=== PATIENT | male | born 1950 | race Caucasian/White ===

== ENCOUNTER → 2018-02-09 11:00 | Outpatient (POV) | payer MEDICARE, SELFPAY | PROVIDERS: Visit Provider Nurse Practitioner Acute Care | DX: Z00.00 Encounter for general adult medical examination without abnormal findings (principal) ==

== ENCOUNTER 2018-03-22 22:43 | Observation (INO) ==
[2018-03-22 23:20] LABS: Basophils % 0.5 % (0.1-2.0); Eosinophils # 0.1 K/mm3 (0.0-0.4); Eosinophils % 1.2 % (0.1-12.0); Hematocrit 45.9 % (42.0-52.0); Hemoglobin 15.6 g/dL (14.1-18.0); Lymphocytes # 1.9 K/mm3 (0.7-4.5); Lymphocytes % 23.1 K/mm3 (10-50); Mean Corpuscular HGB Conc 33.9 g/dL (31.8-35.4); Mean Corpuscular Hemoglobin 31.8 pg (27.0-31.2); Mean Corpuscular Volume 93.7 fl (80-94); Mean Platelet Volume 7.4 fl (7.4-10.4); Monocytes # 0.6 K/mm3 (0.1-1.0); Monocytes % 6.9 % (1.7-9.3); Neutrophils # 5.8 K/mm3 (1.8-7.8); Neutrophils % 68.4 % (37.0-80.0); Platelet Count 401 K/mm3 (142-424); Red Cell Distribution Width 13.2 % (11.5-17.5); White Blood Count 8.4 K/mm3 (4.8-10.8)
--- NOTE | 2018-03-22 23:24 | Emergency Department Note ---
ED Disposition Clinical Impression: Angina at rest Disposition: Admitted as Observation Condition on Discharge: Good - Critical Care Critical Care Time: No Attestation: On 03/22/18, the high probability of a clinically significant, sudden or life threatening deterioration of the following system(s) required my full and direct attention, intervention and personal management. The time I documented below is in addition to time spent performing reported procedures but includes the following listed in this critical care notation. Medical Decision Making - Medical Records Medical records reviewed: Yes: I reviewed the patient's medical records. - [place]und Inquiry Pt receiving controlled substance: No Vital Signs: 03/22/18 22:52 03/22/18 22:55 03/22/18 23:24 Temperature 98.6 F Temperature Source Oral Pulse Rate 64 Pulse Rate [Right Radial] 63 77 Respiratory Rate 20 20 Blood Pressure Blood Pressure [Right Arm] 184/104 136/89 Blood Pressure Mean [Right Arm] 130 104 Blood Pressure Source [Right Arm] Blood Pressure Position [Right Arm] 02 Sat by Pulse Oximetry 97 100 Oxygen Delivery Method Room Air 03/22/18 23:30 03/22/18 23:49 03/23/18 00:00 Temperature 98.2 F Temperature Source Oral Pulse Rate 68 Pulse Rate [Right Radial] 66 64 Respiratory Rate 20 Blood Pressure 153/74 Blood Pressure [Right Arm] 158/82 153/74 Blood Pressure Mean [Right Arm] 107 100 Blood Pressure Source [Right Arm] Automatic Cuff Automatic Cuff Blood Pressure Position [Right Arm] Supine Supine 02 Sat by Pulse Oximetry 97 93 L Oxygen Delivery Method - Lab Data Lab results reviewed: Yes: I reviewed the patient's lab results. Lab Results 03/22/18 23:10: WBC 8.4, RBC 4.90, Hgb 15.6, Hct 45.9, MCV 93.7, MCH 31.8 H, MCHC 33.9, RDW 13.2, Plt Count 401, MPV 7.4, Neut % (Auto) 68.4, Lymph % (Auto) 23.1, [place] % (Auto) 6.9, Eos % (Auto) 1.2, Baso % (Auto) 0.5, Neut # (Auto) 5.8 , Lymph # (Auto) 1.9, [place] # (Auto) 0.6, Eos # (Auto) 0.1, Baso # (Auto) 0.0 03/22/18 23:10: Sodium 142, Potassium 3.6, Chloride 105, Carbon Dioxide 30, Anion Gap 10.6, BUN 11, Creatinine 1.16, Estimated Creat Clear 79, Estimated GFR 63, Est GFR ( Amer) 76, Glucose 138 H, Calcium 9.1, Total Bilirubin 0.4, AST 19, ALT 36, Alkaline Phosphatase 73, Total Creatine Kinase 60, CK-MB ( CK-2) < 0.5, CK-MB (CK-2) Rel Index 0.8, Troponin I < 0.02, Total Protein 7.0, Albumin 3.7, Globulin 3.3 H, Albumin/Globulin Ratio 1.1 Result diagrams: 03/22/18 23:10 03/22/18 23:10 Orders (Tests/Meds): ED MEDICATIONS Discontinued Medications Generic Name Dose Route Start Last Admin Trade Name Freq PRN Reason Stop Dose Admin Aspirin 324 mg 03/22/18 23:13 03/22/18 23:25 Aspirin 81mg Chewable Tablet PO 03/22/18 23:14 324 mg ONCE ONE Administration Nitroglycerin 1 gm 03/22/18 23:38 03/22/18 23:39 Nitroglycerin 1 Inch Oint Udp TD 03/22/18 23:39 1 gm ONCE ONE Administration ORDERS Category Date Time Status XR chest 2V Stat Exams 03/22/18 22:58 Taken - Radiology Data #1 Image(s): Chest Image Reviewed: Yes I reviewed the patient's radiology image Preliminary Findings: Normal/NAD - ECG Data Tracing #1 I reviewed this ECG and interpreted as documented below: Normal Sinus Rhythm: Yes Ischemic changes: non-specific ST-T wave changes, t wave inversions - Physician Consults Physician Consulted: julián Reason -: Admission Chest Pain HPI - General Chief Complaint: Chest Pain Stated Complaint: High bp Time Seen by Provider: 03/22/18 23:23 Mode of Arrival: Family Vehicle Source of Information: Patient, Spouse, Medical Record Limitations: No Limitations Description of Symptoms (Recalled from ER Triage Doc. by RN): HYPERTENSION, CHEST PAIN THAT BEGAN AT APPROX 2000 TONIGHT WHILE WATCHING TV. PT STATES THAT HE CHECKED HIS BP WHEN HIS HEART STARTED ACTING UP AND FOUND THAT HIS BP WAS HIGH. - History of Present Illness HPI narrative: chest tightness over the last few hrs with assoc elevated bp - had gxt last yr which pt reports as neg MD complaint: chest pain indicative of cardiac Onset (ago): hour(s) Duration: now resolved Activity at onset: during rest Pain location: substernal Severity: moderate Quality: tightness Risk Factors for CAD: Hypertension, Hypercholesterolemia, Family Hx of CAD Treatments prior to or on arrival for Cardiac Chest Pain: none - MARQUIS Score Non-Stemi Age of patient: 65 yrs or more Number of risk factors for CAD: Presence of 3 or more Prior coronary artery stenosis(seen in coronary angiography): Less than 50% ST-Segment deviation on ECG (more than 1 min): Absent Prior aspirin intake: ASA intake in the last 7 days Severe anginal chest pain: Two or more episodes in last 24 hours Elevated cardiac markers(CK-MB or troponin): Absent Non-Stemi Risk Score: 4 - Related Data Prior Cardiac Testing/Procedures: Stress Test Home Medications Medication Instructions Recorded Confirmed Atenolol [Atenolol 50mg Tab] 50 mg PO DAILY 03/22/18 03/22/18 Atorvastatin Calcium [Atorvastatin 10 mg PO DAILY 03/22/18 03/22/18 10mg Tab] Cetirizine HCl [Zyrtec] 10 mg PO DAILY 03/22/18 03/22/18 Levothyroxine 88mcg (0.088mg) Tab 88 mcg PO DAILY 03/22/18 03/22/18 Lisinopril/Hydrochlorothiazide 12.5 mg PO DAILY 03/22/18 03/22/18 [Lisinopril-Hctz 10-12.5 mg Tab] Metoclopramide HCl [Metoclopramide 5 mg PO DAILY 03/22/18 03/22/18 10mg Tablet] Omeprazole [Omeprazole 20mg 20 mg PO DAILY 03/22/18 03/22/18 Capsule] Allergies Allergy/AdvReac Type Severity Reaction Status Date / Time No Known Allergies Allergy Unverified 11/11/17 14:36 [facility] History I have reviewed the patient's past medical history: Yes Medical History: Denies:: Cancer, Diabetes Mellitus Type 1, Diabetes Mellitus Type 2, MRSA Amputation: No Fractures: No - Social History Smoking Status: Never smoker Alcohol Intake: never - Psychiatric History Expresses thoughts of harming self/others: None Suicide Plan Description: No Plan ROS Obtained: Yes All systems reviewed & no additional complaints - Constitutional Constitutional: Denies fever(s) - Eyes Eyes: Denies change in vision - ENT Ears, Nose, Mouth, and Throat: Denies sore throat - Cardiovascular Cardiovascular: Reports chest pain, Reports chest pain at rest - Respiratory Respiratory: No cough, No coughing up blood - Gastrointestinal Gastrointestingal: Denies: abdominal pain - Genitourinary Female Genitourinary: Denies hematuria - Musculoskeletal Musculoskeletal: Denies joint pain - Integumentary/Breasts Skin/Breast: Denies rash - Neurologic Neurologic: Denies seizure-like activity Physical Exam - General General appearance: in no apparent distress - Head Head exam: normocephalic - Eye Eye exam: Present: PERRL, EOMI - ENT ENT exam: Present: mucous membranes moist - Neck Neck exam: Present: trachea midline - Respiratory Respiratory exam: Present: normal lung sounds bilaterally. Absent: respiratory distress - Cardiovascular Cardiovascular exam: Present: regular rate, systolic murmur, +S4 - Abdominal Exam Abdominal exam: Present: soft - Extremities Exam Extremities exam: Absent: calf tenderness - Neurological Exam Neurological exam: Present: alert, oriented X3, CN II-XII intact - Psychiatric Psychiatric exam: Present: normal affect - Skin Skin exam: Absent: rash
[2018-03-22 23:41] LABS: Alanine Aminotransferase 36 U/L (12-78); Albumin Level 3.7 gm/dL (3.4-5.0); Albumin/Globulin Ratio 1.1 (1.1-1.8); Alkaline Phosphatase 73 U/L (46-116); Anion Gap 10.6 mEq/L (5-15); Aspartate Amino Transferase 19 U/L (15-37); Bilirubin,Total 0.4 mg/dL (0.2-1.0); Blood Urea Nitrogen 11 mg/dL (7-18); Calcium 9.1 mg/dL (8.5-10.1); Carbon Dioxide 30 mmol/L (21.0-32.0); Chloride 105 mmol/L (98-107); Creatine Kinase 60 U/L (39-308); Globulin 3.3 gm/dl (1.3-3.2); Glucose 138 mg/dL (74-106); Potassium 3.6 mmoL/L (3.5-5.1); Sodium 142 mmol/L (136-145)
[2018-03-23 06:39] LABS: Basophils % 0.7 % (0.1-2.0); Eosinophils # 0.1 K/mm3 (0.0-0.4); Lymphocytes # 1.3 K/mm3 (0.7-4.5); Monocytes # 0.4 K/mm3 (0.1-1.0)
[2018-03-23 06:46] LABS: Basophils # 0.1 K/mm3 (0-0.2); Eosinophils % 1.4 % (0.1-12.0); Hematocrit 42.9 % (42.0-52.0); Lymphocytes % 21.3 K/mm3 (10-50); Mean Corpuscular HGB Conc 32.7 g/dL (31.8-35.4); Mean Corpuscular Hemoglobin 30.6 pg (27.0-31.2); Mean Corpuscular Volume 93.7 fl (80-94); Mean Platelet Volume 7.5 fl (7.4-10.4); Monocytes % 5.9 % (1.7-9.3); Neutrophils # 4.3 K/mm3 (1.8-7.8); Neutrophils % 70.7 % (37.0-80.0); Platelet Count 346 K/mm3 (142-424); Red Blood Count 4.58 M/mm3 (4.60-6.20); White Blood Count 6.1 K/mm3 (4.8-10.8)
[2018-03-23 06:48] LABS: Anion Gap 8.9 mEq/L (5-15); Blood Urea Nitrogen 13 mg/dL (7-18); Carbon Dioxide 30 mmol/L (21.0-32.0); Chloride 107 mmol/L (98-107); Chol/HDL Ratio 3.5 (1-3.5); Cholesterol 95 mg/dL (140-200); Glucose 104 mg/dL (74-106); HDL Cholesterol 27 mg/dL (27-67); LDL Cholesterol 54 mg/dL (0-130); Potassium 3.9 mmoL/L (3.5-5.1); Sodium 142 mmol/L (136-145); Triglycerides 70 mg/dL (30-200); VLDL Cholesterol 14 mg/dL (0-40)
--- NOTE | 2018-03-23 07:14 | History & Physical Report ---
*Admission Date: 03/22/18 *Chief complaint: Chest pain *History of present illness: 67-year-old male with history of hypertension and hyperlipidemia presented to the emergency department after onset of chest pain at home. Patient reports he was seated when he developed a substernal chest pain that was nonradiating in nature. Patient checked his blood pressure at home and got 150/85. When his chest pain did not cease he decided to come to the emergency department for evaluation. By the time he arrived in the emergency department chest pain had stopped. In the ER blood pressure was noted to be elevated. He was given nitroglycerin and aspirin, but once again she is chest pain had already stopped. Patient underwent routine chest pain workup in the emergency department without significant findings. Patient was admitted for rule out of [place] and cardiology consultation. Patient was admitted almost exactly 1 year ago for chest pain as well and at that time had a negative Cardiolite stress test and unremarkable echocardiogram. Patient reported that he had another brief episode of chest pain this morning prior to his echocardiogram [facility] History Medical History: Reports:: Hyperlipidemia, Hypertension Denies:: Cancer, Diabetes Mellitus Type 1, Diabetes Mellitus Type 2, MRSA Other Medical History: Reports: Hypothyroidism Other Surgeries: Yes: Cancer Surgery (COLON RESECTION), Colon Resection Amputation: No Fractures: No - *Social History Educational Level: Completed High School Smoking Status: Never smoker Alcohol Intake: never Occupational Status: employed Housing: house Household Members: spouse - Psychiatric History Expresses thoughts of harming self/others: None Suicide Plan Description: No Plan *Family Hx:: Heart Attack Review of Systems - Review of Systems Review of systems:: pertinent systems reviewed and negative unless documented below - Constitutional Denies anorexia, Denies chills - Eyes Denies change in vision - *Cardiovascular Reports chest pain, Reports chest pain at rest - *Respiratory Denies shortness of breath, Denies shortness of breath with activity - *Gastrointestinal Denies belching, Denies bloating - *Neurologic Denies seizure-like activity Meds Home Medications Medication Instructions Recorded Confirmed Type Atenolol [Atenolol 50mg Tab] 50 mg PO DAILY 03/22/18 03/23/18 History Atorvastatin Calcium [Atorvastatin 10 mg PO HS 03/22/18 03/23/18 History 10mg Tab] Cetirizine HCl [Zyrtec] 10 mg PO HS 03/22/18 03/23/18 History Levothyroxine 88mcg (0.088mg) Tab 88 mcg PO DAILY 03/22/18 03/23/18 History Lisinopril/Hydrochlorothiazide 12.5 mg PO DAILY 03/22/18 03/23/18 History [Lisinopril-Hctz 10-12.5 mg Tab] Metoclopramide HCl [Metoclopramide 5 mg PO DAILY 03/22/18 03/23/18 History 10mg Tablet] Omeprazole [Omeprazole 20mg 20 mg PO HS 03/22/18 03/23/18 History Capsule] Acetaminophen 500 mg PO BID 03/23/18 03/23/18 History Fluticasone Propionate [Flovent 50 mcg IH BID 03/23/18 03/23/18 History Diskus] Multivitamin [Multivitamins] 1 each PO DAILY 03/23/18 03/23/18 History Allergies Allergy/AdvReac Type Severity Reaction Status Date / Time No Known Allergies Allergy Verified 03/23/18 00:57 Exam Vital signs and Labs for Last 24 Hours: Temp Pulse Resp BP Pulse Ox 97.9 F 69 16 102/58 94 L 03/23/18 04:38 03/23/18 04:38 03/23/18 04:38 03/23/18 04:38 03/23/18 04:38 Laboratory Results - last 24 hr 03/22/18 23:10: WBC 8.4, RBC 4.90, Hgb 15.6, Hct 45.9, MCV 93.7, MCH 31.8 H, MCHC 33.9, RDW 13.2, Plt Count 401, MPV 7.4, Neut % (Auto) 68.4, Lymph % (Auto) 23.1, [place] % (Auto) 6.9, Eos % (Auto) 1.2, Baso % (Auto) 0.5, Neut # (Auto) 5.8 , Lymph # (Auto) 1.9, [place] # (Auto) 0.6, Eos # (Auto) 0.1, Baso # (Auto) 0.0 03/22/18 23:10: Sodium 142, Potassium 3.6, Chloride 105, Carbon Dioxide 30, Anion Gap 10.6, BUN 11, Creatinine 1.16, Estimated Creat Clear 79, Estimated GFR 63, Est GFR ( Amer) 76, Glucose 138 H, Calcium 9.1, Total Bilirubin 0.4, AST 19, ALT 36, Alkaline Phosphatase 73, Total Creatine Kinase 60, CK-MB ( CK-2) < 0.5, CK-MB (CK-2) Rel Index 0.8, Troponin I < 0.02, Total Protein 7.0, Albumin 3.7, Globulin 3.3 H, Albumin/Globulin Ratio 1.1 03/23/18 00:40: Troponin I < 0.02 03/23/18 02:45: Troponin I < 0.02 03/23/18 06:00: WBC 6.1 D, RBC 4.58 L, Hgb 14.0 L D, Hct 42.9, MCV 93.7, MCH 30.6, MCHC 32.7, RDW 13.0, Plt Count 346, MPV 7.5, Neut % (Auto) 70.7, Lymph % ( Auto) 21.3, [place] % (Auto) 5.9, Eos % (Auto) 1.4, Baso % (Auto) 0.7, Neut # (Auto ) 4.3, Lymph # (Auto) 1.3, [place] # (Auto) 0.4, Eos # (Auto) 0.1, Baso # (Auto) 0.1 03/23/18 06:00: Sodium 142, Potassium 3.9, Chloride 107, Carbon Dioxide 30, Anion Gap 8.9, BUN 13, Creatinine 1.04, Estimated Creat Clear 91, Estimated GFR 72, Est GFR ( Amer) 87, Glucose 104 D, Magnesium 1.8, Troponin I < 0.02 , Triglycerides 70, Cholesterol 95 L, LDL Cholesterol 54, VLDL Cholesterol 14, HDL Cholesterol 27, Cholesterol/HDL Ratio 3.5 I & O for Last 24 hours: Intake & Output 03/20/18 03/21/18 03/22/18 03/23/18 11:59 11:59 11:59 11:59 Intake Total 227 / 227 Balance 227 / 227 Weight 200 lb 8 oz Narrative: Patient is awake and alert and in no distress. ENT exam is grossly normal. Neck is without carotid bruits. Lungs are clear to auscultation. Heart has regular rate and rhythm. Extremities are without any pedal edema. H&P: Result - Labs Labs: Short CBC 03/22/18 03/23/18 Range/Units 23:10 06:00 WBC 8.4 6.1 D (4.8-10.8) K/mm3 Hgb 15.6 14.0 L D (14.1-18.0) g/dL Hct 45.9 42.9 (42.0-52.0) % Plt Count 401 346 (142-424) K/mm3 BMP 03/22/18 03/23/18 23:10 06:00 Sodium 142 142 Potassium 3.6 3.9 Chloride 105 107 Carbon Dioxide 30 30 BUN 11 13 Creatinine 1.16 1.04 Glucose 138 H 104 D Calcium 9.1 Cardiac Enzymes 03/22/18 03/23/18 03/23/18 Range/Units 23:10 00:40 02:45 Total Creatine Kinase 60 (39-308) U/L CK-MB (CK-2) < 0.5 (0.0-3.6) ng/ml Troponin I < 0.02 < 0.02 < 0.02 (0.00-0.06) ng/ml 03/23/18 Range/Units 06:00 Total Creatine Kinase (39-308) U/L CK-MB (CK-2) (0.0-3.6) ng/ml Troponin I < 0.02 (0.00-0.06) ng/ml Liver Function 03/22/18 Range/Units 23:10 Total Bilirubin 0.4 (0.2-1.0) mg/dL AST 19 (15-37) U/L ALT 36 (12-78) U/L Alkaline Phosphatase 73 (46-116) U/L Albumin 3.7 (3.4-5.0) gm/dL Assessment and Plan (1) Angina at rest Current visit: Yes Status: Acute Category: Medical Code(s): I20.8 - Other forms of angina pectoris - Assessment and plan all Dx Assessment and Plan for all problems:: 1. Echocardiogram and cardiology consultation
--- NOTE | 2018-03-23 07:24 | Pharmacy Consult Notes ---
[facility] Pharmacy VTE Monitoring - Patient Demographics Admission date: 03/23/18 Report Date: 03/23/18 Time: 07:24 Allergies/Adverse Reactions: Patient Allergies No Known Allergies Allergy (Verified 03/23/18 00:57) Height: 1.73 m Weight: 90.945 kg Patient Problems: Current Active Problems Angina at rest (Acute) - VTE Risk Labs: VTE Related Lab Results Hgb 14.0 g/dL (14.1-18.0) L D 03/23/18 06:00 Hct 42.9 % (42.0-52.0) 03/23/18 06:00 Plt Count 346 K/mm3 (142-424) 03/23/18 06:00 BUN 13 mg/dL (7-18) 03/23/18 06:00 Creatinine 1.04 mg/dL (0.70-1.30) 03/23/18 06:00 Estimated Creat Clear 91 mL/min (0-300) 03/23/18 06:00 Was VTE Risk Assessment Performed: Yes VTE Score: 2 VTE Risk Level: Very Low Risk - Prophylaxis VTE Prophylaxis Ordered?: Yes Types of VTE Prophylaxis: TEDS Knee High Location of Applied Device: Bilateral Lower Extremeties - VTE Diagnosis Confirmed Treatment or plan recommended: Continue Current Treatment
--- NOTE | 2018-03-23 08:09 | Consult Report ---
History of Present Illness Consult date: 03/23/18 Requesting physician: Alden Hidalgo Consult reason: chest pain Chief complaint: chest pain Additional Medical History:: 1. chest pain, 03/2017 A. Lexiscan myoview, no ischemia with normal EF B. 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 Normal cardiac cath, 1990 2. HTN 3. HLD 4. FH of CAD in father at age 64 5. Hypothyroidism 6. Colon cancer with partial resection. No chemo or radiation A. EGD, 10/2017, moderate esophageal dysmotility with obstipation, mild GERD 7. Cholecystectomy History of present illness: 67-year-old male with history of hypertension and hyperlipidemia presented to the emergency department after onset of chest pain at home. Patient reports he was seated when he developed a substernal chest pain that was nonradiating in nature. Patient checked his blood pressure at home and got 150/85. When his chest pain did not cease he decided to come to the emergency department for evaluation. By the time he arrived in the emergency department chest pain had stopped. In the ER blood pressure was noted to be elevated. He was given nitroglycerin and aspirin, but once again his chest pain had already stopped. Patient underwent routine chest pain workup in the emergency department without significant findings. Patient was admitted for rule out of [place] and cardiology consultation. Patient was admitted almost exactly 1 year ago for chest pain as well and at that time had a negative Cardiolite stress test and unremarkable echocardiogram. Patient reported that he had another brief episode of chest pain this morning prior to his echocardiogram. The above per Dr. Hidalgo. Pt relates the chest pain mentioned above has recurred this AM and is increasing in intensity. He is very concerned about having an NE due to his father having one at age 64. [facility] History Medical History: Reports:: Hyperlipidemia, Hypertension Denies:: Cancer, Diabetes Mellitus Type 1, Diabetes Mellitus Type 2, MRSA Other Medical History: Reports: Hypothyroidism, Thyroid Disease Other Surgeries: Yes: Cancer Surgery (COLON RESECTION), Colon Resection Amputation: No Fractures: No - *Social History Educational Level: Completed High School Smoking Status: Never smoker Alcohol Intake: never Occupational Status: employed Housing: house Household Members: spouse - Psychiatric History Expresses thoughts of harming self/others: None Suicide Plan Description: No Plan *Family Hx:: Heart Attack Meds Home Medications Medication Instructions Recorded Confirmed Type Atenolol [Atenolol 50mg Tab] 50 mg PO DAILY 03/22/18 03/23/18 History Atorvastatin Calcium [Atorvastatin 10 mg PO HS 03/22/18 03/23/18 History 10mg Tab] Cetirizine HCl [Zyrtec] 10 mg PO HS 03/22/18 03/23/18 History Levothyroxine Sodium 88 mcg PO DAILY 03/22/18 03/23/18 History [Levothyroxine 88mcg (0.088mg) Tab] Lisinopril/Hydrochlorothiazide 1 tab PO DAILY 03/22/18 03/23/18 History [Lisinopril-Hctz 10-12.5 mg Tab] Metoclopramide HCl [Metoclopramide 5 mg PO DAILY 03/22/18 03/23/18 History 10mg Tablet] Omeprazole [Omeprazole 20mg 20 mg PO HS 03/22/18 03/23/18 History Capsule] Acetaminophen 500 mg PO BID 03/23/18 03/23/18 History Fluticasone Propionate [Flovent 1 spray IH BID 03/23/18 03/23/18 History Diskus] Multivitamin [Multivitamins] 1 tab PO DAILY 03/23/18 03/23/18 History Allergies Allergy/AdvReac Type Severity Reaction Status Date / Time No Known Allergies Allergy Verified 03/23/18 00:57 Review of Systems - *Cardiovascular Reports chest pain - *Respiratory Denies shortness of breath - *Gastrointestinal Reports heartburn, Denies abdominal pain - *Neurologic Denies seizure-like activity Exam Vital signs and Labs for Last 24 Hours: Temp Pulse Resp BP Pulse Ox 98.4 F 55 L 20 118/68 98 03/23/18 07:22 03/23/18 07:22 03/23/18 07:22 03/23/18 07:22 03/23/18 07:22 Laboratory Results - last 24 hr 03/22/18 23:10: WBC 8.4, RBC 4.90, Hgb 15.6, Hct 45.9, MCV 93.7, MCH 31.8 H, MCHC 33.9, RDW 13.2, Plt Count 401, MPV 7.4, Neut % (Auto) 68.4, Lymph % (Auto) 23.1, [place] % (Auto) 6.9, Eos % (Auto) 1.2, Baso % (Auto) 0.5, Neut # (Auto) 5.8 , Lymph # (Auto) 1.9, [place] # (Auto) 0.6, Eos # (Auto) 0.1, Baso # (Auto) 0.0 03/22/18 23:10: Sodium 142, Potassium 3.6, Chloride 105, Carbon Dioxide 30, Anion Gap 10.6, BUN 11, Creatinine 1.16, Estimated Creat Clear 79, Estimated GFR 63, Est GFR ( Amer) 76, Glucose 138 H, Calcium 9.1, Total Bilirubin 0.4, AST 19, ALT 36, Alkaline Phosphatase 73, Total Creatine Kinase 60, CK-MB ( CK-2) < 0.5, CK-MB (CK-2) Rel Index 0.8, Troponin I < 0.02, Total Protein 7.0, Albumin 3.7, Globulin 3.3 H, Albumin/Globulin Ratio 1.1 03/23/18 00:40: Troponin I < 0.02 03/23/18 02:45: Troponin I < 0.02 03/23/18 06:00: WBC 6.1 D, RBC 4.58 L, Hgb 14.0 L D, Hct 42.9, MCV 93.7, MCH 30.6, MCHC 32.7, RDW 13.0, Plt Count 346, MPV 7.5, Neut % (Auto) 70.7, Lymph % ( Auto) 21.3, [place] % (Auto) 5.9, Eos % (Auto) 1.4, Baso % (Auto) 0.7, Neut # (Auto ) 4.3, Lymph # (Auto) 1.3, [place] # (Auto) 0.4, Eos # (Auto) 0.1, Baso # (Auto) 0.1 03/23/18 06:00: Sodium 142, Potassium 3.9, Chloride 107, Carbon Dioxide 30, Anion Gap 8.9, BUN 13, Creatinine 1.04, Estimated Creat Clear 91, Estimated GFR 72, Est GFR ( Amer) 87, Glucose 104 D, Magnesium 1.8, Troponin I < 0.02 , Triglycerides 70, Cholesterol 95 L, LDL Cholesterol 54, VLDL Cholesterol 14, HDL Cholesterol 27, Cholesterol/HDL Ratio 3.5 I & O for Last 24 hours: Intake & Output 03/20/18 03/21/18 03/22/18 03/23/18 11:59 11:59 11:59 11:59 Intake Total 227 / 227 Balance 227 / 227 Weight 200 lb 8 oz - *Routine Neck Exam Absent: JVD, carotid bruit - *Routine Respiratory Exam Present: CTA bilaterally - *Routine Cardiovascular Exam Present: RRR. Absent: murmur, gallop - *Routine Abdominal Exam Present: soft. Absent: tenderness - *Routine Extremities Exam Absent: edema - *Routine Neurological Exam Present: alert, oriented X3, moving all extremities Assessment and Plan (1) Angina at rest Current visit: Yes Status: Acute Category: Medical Code(s): I20.8 - Other forms of angina pectoris (2) Hypertension Current visit: Yes Status: Acute Category: Medical Code(s): I10 - Essential (primary) hypertension (3) Hyperlipidemia Current visit: Yes Status: Acute Category: Medical Code(s): E78.5 - Hyperlipidemia, unspecified (4) GERD (gastroesophageal reflux disease) Current visit: Yes Status: Acute Category: Medical Code(s): K21.9 - Gastro -esophageal reflux disease without esophagitis (5) FH myocardial infarction male first degree age known Current visit: Yes Status: Acute Category: Medical Code(s): Z82.49 - Family history of ischemic heart disease and other diseases of the circulatory system - Assessment and plan all Dx Assessment and Plan for all problems:: 1. No evidence of ACS, but with recurrent chest pain despite NTG paste in patient with HTN, HLD and FH of ASHD in father, will recommend proceeding with [facility] today. Pt agrees to proceed. MARQUIS score of 3 (age, recurrent chest pain, risk factors) 2. Continue current meds including atenolol, omeprazole and statin. He did receive ASA last night.
--- NOTE | 2018-03-23 12:57 | Discharge Summary ---
General - General Admission date:: 03/23/18 Discharge date: 03/23/18 HPI HPI: 67-year-old male with history of hypertension and hyperlipidemia presented to the emergency department after onset of chest pain at home. Patient reports he was seated when he developed a substernal chest pain that was nonradiating in nature. Patient checked his blood pressure at home and got 150/85. When his chest pain did not cease he decided to come to the emergency department for evaluation. By the time he arrived in the emergency department chest pain had stopped. In the ER blood pressure was noted to be elevated. He was given nitroglycerin and aspirin, but once again she is chest pain had already stopped. Patient underwent routine chest pain workup in the emergency department without significant findings. Patient was admitted for rule out of NV and cardiology consultation. Patient was admitted almost exactly 1 year ago for chest pain as well and at that time had a negative Cardiolite stress test and unremarkable echocardiogram. Patient reported that he had another brief episode of chest pain this morning prior to his echocardiogram Hospital Course Hospital Course: Patient was admitted and underwent left heart Catheterization. LHC revealed a myocardial bridge but no obstrutive CAD. Left Ventricular end diastolic pressure was elevated so furosemide was added to his medical regimen. Once the post procedure observation period was complete patient was discharged to home. Objective Vital signs: Temp Pulse Resp BP Pulse Ox 97 F L 67 20 80/47 95 03/23/18 12:00 03/23/18 12:00 03/23/18 12:00 03/23/18 12:00 03/23/18 12:00 Results Labs on day of discharge: Labs from last 24 hours 03/23/18 03/23/18 03/23/18 12:05 06:00 06:00 WBC 6.1 D RBC 4.58 L Hgb 14.0 L D Hct 42.9 MCV 93.7 MCH 30.6 MCHC 32.7 RDW 13.0 Plt Count 346 MPV 7.5 Neut % (Auto) 70.7 Lymph % (Auto) 21.3 Crockett % (Auto) 5.9 Eos % (Auto) 1.4 Baso % (Auto) 0.7 Neut # (Auto) 4.3 Lymph # (Auto) 1.3 Crockett # (Auto) 0.4 Eos # (Auto) 0.1 Baso # (Auto) 0.1 Sodium 142 Potassium 3.9 Chloride 107 Carbon Dioxide 30 Anion Gap 8.9 BUN 13 Creatinine 1.04 Estimated Creat Clear 91 Estimated GFR 72 Est GFR ( Amer) 87 Glucose 104 D POC Glucose 97 Calcium Magnesium 1.8 Total Bilirubin AST ALT Alkaline Phosphatase Total Creatine Kinase CK-MB (CK-2) CK-MB (CK-2) Rel Index Troponin I < 0.02 Total Protein Albumin Globulin Albumin/Globulin Ratio Triglycerides 70 Cholesterol 95 L LDL Cholesterol 54 VLDL Cholesterol 14 HDL Cholesterol 27 Cholesterol/HDL Ratio 3.5 03/23/18 03/23/18 03/22/18 02:45 00:40 23:10 WBC RBC Hgb Hct MCV MCH MCHC RDW Plt Count MPV Neut % (Auto) Lymph % (Auto) Crockett % (Auto) Eos % (Auto) Baso % (Auto) Neut # (Auto) Lymph # (Auto) Crockett # (Auto) Eos # (Auto) Baso # (Auto) Sodium 142 Potassium 3.6 Chloride 105 Carbon Dioxide 30 Anion Gap 10.6 BUN 11 Creatinine 1.16 Estimated Creat Clear 79 Estimated GFR 63 Est GFR ( Amer) 76 Glucose 138 H POC Glucose Calcium 9.1 Magnesium Total Bilirubin 0.4 AST 19 ALT 36 Alkaline Phosphatase 73 Total Creatine Kinase 60 CK-MB (CK-2) < 0.5 CK-MB (CK-2) Rel Index 0.8 Troponin I < 0.02 < 0.02 < 0.02 Total Protein 7.0 Albumin 3.7 Globulin 3.3 H Albumin/Globulin Ratio 1.1 Triglycerides Cholesterol LDL Cholesterol VLDL Cholesterol HDL Cholesterol Cholesterol/HDL Ratio 03/22/18 23:10 WBC 8.4 RBC 4.90 Hgb 15.6 Hct 45.9 MCV 93.7 MCH 31.8 H MCHC 33.9 RDW 13.2 Plt Count 401 MPV 7.4 Neut % (Auto) 68.4 Lymph % (Auto) 23.1 Crockett % (Auto) 6.9 Eos % (Auto) 1.2 Baso % (Auto) 0.5 Neut # (Auto) 5.8 Lymph # (Auto) 1.9 Crockett # (Auto) 0.6 Eos # (Auto) 0.1 Baso # (Auto) 0.0 Sodium Potassium Chloride Carbon Dioxide Anion Gap BUN Creatinine Estimated Creat Clear Estimated GFR Est GFR ( Amer) Glucose POC Glucose Calcium Magnesium Total Bilirubin AST ALT Alkaline Phosphatase Total Creatine Kinase CK-MB (CK-2) CK-MB (CK-2) Rel Index Troponin I Total Protein Albumin Globulin Albumin/Globulin Ratio Triglycerides Cholesterol LDL Cholesterol VLDL Cholesterol HDL Cholesterol Cholesterol/HDL Ratio DS: Diagnosis - Discharge Diagnosis (1) Angina at rest Status: Acute (2) Hypertension Status: Acute (3) Hyperlipidemia Status: Acute (4) GERD (gastroesophageal reflux disease) Status: Acute (5) FH myocardial infarction male first degree age known Status: Acute Discharge Plan - Patient Discharge Instructions ACTIVITY: Continue current activity DIET: continue same diet - Follow up Plan Follow up with: Shoaib Araiza MD [Staff Physician] - 1 week Alden Hidalgo MD [Primary Care Provider] - 2 weeks Home Medications: Home Medications Medication Instructions Recorded Confirmed Type Atenolol [Atenolol 50mg Tab] 50 mg PO DAILY 03/22/18 03/23/18 History Atorvastatin Calcium [Atorvastatin 10 mg PO HS 03/22/18 03/23/18 History 10mg Tab] Cetirizine HCl [Zyrtec] 10 mg PO HS 03/22/18 03/23/18 History Levothyroxine Sodium 88 mcg PO DAILY 03/22/18 03/23/18 History [Levothyroxine 88mcg (0.088mg) Tab] Lisinopril/Hydrochlorothiazide 1 tab PO DAILY 03/22/18 03/23/18 History [Lisinopril-Hctz 10-12.5 mg Tab] Metoclopramide HCl [Metoclopramide 5 mg PO ACHS 03/22/18 03/23/18 History 10mg Tablet] Omeprazole [Omeprazole 20mg 40 mg PO HS 03/22/18 03/23/18 History Capsule] Acetaminophen 500 mg PO BID 03/23/18 03/23/18 History Fluticasone Propionate [Flovent 1 spray IH BID 03/23/18 03/23/18 History Diskus] Montelukast Sodium [Montelukast 10 mg PO HS 03/23/18 03/23/18 History 10mg Tab] Multivitamin [Multivitamins] 1 tab PO DAILY 03/23/18 03/23/18 History Prescriptions/Medication Reconciliation: New Furosemide [Lasix 40mg tablet] 40 mg PO DAILY #30 tab Continue Metoclopramide HCl [Metoclopramide 10mg Tablet] 5 mg PO ACHS Lisinopril/Hydrochlorothiazide [Lisinopril-Hctz 10-12.5 mg Tab] 1 tab PO DAILY Atorvastatin Calcium [Atorvastatin 10mg Tab] 10 mg PO HS Omeprazole [Omeprazole 20mg Capsule] 40 mg PO HS Levothyroxine Sodium [Levothyroxine 88mcg (0.088mg) Tab] 88 mcg PO DAILY Atenolol [Atenolol 50mg Tab] 50 mg PO DAILY Fluticasone Propionate [Flovent Diskus] 1 spray IH BID Multivitamin [Multivitamins] 1 tab PO DAILY Acetaminophen 500 mg PO BID Montelukast Sodium [Montelukast 10mg Tab] 10 mg PO HS Cetirizine HCl [Zyrtec] 10 mg PO HS
--- NOTE | 2018-03-23 21:58 | Cardiology Report ---
PROCEDURE: 2-D M-mode and color Doppler study INDICATIONS FOR THE TEST: Chest pain X COPD Heart Murmur Tobacco Smoking Palpitations Fatigue Syncope Edema HypertensionXDiabetes Mellitus Rheumatic Fever SOB TEJEDA Obesity HyperlipidemiaX Family History HD Additional History MVP PATIENT INFORMATION HEIGHT: 68 WEIGHT:195 GENDER: Male B/P:136/89 2-D/M-MODE INTERPRETATION: 2-D MEASUREMENTS OBSERVED VALUES IN CMS Right Ventricular Dimension (RVDd) 2.5 Interventricular Septum (Thickness)(IVsd) 1.1 Left Ventricular Internal Dimensions(LVIDd) 4.9 Left Ventricular Posterior Wall (Thickness)(LVPWd) 1.1 Aortic Root 3.0 Aortic Cusp Separation Left Atrial Dimensions (LAD) 3.2 2D 1. Technically difficult study because of the patient's factor and poor acoustic windows 2. Left atrium is mildly enlarged, left ventricle is normal size mild concentric left ventricular hypertrophy, visually estimated ejection fraction 55% with no obvious regional wall motion abnormality. 3. The right atrium and right ventricle are normal size and contractility. 4. The aortic valve is minimally thickened and fibrosed. 5. The mitral valve leaflets of myxomatous, there is mild prolapse of both anterior and posterior mitral leaflet. 6. The tricuspid valve is structurally normal 7. The pulmonic valve is poorly visualized. 8. No significant pericardial effusion noted. DOPPLER INTERROGATION: Doppler interrogation of the aortic, mitral and tricuspid valvular presence of mild mitral and tricuspid regurgitation, tricuspid and jet velocity insufficient for acquisition of the right ventricular systolic pressure. Diastolic parameters are inconclusive. CONCLUSION: 1. Technically difficult study because of the patient's factor and poor acoustic windows 2. Mildly enlarged left atrium, normal left ventricular size, mild concentric left ventricular hypertrophy, visually estimated ejection fraction 55% with no obvious regional wall motion abnormality, diastolic parameters are inconclusive. 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 Mild tricuspid regurgitation 5. No significant pericardial effusion noted.
== END 2018-03-23 16:15 | disposition home or self-care (01) ==
LOC: 2ND 22:43 → ER 22:43 → 2ND 03-23 00:46
PROVIDERS: ADMIT Internal Medicine Adolescent Medicine; ATTEND Family Medicine

== ENCOUNTER → 2018-05-13 08:08 | Outpatient (CLI) | payer MEDICARE, SELFPAY ==
[2018-05-13 09:01] LABS: Anion Gap 10.9 mEq/L (5-15); Blood Urea Nitrogen 17 mg/dL (7-18); Calcium 9.5 mg/dL (8.5-10.1); Carbon Dioxide 31 mmol/L (21.0-32.0); Chloride 103 mmol/L (98-107); Creatinine,Serum 1.19 mg/dL (0.70-1.30); Estimated Glomerular Filt Rate 61 ml/min (>60); GFR (African American) 74 ML/MIN (>60); Glucose 109 mg/dL (74-106); Potassium 3.9 mmoL/L (3.5-5.1); Sodium 141 mmol/L (136-145)
== END ==
PROVIDERS: Visit Provider Physician Assistant
DX: R07.89 Other chest pain (principal); Q24.5 Malformation of coronary vessels; R94.31 Abnormal electrocardiogram [ECG] [EKG]; I25.118 Atherosclerotic heart disease of native coronary artery with other forms of angina pectoris; R06.09 Other forms of dyspnea; I10 Essential (primary) hypertension; E78.2 Mixed hyperlipidemia
CPT/HCPCS: 36415; 80048

== ENCOUNTER → 2018-05-26 11:10 | Outpatient (POV) | payer MEDICARE, SELFPAY | PROVIDERS: Visit Provider Otolaryngology | DX: Z00.00 Encounter for general adult medical examination without abnormal findings (principal) ==

== ENCOUNTER → 2018-07-14 08:43 | Outpatient (POV) | payer MEDICARE, SELFPAY | PROVIDERS: Family Provider Family Medicine; Visit Provider Otolaryngology | DX: Z00.00 Encounter for general adult medical examination without abnormal findings (principal) ==

== ENCOUNTER → 2018-07-31 12:49 | Outpatient (CLI) | payer MEDICARE, SELFPAY ==
--- NOTE | 2018-07-31 12:55 | CT_ITS ---
CT sinus wo con CLINICAL INDICATION: ITS.REASON: CHRONIC MAXILLARY SINUSITIS ORDERING PHYSICIAN: Megan Zimmerman MD PATIENT AGE: 68 years COMPARISON: None TECHNIQUE:Axial images obtained with sagittal and coronal reformats. All CT scans at the facility use one or more dose reduction, viz: automated exposure control, ma/kV adjustment per patient size (including targeted exams where dose is matched to indication, i.e. head), or iterative reconstruction technique. FINDINGS: There is mild mucosal thickening of the left maxillary sinus inferiorly. No sinus air-fluid levels are evident. No masses are evident. There is mild leftward nasal septal deviation anteriorly and inferiorly causing narrowing of the nasal canal. The ostiomeatal units are patent. There are bilateral ethmoid Jose Angel cells causing some narrowing of the OMCs. The orbits have an unremarkable appearance. There is minimal opacification of left mastoid air cells posteriorly. The TMJs have an unremarkable appearance. Incidental note is made of prominence CSF density in the supravermian region measuring 3.3 x 2.1 cm and may represent an arachnoid cyst. This is causing some compression upon the superior aspect of the vermis. MRI may be of further value for confirmation. IMPRESSION: 1. No evidence of acute sinusitis. 2. Minimal mucosal thickening of the left maxillary sinus and opacification of left mastoid air cells. 3. Leftward nasal septal deviation. 4. Bilateral Jose Angel cells causing some mild narrowing of the OMCs 5. CSF collection in the supravermian region which may be due to an arachnoid cyst and may be confirmed with MRI without and with contrast
== END ==
PROVIDERS: Family Provider Family Medicine; PCP Family Medicine; Visit Provider Otolaryngology
DX: J32.0 Chronic maxillary sinusitis (principal)
CPT/HCPCS: 70486

== ENCOUNTER → 2018-08-17 08:43 | Outpatient (CLI) | payer MEDICARE, SELFPAY ==
[2018-08-17 10:18] LABS: Blood Urea Nitrogen 11 mg/dL (7-18); Creatinine,Serum 1.12 mg/dL (0.70-1.30); Estimated Glomerular Filt Rate 66 ml/min (>60); GFR (African American) 79 ML/MIN (>60)
== END ==
PROVIDERS: PCP Family Medicine; Visit Provider Otolaryngology
DX: Q24.5 Malformation of coronary vessels (principal); I10 Essential (primary) hypertension; E78.2 Mixed hyperlipidemia; I51.9 Heart disease, unspecified
CPT/HCPCS: 36415; 82565; 84520

== ENCOUNTER → 2018-08-19 09:52 | Outpatient (CLI) | payer MEDICARE, SELFPAY ==
--- NOTE | 2018-08-19 09:56 | MR_ITS ---
MR head/brain wo/w con HISTORY: ITS.REASON: ARACHNOID CYST ORDERING PHYSICIAN: Megan Zimmerman MD PATIENT AGE: 68 years Comparison: 07/31/2018 TECHNIQUE: Standard multiplanar multiecho sequences are performed without and with gadolinium enhancement.. FINDINGS: Recent sinus CT showed a CSF collection in the supravermian region measuring 3 x 2 cm which was felt to represent an arachnoid cyst. The study is performed to confirm that finding. Pre and post enhanced images are performed. There is a partial empty sella turcica present incidentally noted. No midline shift, mass effect, intracranial hemorrhage, or hydrocephalus is evident. There is a fluid collection in the supravermian region posterior to the josé miguel and inferior to the splenium of the corpus callosum and posterior to the peroneal gland measuring 3 cm AP, 2.6 cm cephalad to caudad, and 2.4 cm transverse. This does not demonstrate contrast enhancement and is consistent with an arachnoid cyst. There is some local mass effect upon the superior aspect of the cerebellum causing anterior indentation of the superior and central aspect of the cerebellum as well as mild indentation upon the tectal plate. No hydrocephalus evident.. Cerebellar tonsils are unremarkable. No evidence of herniation. The cerebellopontine angles, cerebellum, and brainstem are unremarkable. No enhancing lesions are evident. There is normal mueller-white matter differentiation. No mastoid effusion or sinus air-fluid level. IMPRESSION: 1. 3 x 2.6 x 2.4 cm nonenhancing CSF collection in the supravermian region as described above consistent with an arachnoid cyst. This does have some local mass effect upon the superior aspect of the cerebellum and the tectal plate. There is however, no evidence of hydrocephalus. The cerebral aqueduct does not appear displaced or compressed. A large pineal cyst would be included in the differential diagnosis however, this does not appear to be the case as the pineal gland appears to be anterior and there is no perceptible wall of the cyst. Due to the local mass effect, would recommend a 6 month follow-up to confirm stability. 2. Partial empty sella turcica
== END ==
PROVIDERS: Family Provider Family Medicine; PCP Family Medicine; Visit Provider Otolaryngology
DX: G93.0 Cerebral cysts (principal)
CPT/HCPCS: 70553; A9576

== ENCOUNTER → 2018-11-10 07:29 | Outpatient (CLI) | payer MEDICARE, SELFPAY ==
[2018-11-10 09:08] LABS: Anion Gap 11.3 mEq/L (5-15); Blood Urea Nitrogen 15 mg/dL (7-18); Calcium 9.4 mg/dL (8.5-10.1); Carbon Dioxide 33 mmol/L (21.0-32.0); Chloride 101 mmol/L (98-107); Creatinine,Serum 1.13 mg/dL (0.70-1.30); Estimated Glomerular Filt Rate 65 ml/min (>60); GFR (African American) 79 ML/MIN (>60); Glucose 103 mg/dL (74-106); Potassium 4.3 mmoL/L (3.5-5.1); Sodium 141 mmol/L (136-145)
== END ==
PROVIDERS: Visit Provider Urology
DX: E78.5 Hyperlipidemia, unspecified (principal); I10 Essential (primary) hypertension; I51.9 Heart disease, unspecified; Q24.5 Malformation of coronary vessels; Z88.9 Allergy status to unspecified drugs, medicaments and biological substances
CPT/HCPCS: 36415; 80048

== ENCOUNTER → 2019-04-12 07:44 | Outpatient (CLI) | payer MEDICARE, SELFPAY ==
[2019-04-12 10:44] LABS: Blood Urea Nitrogen 13 mg/dL (7-18); Creatinine,Serum 1.02 mg/dL (0.70-1.30); Estimated Glomerular Filt Rate 73 ml/min (>60); GFR (African American) 88 ML/MIN (>60)
== END ==
PROVIDERS: Visit Provider Neurological Surgery
DX: Z01.818 Encounter for other preprocedural examination (principal)
CPT/HCPCS: 36415; 82565; 84520

== ENCOUNTER → 2019-04-15 08:02 | Outpatient (CLI) | payer MEDICARE, SELFPAY ==
--- NOTE | 2019-04-15 08:34 | MR_ITS ---
MR head/brain wo/w con HISTORY: ITS.REASON: ARACHNOID CYST ORDERING PHYSICIAN: Ibrahima Alexis PATIENT AGE: 69 years Comparison: 08/19/2018 TECHNIQUE: Standard multiplanar multiecho sequences are performed without and with gadolinium enhancement.. FINDINGS: No midline shift, mass effect, intracranial hemorrhage, or hydrocephalus. No evidence of acute infarction. No enhancing lesions. There is a partial L as a normal variant. The cerebellopontine angles, cerebellum, and brainstem are unremarkable. There is normal mueller-white matter differentiation with no abnormal white matter signal intensity apparent. There is a fluid collection in the supravermian region posterior to the josé miguel and inferior to the splenium of the corpus callosum and posterior to the pineal gland measuring 3 cm AP, 2.6 cm cephalad to caudad, and 2.4 cm transverse. This does not demonstrate contrast enhancement and is consistent with an arachnoid cyst. There is some local mass effect upon the superior aspect of the cerebellum causing inferior indentation of the superior and central aspect of the cerebellum as well as mild indentation upon the tectal plate. No hydrocephalus evident.. Cerebellar tonsils are unremarkable. No evidence of herniation. The cerebellopontine angles, cerebellum, and brainstem are unremarkable. No enhancing lesions are evident. There is normal mueller-white matter differentiation. No mastoid effusion or sinus air-fluid level. IMPRESSION: 1. Overall no significant change in the 3 x 2.6 x 2.4 cm nonenhancing CSF collection in the supravermian region as described above consistent with an arachnoid cyst. This does have some local mass effect upon the superior aspect of the cerebellum and the tectal plate. There is no evidence of hydrocephalus. 12 month follow-up suggested 2. Partial empty sella turcica
--- NOTE | 2019-04-15 09:22 | HMH.ITSHM ---
Current Home Medications as stated by this patient Abdiaziz Mims or healthcare representative. []LOSARTAN FUROSEMIDE OMEPRAZOLE ASPIRIN MULTIVITAMIN ACETAMINOPHEN ESOMEPRAZOLE ATORVASTATIN MONTELUKAST ATENOLOL LEVOTHYROXINE FLUTICASONE PROPIONATE
== END ==
PROVIDERS: PCP Family Medicine; Visit Provider Neurological Surgery
DX: G93.0 Cerebral cysts (principal)
CPT/HCPCS: 70553; A9576

== ENCOUNTER → 2019-06-21 14:21 | Outpatient (CLI) | payer MEDICARE, SELFPAY ==
--- NOTE | 2019-06-21 14:22 | CT_ITS ---
CT sinus wo con INDICATION: ITS.REASON: Sinusitis ORDERING PHYSICIAN: Alirio Hdez MD PATIENT AGE: 69 years COMPARISON: 07/31/2018 TECHNIQUE: Contrast Used:None Oral Contrast: Axial images were obtained. Sagittal and coronal reformatted images are reviewed as well. All CT scans at the facility use one or more dose reduction, viz: automated exposure control, ma/kV adjustment per patient size (including targeted exams where dose is matched to indication, i.e. head), or iterative reconstruction technique. FINDINGS: The frontal sinuses and ethmoid and sphenoid sinuses have an unremarkable appearance. There is minimal mucosal thickening along the medial aspect and floor of the left maxillary sinus. No sinus air-fluid level is evident. There is moderate leftward nasal septal deviation inferiorly causing narrowing of the nasal canal similar to the previous exam. There is also mild opacification of posterior left mastoid air cells unchanged. The middle ears are well aerated. The orbits have an unremarkable appearance. Supravermian arachnoid cyst once again noted not significant changed IMPRESSION: Overall no significant change in the appearance of the paranasal sinuses with minimal mucosal thickening of the left maxillary sinus, leftward nasal septal deviation, and minimal opacification of left mastoid sinus posteriorly IMPRESSION:
== END ==
PROVIDERS: PCP Family Medicine; Visit Provider Otolaryngology
DX: J32.9 Chronic sinusitis, unspecified (principal)
CPT/HCPCS: 70486

== ENCOUNTER → 2019-07-13 08:04 | Outpatient (POV) | payer MEDICARE, SELFPAY | PROVIDERS: Visit Provider Dermatology | DX: Z00.00 Encounter for general adult medical examination without abnormal findings (principal) ==

== ENCOUNTER → 2021-02-09 10:01 | Outpatient (CLI) | payer MEDICARE, SELFPAY ==
--- NOTE | 2021-02-09 10:02 | CA_ITS ---
APPROVED REPORT EXAM: Comprehensive 2D, Doppler, and color-flow Echocardiogram Network Management Specialist: Neha Pack RT(R) Ht: 5 ft 8 in Wt: 170lbs BSA: 1.91 BP: 141/58 mmHg Indications: SOA, abn EKG, HTN, hyperlipidemia, bradycardia, hypotension, GERD, myocardial bridge, DD 2D Dimensions LVOT 1.96 cm (M/F) 1.5-2.5 M-Mode Dimensions RVDd 2.81 cm (0.9-2.6) LA Diam 4.60 cm (1.9-4.0) LVDd 5.18 cm (3.5-5.7) Ao Diam 2.64 cm (2.0-3.7) LVDs 2.51 cm (3.5-5.7) IVSd 0.93 cm (0.6-1.1) PWd 0.64 cm (0.6-1.1) EF (Teich) 82.50% FS 51.50% EDV (Teich) 128.40 mL ESV (Teich) 22.50 mL LV Diastology E Decel Time 197.00 (160-240 msec) E/A Ratio 1.2 MED E' 11.30 (< 7 cm/sec) E'/MED E' Ratio 7.29 (>14) LAT E' 8.20 (<10 cm/sec) E/LAT E' Ratio 10.05 (>14) Mitral Valve MV E Max Juan. 82.00 (40-130 cm/s) MV A Velocity 68.00 (40-130 cm/s) E/A Ratio 1.21 MV Decel. Time 197.00 (160-240 ms) MV PHT 58.00 ms Tricuspid Valve TR P. Velocity 260.00 cm/s RAP Estimate 15.00 mmHg RVSP 42.00 mmHg Left Ventricle Left atrium is mildly enlarged, left ventricle is normal size, mild concentric left ventricular hypertrophy, visually estimated ejection fraction 55% with no regional wall motion abnormality, diastolic parameters are inconclusive. Right Ventricle Right atrium and right ventricle are normal size and contractility. Aortic Valve Aortic valve is minimally thickened and fibrosed, there is no aortic stenosis or aortic insufficiency. Mitral Valve Mitral valve leaflets are minimally thickened, there is mild mitral regurgitation. Tricuspid Valve Tricuspid valve grossly normal, there is mild tricuspid regurgitation, tricuspid regurgitation jet velocity is inadequate of the right ventricular systolic pressure. Pulmonic Valve Pulmonic valve is poorly visualized. Great Vessels Aortic root is normal size. Pericardium No significant pericardial effusion noted. Conclusion 1. Mildly enlarged left atrium, normal left ventricular size, mild concentric left ventricular hypertrophy, visually estimated ejection fraction 55% with no regional wall motion abnormality, diastolic parameters are inconclusive. 2. Mild mitral and tricuspid regurgitation. 3. No significant pericardial effusion noted. Electronically signed by : Matthew Vieira, 02/09/2021 15:25:12
== END ==
PROVIDERS: PCP Family Medicine; Visit Provider Nurse Practitioner Family
DX: E78.2 Mixed hyperlipidemia (principal); I10 Essential (primary) hypertension; I20.8 Other forms of angina pectoris; K21.9 Gastro-esophageal reflux disease without esophagitis; Q24.5 Malformation of coronary vessels; R00.1 Bradycardia, unspecified
CPT/HCPCS: 93306

== ENCOUNTER → 2021-11-15 13:39 | Outpatient (CLI) | payer MEDICARE, SELFPAY ==
[2021-11-15 14:16] LABS: Basophils # 0.1 K/mm3 (0-0.2); Eosinophils # 0.2 K/mm3 (0.0-0.4); Eosinophils % 1.5 % (0.1-12.0); Hematocrit 53.4 % (42.0-52.0); Hemoglobin 16.7 g/dL (14.1-18.0); Lymphocytes # 1.7 K/mm3 (0.7-4.5); Lymphocytes % 17.2 % (10-50); Mean Corpuscular HGB Conc 31.3 g/dL (31.8-35.4); Mean Corpuscular Hemoglobin 29.2 pg (27.0-31.2); Mean Corpuscular Volume 93.3 fl (80-94); Mean Platelet Volume 7.5 fl (7.4-10.4); Monocytes # 0.5 K/mm3 (0.1-1.0); Monocytes % 5.4 % (1.7-9.3); Neutrophils # 7.3 K/mm3 (1.8-7.8); Red Blood Count 5.73 M/mm3 (4.60-6.20); Red Cell Distribution Width 14.3 % (11.5-17.5); White Blood Count 9.8 K/mm3 (4.8-10.8)
[2021-11-15 15:08] LABS: Platelet Count 1401 K/mm3 (142-424)
== END ==
PROVIDERS: Visit Provider Internal Medicine Hematology & Oncology
DX: D75.838 Other thrombocytosis (principal)
CPT/HCPCS: 36415; 81270; 85025

== ENCOUNTER → 2021-12-05 10:57 | Outpatient (CLI) | payer MEDICARE, SELFPAY ==
[2021-12-05 12:42] LABS: Basophils # 0.1 K/mm3 (0-0.2); Basophils % 1.2 % (0.1-2.0); Eosinophils # 0.2 K/mm3 (0.0-0.4); Eosinophils % 2.4 % (0.1-12.0); Hematocrit 56.3 % (42.0-52.0); Hemoglobin 17.3 g/dL (14.1-18.0); Lymphocytes # 2.2 K/mm3 (0.7-4.5); Mean Corpuscular HGB Conc 30.7 g/dL (31.8-35.4); Mean Corpuscular Volume 94.7 fl (80-94); Mean Platelet Volume 8.1 fl (7.4-10.4); Monocytes # 0.5 K/mm3 (0.1-1.0); Monocytes % 5.9 % (1.7-9.3); Neutrophils # 5.8 K/mm3 (1.8-7.8); Neutrophils % 65.4 % (37.0-80.0); Red Blood Count 5.95 M/mm3 (4.60-6.20); Red Cell Distribution Width 15.3 % (11.5-17.5); White Blood Count 8.8 K/mm3 (4.8-10.8)
[2021-12-05 12:52] LABS: Platelet Count 1117 K/mm3 (142-424)
== END ==
PROVIDERS: PCP Family Medicine; Visit Provider Internal Medicine Hematology & Oncology
DX: D47.1 Chronic myeloproliferative disease (principal)
CPT/HCPCS: 36415; 81270; 85025

== ENCOUNTER 2021-12-06 11:12 | Outpatient (CLI) | payer MEDICARE, SELFPAY ==
[2021-12-06 12:00] VITALS: BP 162/89; PULSE 59; RESP 18; O2SAT 99
[2021-12-06 12:25] VITALS: BP 143/69; PULSE 61; RESP 18
== END 2021-12-06 12:25 | disposition home or self-care (01) ==
LOC: INF 11:14
PROVIDERS: PCP Family Medicine; Visit Provider Internal Medicine Medical Oncology
DX: D69.6 Thrombocytopenia, unspecified (principal)
CPT/HCPCS: 99195

== ENCOUNTER → 2021-12-19 11:59 | Outpatient (CLI) | payer MEDICARE, SELFPAY ==
[2021-12-19 12:27] LABS: Basophils # 0.2 K/mm3 (0-0.2); Basophils % 2.1 % (0.1-2.0); Eosinophils # 0.1 K/mm3 (0.0-0.4); Eosinophils % 1.7 % (0.1-12.0); Hematocrit 51.9 % (42.0-52.0); Hemoglobin 16.5 g/dL (14.1-18.0); Lymphocytes # 1.7 K/mm3 (0.7-4.5); Lymphocytes % 21.9 % (10-50); Mean Corpuscular HGB Conc 31.8 g/dL (31.8-35.4); Mean Corpuscular Hemoglobin 30.2 pg (27.0-31.2); Mean Corpuscular Volume 94.9 fl (80-94); Mean Platelet Volume 7.6 fl (7.4-10.4); Monocytes # 0.3 K/mm3 (0.1-1.0); Monocytes % 3.5 % (1.7-9.3); Neutrophils # 5.5 K/mm3 (1.8-7.8); Neutrophils % 70.9 % (37.0-80.0); Platelet Count 882 K/mm3 (142-424); Red Blood Count 5.47 M/mm3 (4.60-6.20); Red Cell Distribution Width 17.1 % (11.5-17.5); White Blood Count 7.8 K/mm3 (4.8-10.8)
[2021-12-19 13:34] LABS: Chloride 99 mmol/L (98-107); Potassium 4.2 mmoL/L (3.5-5.1); Sodium 140 mmol/L (136-145)
[2021-12-19 13:36] LABS: Alanine Aminotransferase 24 U/L (12-78); Aspartate Amino Transferase 34 U/L (17-59); Blood Urea Nitrogen 16 mg/dl (9-20); Estimated Glomerular Filt Rate 60 ml/min (>60); GFR (African American) 73 ML/MIN (>60)
[2021-12-19 13:37] LABS: Albumin Level 4.7 g/dl (3.5-5.0); Albumin/Globulin Ratio 1.7 (1.1-1.8); Alkaline Phosphatase 56 U/L (38-126); Anion Gap 15.2 mEq/L (5-15); Bilirubin,Total 0.7 mg/dl (0.2-1.3); Calcium 9.1 mg/dl (8.4-10.2); Carbon Dioxide 30 mmol/L (22.0-30.0); Globulin 2.8 g/dL (1.3-3.2); Glucose 170 mg/dl (74-100); Total Protein,Serum 7.5 g/dl (6.3-8.2)
== END ==
PROVIDERS: PCP Family Medicine; Visit Provider Internal Medicine Medical Oncology
DX: D69.49 Other primary thrombocytopenia (principal)
CPT/HCPCS: 36415; 80053; 85025

== ENCOUNTER 2021-12-20 09:58 | Outpatient (CLI) | payer MEDICARE, SELFPAY | END 2021-12-20 11:20 | disposition home or self-care (01) | LOC: INF 10:00 | PROVIDERS: PCP Family Medicine; Visit Provider Internal Medicine Medical Oncology | DX: D69.49 Other primary thrombocytopenia (principal) | CPT/HCPCS: 99195 ==

== ENCOUNTER → 2022-01-02 11:31 | Outpatient (CLI) | payer MEDICARE, SELFPAY ==
[2022-01-02 14:29] LABS: Basophils # 0.1 K/mm3 (0-0.2); Basophils % 1.5 % (0.1-2.0); Eosinophils # 0.1 K/mm3 (0.0-0.4); Eosinophils % 1.1 % (0.1-12.0); Hematocrit 52.4 % (42.0-52.0); Hemoglobin 16.5 g/dL (14.1-18.0); Lymphocytes # 1.9 K/mm3 (0.7-4.5); Lymphocytes % 26.8 % (10-50); Mean Corpuscular HGB Conc 31.5 g/dL (31.8-35.4); Mean Corpuscular Hemoglobin 31.4 pg (27.0-31.2); Mean Corpuscular Volume 99.8 fl (80-94); Mean Platelet Volume 8.4 fl (7.4-10.4); Monocytes # 0.5 K/mm3 (0.1-1.0); Monocytes % 6.6 % (1.7-9.3); Neutrophils # 4.6 K/mm3 (1.8-7.8); Neutrophils % 64.1 % (37.0-80.0); Platelet Count 834 K/mm3 (142-424); Red Blood Count 5.25 M/mm3 (4.60-6.20); Red Cell Distribution Width 19.9 % (11.5-17.5); White Blood Count 7.2 K/mm3 (4.8-10.8)
[2022-01-02 14:32] LABS: Chloride 97 mmol/L (98-107); Potassium 4.2 mmoL/L (3.5-5.1); Sodium 137 mmol/L (136-145)
[2022-01-02 14:35] LABS: Alanine Aminotransferase 26 U/L (12-78); Albumin Level 4.7 g/dl (3.5-5.0); Albumin/Globulin Ratio 1.8 (1.1-1.8); Alkaline Phosphatase 60 U/L (38-126); Anion Gap 13.2 mEq/L (5-15); Aspartate Amino Transferase 36 U/L (17-59); Bilirubin,Total 0.9 mg/dl (0.2-1.3); Blood Urea Nitrogen 14 mg/dl (9-20); Carbon Dioxide 31 mmol/L (22.0-30.0); Estimated Glomerular Filt Rate 66 ml/min (>60); GFR (African American) 80 ML/MIN (>60); Globulin 2.6 g/dL (1.3-3.2); Total Protein,Serum 7.3 g/dl (6.3-8.2)
[2022-01-02 14:36] LABS: Calcium 8.8 mg/dl (8.4-10.2); Glucose 91 mg/dl (74-100)
== END ==
PROVIDERS: PCP Family Medicine; Visit Provider Internal Medicine Medical Oncology
DX: D69.6 Thrombocytopenia, unspecified (principal)
CPT/HCPCS: 36415; 80053; 85025

== ENCOUNTER 2022-01-03 10:53 | Outpatient (CLI) | payer MEDICARE, SELFPAY ==
[2022-01-03 11:10] VITALS: BP 135/80; PULSE 70; RESP 18; TEMP 36.7; O2SAT 98
[2022-01-03 11:51] VITALS: BP 135/78; PULSE 70; RESP 16; TEMP 36.7; O2SAT 98
== END 2022-01-03 11:55 | disposition home or self-care (01) ==
LOC: INF 10:53
PROVIDERS: PCP Family Medicine; Visit Provider Internal Medicine Medical Oncology
DX: D69.6 Thrombocytopenia, unspecified (principal)
CPT/HCPCS: 99195

== ENCOUNTER → 2022-01-10 11:09 | Outpatient (CLI) | payer MEDICARE, SELFPAY ==
[2022-01-10 11:59] LABS: Basophils # 0.1 K/mm3 (0-0.2); Basophils % 1.1 % (0.1-2.0); Eosinophils # 0.1 K/mm3 (0.0-0.4); Eosinophils % 1.7 % (0.1-12.0); Hematocrit 47.5 % (42.0-52.0); Hemoglobin 15.6 g/dL (14.1-18.0); Lymphocytes # 2.1 K/mm3 (0.7-4.5); Lymphocytes % 25.5 % (10-50); Mean Corpuscular HGB Conc 32.9 g/dL (31.8-35.4); Mean Corpuscular Hemoglobin 31.6 pg (27.0-31.2); Mean Corpuscular Volume 95.8 fl (80-94); Mean Platelet Volume 7.2 fl (7.4-10.4); Monocytes # 0.6 K/mm3 (0.1-1.0); Monocytes % 7.1 % (1.7-9.3); Neutrophils # 5.3 K/mm3 (1.8-7.8); Neutrophils % 64.5 % (37.0-80.0); Platelet Count 766 K/mm3 (142-424); Red Blood Count 4.95 M/mm3 (4.60-6.20); Red Cell Distribution Width 19.3 % (11.5-17.5); White Blood Count 8.2 K/mm3 (4.8-10.8)
[2022-01-10 12:29] LABS: Chloride 99 mmol/L (98-107); Sodium 138 mmol/L (136-145)
[2022-01-10 12:30] LABS: Potassium 3.7 mmoL/L (3.5-5.1)
[2022-01-10 12:32] LABS: Alanine Aminotransferase 27 U/L (12-78); Alkaline Phosphatase 57 U/L (38-126); Anion Gap 10.7 mEq/L (5-15); Aspartate Amino Transferase 35 U/L (17-59); Bilirubin,Total 0.6 mg/dl (0.2-1.3); Blood Urea Nitrogen 12 mg/dl (9-20); Carbon Dioxide 32 mmol/L (22.0-30.0); Estimated Glomerular Filt Rate 66 ml/min (>60); GFR (African American) 80 ML/MIN (>60)
[2022-01-10 12:33] LABS: Albumin Level 4.3 g/dl (3.5-5.0); Albumin/Globulin Ratio 1.7 (1.1-1.8); Calcium 8.8 mg/dl (8.4-10.2); Globulin 2.6 g/dL (1.3-3.2); Glucose 101 mg/dl (74-100); Total Protein,Serum 6.9 g/dl (6.3-8.2)
== END ==
PROVIDERS: Visit Provider Internal Medicine Medical Oncology
DX: D69.6 Thrombocytopenia, unspecified (principal)
CPT/HCPCS: 36415; 80053; 85025

== ENCOUNTER 2022-01-11 08:15 | Outpatient (CLI) | payer MEDICARE, SELFPAY ==
[2022-01-11 10:22] VITALS: BP 132/64; PULSE 60; RESP 16; TEMP 36.3; O2SAT 98
[2022-01-11 10:35] VITALS: BP 116/83; PULSE 60; RESP 18; TEMP 36.3; O2SAT 98
== END 2022-01-11 11:03 | disposition home or self-care (01) ==
LOC: INF 08:16
PROVIDERS: Visit Provider Internal Medicine Medical Oncology
DX: D69.6 Thrombocytopenia, unspecified (principal)
CPT/HCPCS: 99195

== ENCOUNTER → 2022-01-23 09:42 | Outpatient (CLI) | payer MEDICARE, SELFPAY ==
[2022-01-23 10:23] LABS: Basophils # 0.1 K/mm3 (0-0.2); Basophils % 1.3 % (0.1-2.0); Eosinophils # 0.2 K/mm3 (0.0-0.4); Eosinophils % 1.6 % (0.1-12.0); Hematocrit 47.1 % (42.0-52.0); Lymphocytes # 2.1 K/mm3 (0.7-4.5); Lymphocytes % 20.5 % (10-50); Mean Corpuscular HGB Conc 31.8 g/dL (31.8-35.4); Mean Corpuscular Hemoglobin 31.8 pg (27.0-31.2); Mean Corpuscular Volume 100.2 fl (80-94); Mean Platelet Volume 8.1 fl (7.4-10.4); Monocytes # 0.5 K/mm3 (0.1-1.0); Monocytes % 4.6 % (1.7-9.3); Neutrophils # 7.3 K/mm3 (1.8-7.8); Platelet Count 957 K/mm3 (142-424); White Blood Count 10.1 K/mm3 (4.8-10.8)
[2022-01-23 11:30] LABS: Chloride 101 mmol/L (98-107); Potassium 3.9 mmoL/L (3.5-5.1); Sodium 137 mmol/L (136-145)
[2022-01-23 11:33] LABS: Alanine Aminotransferase 29 U/L (12-78); Alkaline Phosphatase 66 U/L (38-126); Anion Gap 6.9 mEq/L (5-15); Aspartate Amino Transferase 50 U/L (17-59); Bilirubin,Total 0.6 mg/dl (0.2-1.3); Blood Urea Nitrogen 14 mg/dl (9-20); Calcium 8.3 mg/dl (8.4-10.2); Carbon Dioxide 33 mmol/L (22.0-30.0); Estimated Glomerular Filt Rate 66 ml/min (>60); GFR (African American) 80 ML/MIN (>60); Glucose 101 mg/dl (74-100); Total Protein,Serum 6.9 g/dl (6.3-8.2)
[2022-01-23 11:51] LABS: Albumin Level 4.2 g/dl (3.5-5.0); Albumin/Globulin Ratio 1.6 (1.1-1.8); Globulin 2.7 g/dL (1.3-3.2)
== END ==
PROVIDERS: Visit Provider Internal Medicine Medical Oncology
DX: D69.6 Thrombocytopenia, unspecified (principal)
CPT/HCPCS: 36415; 80053; 85025

== ENCOUNTER 2022-01-24 07:55 | Outpatient (CLI) | payer MEDICARE, SELFPAY ==
[2022-01-24 11:10] VITALS: BP 122/60; PULSE 60; RESP 18; O2SAT 99
[2022-01-24 11:35] VITALS: BP 115/76; PULSE 60; RESP 18; O2SAT 99
== END 2022-01-24 11:35 | disposition home or self-care (01) ==
LOC: INF 07:55
PROVIDERS: Visit Provider Internal Medicine Medical Oncology
DX: D69.6 Thrombocytopenia, unspecified (principal)
CPT/HCPCS: 99195

== ENCOUNTER → 2022-02-07 14:31 | Outpatient (CLI) | payer MEDICARE, SELFPAY ==
[2022-02-07 15:02] LABS: Basophils # 0.1 K/mm3 (0-0.2); Basophils % 1.7 % (0.1-2.0); Eosinophils # 0.2 K/mm3 (0.0-0.4); Eosinophils % 2.1 % (0.1-12.0); Hematocrit 46.9 % (42.0-52.0); Hemoglobin 14.7 g/dL (14.1-18.0); Lymphocytes # 1.6 K/mm3 (0.7-4.5); Lymphocytes % 22.8 % (10-50); Mean Corpuscular HGB Conc 31.3 g/dL (31.8-35.4); Mean Corpuscular Hemoglobin 31.4 pg (27.0-31.2); Mean Corpuscular Volume 100.5 fl (80-94); Mean Platelet Volume 7.9 fl (7.4-10.4); Monocytes # 0.3 K/mm3 (0.1-1.0); Monocytes % 4.1 % (1.7-9.3); Neutrophils # 4.9 K/mm3 (1.8-7.8); Neutrophils % 69.2 % (37.0-80.0); Platelet Count 788 K/mm3 (142-424); Red Blood Count 4.66 M/mm3 (4.60-6.20); Red Cell Distribution Width 17.6 % (11.5-17.5); White Blood Count 7.1 K/mm3 (4.8-10.8)
[2022-02-07 16:47] LABS: Alanine Aminotransferase 30 U/L (12-78); Albumin Level 4.4 g/dl (3.5-5.0); Albumin/Globulin Ratio 1.8 (1.1-1.8); Alkaline Phosphatase 58 U/L (38-126); Anion Gap 11.3 mEq/L (5-15); Aspartate Amino Transferase 34 U/L (17-59); Bilirubin,Total 0.8 mg/dl (0.2-1.3); Blood Urea Nitrogen 16 mg/dl (9-20); Calcium 9.2 mg/dl (8.4-10.2); Carbon Dioxide 31 mmol/L (22.0-30.0); Chloride 101 mmol/L (98-107); Estimated Glomerular Filt Rate 74 ml/min (>60); GFR (African American) 90 ML/MIN (>60); Globulin 2.5 g/dL (1.3-3.2); Glucose 165 mg/dl (74-100); Potassium 4.3 mmoL/L (3.5-5.1); Sodium 139 mmol/L (136-145); Total Protein,Serum 6.9 g/dl (6.3-8.2)
== END ==
PROVIDERS: Visit Provider Internal Medicine Medical Oncology
DX: D47.3 Essential (hemorrhagic) thrombocythemia (principal)
CPT/HCPCS: 36415; 80053; 85025

== ENCOUNTER 2022-02-08 12:01 | Outpatient (CLI) | payer MEDICARE, SELFPAY ==
[2022-02-08 12:10] VITALS: BP 131/67; PULSE 59; RESP 18
[2022-02-08 12:25] VITALS: BP 143/64; PULSE 59; RESP 18
== END 2022-02-08 12:25 | disposition home health service (06) ==
LOC: INF 12:02
PROVIDERS: Visit Provider Internal Medicine Medical Oncology
DX: D47.3 Essential (hemorrhagic) thrombocythemia (principal)
CPT/HCPCS: 99195

== ENCOUNTER → 2022-02-21 14:49 | Outpatient (CLI) | payer MEDICARE, SELFPAY ==
[2022-02-21 16:10] LABS: Basophils # 0.1 K/mm3 (0-0.2); Basophils % 1.3 % (0.1-2.0); Eosinophils # 0.1 K/mm3 (0.0-0.4); Eosinophils % 0.9 % (0.1-12.0); Hemoglobin 13.4 g/dL (14.1-18.0); Lymphocytes # 1.4 K/mm3 (0.7-4.5); Lymphocytes % 18.6 % (10-50); Mean Corpuscular HGB Conc 31.9 g/dL (31.8-35.4); Mean Corpuscular Hemoglobin 31.3 pg (27.0-31.2); Mean Corpuscular Volume 98.3 fl (80-94); Mean Platelet Volume 8.7 fl (7.4-10.4); Monocytes # 0.5 K/mm3 (0.1-1.0); Monocytes % 6.7 % (1.7-9.3); Neutrophils # 5.6 K/mm3 (1.8-7.8); Neutrophils % 72.5 % (37.0-80.0); Platelet Count 937 K/mm3 (142-424); Red Blood Count 4.28 M/mm3 (4.60-6.20); Red Cell Distribution Width 16.5 % (11.5-17.5); White Blood Count 7.7 K/mm3 (4.8-10.8)
[2022-02-21 16:31] LABS: Chloride 103 mmol/L (98-107); Potassium 4.2 mmoL/L (3.5-5.1); Sodium 139 mmol/L (136-145)
[2022-02-21 16:33] LABS: Alanine Aminotransferase 27 U/L (12-78); Aspartate Amino Transferase 36 U/L (17-59); Blood Urea Nitrogen 20 mg/dl (9-20); Estimated Glomerular Filt Rate 74 ml/min (>60); GFR (African American) 90 ML/MIN (>60)
[2022-02-21 16:34] LABS: Albumin Level 4.3 g/dl (3.5-5.0); Albumin/Globulin Ratio 1.7 (1.1-1.8); Alkaline Phosphatase 60 U/L (38-126); Anion Gap 11.2 mEq/L (5-15); Bilirubin,Total 0.7 mg/dl (0.2-1.3); Calcium 8.8 mg/dl (8.4-10.2); Carbon Dioxide 29 mmol/L (22.0-30.0); Globulin 2.5 g/dL (1.3-3.2); Glucose 93 mg/dl (74-100); Total Protein,Serum 6.8 g/dl (6.3-8.2)
== END ==
PROVIDERS: Visit Provider Internal Medicine Medical Oncology
DX: D69.6 Thrombocytopenia, unspecified (principal)
CPT/HCPCS: 36415; 80053; 85025

== ENCOUNTER → 2022-03-07 15:13 | Outpatient (CLI) | payer MEDICARE, SELFPAY ==
[2022-03-07 16:00] LABS: Basophils # 0.1 K/mm3 (0-0.2); Basophils % 1.4 % (0.1-2.0); Eosinophils # 0.1 K/mm3 (0.0-0.4); Eosinophils % 1.1 % (0.1-12.0); Hematocrit 42.3 % (42.0-52.0); Hemoglobin 13.7 g/dL (14.1-18.0); Lymphocytes # 1.4 K/mm3 (0.7-4.5); Lymphocytes % 18.2 % (10-50); Mean Corpuscular HGB Conc 32.4 g/dL (31.8-35.4); Mean Corpuscular Hemoglobin 31.5 pg (27.0-31.2); Mean Corpuscular Volume 97.1 fl (80-94); Mean Platelet Volume 8.3 fl (7.4-10.4); Monocytes # 0.4 K/mm3 (0.1-1.0); Monocytes % 5.1 % (1.7-9.3); Neutrophils # 5.7 K/mm3 (1.8-7.8); Neutrophils % 74.1 % (37.0-80.0); Platelet Count 794 K/mm3 (142-424); Red Blood Count 4.35 M/mm3 (4.60-6.20); Red Cell Distribution Width 15.5 % (11.5-17.5); White Blood Count 7.8 K/mm3 (4.8-10.8)
[2022-03-07 16:50] LABS: Chloride 102 mmol/L (98-107); Potassium 4.1 mmoL/L (3.5-5.1); Sodium 138 mmol/L (136-145)
[2022-03-07 16:52] LABS: Blood Urea Nitrogen 21 mg/dl (9-20); Estimated Glomerular Filt Rate 60 ml/min (>60); GFR (African American) 73 ML/MIN (>60)
[2022-03-07 16:53] LABS: Alanine Aminotransferase 26 U/L (12-78); Albumin Level 4.2 g/dl (3.5-5.0); Albumin/Globulin Ratio 1.7 (1.1-1.8); Alkaline Phosphatase 62 U/L (38-126); Anion Gap 10.1 mEq/L (5-15); Aspartate Amino Transferase 36 U/L (17-59); Bilirubin,Total 0.5 mg/dl (0.2-1.3); Calcium 8.5 mg/dl (8.4-10.2); Carbon Dioxide 30 mmol/L (22.0-30.0); Globulin 2.5 g/dL (1.3-3.2); Glucose 87 mg/dl (74-100); Total Protein,Serum 6.7 g/dl (6.3-8.2)
== END ==
PROVIDERS: PCP Family Medicine; Visit Provider Internal Medicine Medical Oncology
DX: D69.6 Thrombocytopenia, unspecified (principal)
CPT/HCPCS: 36415; 80053; 85025

== ENCOUNTER → 2022-03-21 10:48 | Outpatient (CLI) | payer MEDICARE, SELFPAY ==
[2022-03-21 11:51] LABS: Basophils # 0.1 K/mm3 (0-0.2); Basophils % 0.8 % (0.1-2.0); Eosinophils # 0.2 K/mm3 (0.0-0.4); Eosinophils % 2.1 % (0.1-12.0); Hematocrit 45.9 % (42.0-52.0); Hemoglobin 14.4 g/dL (14.1-18.0); Lymphocytes # 1.9 K/mm3 (0.7-4.5); Lymphocytes % 25.4 % (10-50); Mean Corpuscular HGB Conc 31.5 g/dL (31.8-35.4); Mean Corpuscular Hemoglobin 29.8 pg (27.0-31.2); Mean Corpuscular Volume 94.6 fl (80-94); Mean Platelet Volume 7.5 fl (7.4-10.4); Monocytes # 0.5 K/mm3 (0.1-1.0); Monocytes % 7.3 % (1.7-9.3); Neutrophils # 4.7 K/mm3 (1.8-7.8); Neutrophils % 64.4 % (37.0-80.0); Platelet Count 874 K/mm3 (142-424); Red Blood Count 4.85 M/mm3 (4.60-6.20); Red Cell Distribution Width 14.2 % (11.5-17.5); White Blood Count 7.4 K/mm3 (4.8-10.8)
[2022-03-21 12:18] LABS: Chloride 100 mmol/L (98-107); Potassium 4.3 mmoL/L (3.5-5.1); Sodium 140 mmol/L (136-145)
[2022-03-21 12:20] LABS: Alanine Aminotransferase 31 U/L (12-78); Aspartate Amino Transferase 35 U/L (17-59); Blood Urea Nitrogen 13 mg/dl (9-20); Estimated Glomerular Filt Rate 74 ml/min (>60); GFR (African American) 90 ML/MIN (>60)
[2022-03-21 12:21] LABS: Albumin Level 4.2 g/dl (3.5-5.0); Albumin/Globulin Ratio 1.7 (1.1-1.8); Alkaline Phosphatase 85 U/L (38-126); Anion Gap 12.3 mEq/L (5-15); Bilirubin,Total 0.6 mg/dl (0.2-1.3); Calcium 9.6 mg/dl (8.4-10.2); Carbon Dioxide 32 mmol/L (22.0-30.0); Globulin 2.5 g/dL (1.3-3.2); Glucose 119 mg/dl (74-100); Total Protein,Serum 6.7 g/dl (6.3-8.2)
== END ==
PROVIDERS: Visit Provider Internal Medicine Medical Oncology
DX: D69.6 Thrombocytopenia, unspecified (principal)
CPT/HCPCS: 36415; 80053; 85025

== ENCOUNTER → 2022-04-04 15:07 | Outpatient (CLI) | payer MEDICARE, SELFPAY ==
[2022-04-04 16:34] LABS: Basophils # 0.1 K/mm3 (0-0.2); Basophils % 1.2 % (0.1-2.0); Eosinophils # 0.1 K/mm3 (0.0-0.4); Eosinophils % 1.6 % (0.1-12.0); Hematocrit 44.2 % (42.0-52.0); Hemoglobin 14.3 g/dL (14.1-18.0); Lymphocytes # 1.7 K/mm3 (0.7-4.5); Mean Corpuscular HGB Conc 32.3 g/dL (31.8-35.4); Mean Corpuscular Hemoglobin 30.5 pg (27.0-31.2); Mean Corpuscular Volume 94.5 fl (80-94); Mean Platelet Volume 8.5 fl (7.4-10.4); Monocytes # 0.6 K/mm3 (0.1-1.0); Monocytes % 6.9 % (1.7-9.3); Neutrophils # 5.8 K/mm3 (1.8-7.8); Neutrophils % 70.3 % (37.0-80.0); Platelet Count 782 K/mm3 (142-424); Red Blood Count 4.68 M/mm3 (4.60-6.20); White Blood Count 8.3 K/mm3 (4.8-10.8)
[2022-04-04 17:07] LABS: Alanine Aminotransferase 28 U/L (12-78); Albumin Level 4.5 g/dl (3.5-5.0); Albumin/Globulin Ratio 1.8 (1.1-1.8); Alkaline Phosphatase 68 U/L (38-126); Anion Gap 11.2 mEq/L (5-15); Aspartate Amino Transferase 41 U/L (17-59); Bilirubin,Total 0.6 mg/dl (0.2-1.3); Blood Urea Nitrogen 16 mg/dl (9-20); Calcium 9.5 mg/dl (8.4-10.2); Carbon Dioxide 33 mmol/L (22.0-30.0); Chloride 99 mmol/L (98-107); Estimated Glomerular Filt Rate 66 ml/min (>60); GFR (African American) 80 ML/MIN (>60); Globulin 2.5 g/dL (1.3-3.2); Glucose 94 mg/dl (74-100); Potassium 4.2 mmoL/L (3.5-5.1); Sodium 139 mmol/L (136-145)
== END ==
PROVIDERS: PCP Family Medicine; Visit Provider Internal Medicine Medical Oncology
DX: D69.6 Thrombocytopenia, unspecified (principal)
CPT/HCPCS: 36415; 80053; 85025

== ENCOUNTER → 2022-05-09 10:27 | Outpatient (CLI) | payer MEDICARE, SELFPAY ==
[2022-05-09 11:03] LABS: Basophils # 0.1 K/mm3 (0-0.2); Basophils % 1.4 % (0.1-2.0); Eosinophils # 0.1 K/mm3 (0.0-0.4); Eosinophils % 1.6 % (0.1-12.0); Hematocrit 46.8 % (42.0-52.0); Hemoglobin 14.8 g/dL (14.1-18.0); Lymphocytes # 1.4 K/mm3 (0.7-4.5); Lymphocytes % 18.8 % (10-50); Mean Corpuscular HGB Conc 31.6 g/dL (31.8-35.4); Mean Corpuscular Hemoglobin 28.5 pg (27.0-31.2); Mean Corpuscular Volume 89.9 fl (80-94); Mean Platelet Volume 8.2 fl (7.4-10.4); Monocytes # 0.4 K/mm3 (0.1-1.0); Monocytes % 5.8 % (1.7-9.3); Neutrophils # 5.3 K/mm3 (1.8-7.8); Neutrophils % 72.5 % (37.0-80.0); Platelet Count 652 K/mm3 (142-424); Red Cell Distribution Width 14.9 % (11.5-17.5); White Blood Count 7.3 K/mm3 (4.8-10.8)
[2022-05-09 11:31] LABS: Chloride 102 mmol/L (98-107); Sodium 139 mmol/L (136-145)
[2022-05-09 11:33] LABS: Blood Urea Nitrogen 13 mg/dl (9-20); Estimated Glomerular Filt Rate 74 ml/min (>60); GFR (African American) 89 ML/MIN (>60)
[2022-05-09 11:34] LABS: Alanine Aminotransferase 29 U/L (12-78); Albumin Level 4.3 g/dl (3.5-5.0); Albumin/Globulin Ratio 1.7 (1.1-1.8); Alkaline Phosphatase 64 U/L (38-126); Aspartate Amino Transferase 37 U/L (17-59); Bilirubin,Total 0.4 mg/dl (0.2-1.3); Calcium 9.6 mg/dl (8.4-10.2); Carbon Dioxide 31 mmol/L (22.0-30.0); Globulin 2.6 g/dL (1.3-3.2); Glucose 132 mg/dl (74-100); Total Protein,Serum 6.9 g/dl (6.3-8.2)
== END ==
PROVIDERS: PCP Family Medicine; Visit Provider Internal Medicine Medical Oncology
DX: D69.6 Thrombocytopenia, unspecified (principal)
CPT/HCPCS: 36415; 80053; 85025

== ENCOUNTER → 2022-06-05 12:53 | Outpatient (CLI) | payer MEDICARE, SELFPAY ==
[2022-06-05 13:33] LABS: Basophils # 0.2 K/mm3 (0-0.2); Basophils % 3.2 % (0.1-2.0); Eosinophils # 0.1 K/mm3 (0.0-0.4); Eosinophils % 1.7 % (0.1-12.0); Hematocrit 44.4 % (42.0-52.0); Hemoglobin 14.4 g/dL (14.1-18.0); Lymphocytes # 1.4 K/mm3 (0.7-4.5); Lymphocytes % 19.8 % (10-50); Mean Corpuscular HGB Conc 32.5 g/dL (31.8-35.4); Mean Corpuscular Hemoglobin 29.6 pg (27.0-31.2); Mean Platelet Volume 8.2 fl (7.4-10.4); Monocytes # 0.5 K/mm3 (0.1-1.0); Monocytes % 6.4 % (1.7-9.3); Neutrophils # 4.9 K/mm3 (1.8-7.8); Neutrophils % 68.8 % (37.0-80.0); Platelet Count 731 K/mm3 (142-424); Red Blood Count 4.88 M/mm3 (4.60-6.20); Red Cell Distribution Width 16.1 % (11.5-17.5); White Blood Count 7.2 K/mm3 (4.8-10.8)
[2022-06-05 14:07] LABS: Alanine Aminotransferase 27 U/L (12-78); Albumin Level 4.1 g/dl (3.5-5.0); Albumin/Globulin Ratio 1.6 (1.1-1.8); Alkaline Phosphatase 69 U/L (38-126); Anion Gap 11.4 mEq/L (5-15); Aspartate Amino Transferase 38 U/L (17-59); Bilirubin,Total 0.6 mg/dl (0.2-1.3); Blood Urea Nitrogen 14 mg/dl (9-20); Calcium 9.3 mg/dl (8.4-10.2); Carbon Dioxide 32 mmol/L (22.0-30.0); Chloride 101 mmol/L (98-107); Estimated Glomerular Filt Rate 74 ml/min (>60); GFR (African American) 89 ML/MIN (>60); Globulin 2.6 g/dL (1.3-3.2); Glucose 103 mg/dl (74-100); Potassium 4.4 mmoL/L (3.5-5.1); Sodium 140 mmol/L (136-145); Total Protein,Serum 6.7 g/dl (6.3-8.2)
== END ==
PROVIDERS: PCP Family Medicine; Visit Provider Internal Medicine Medical Oncology
DX: D69.6 Thrombocytopenia, unspecified (principal)
CPT/HCPCS: 36415; 80053; 85025

== ENCOUNTER → 2022-07-04 11:37 | Outpatient (CLI) | payer MEDICARE, SELFPAY ==
[2022-07-04 12:19] LABS: Basophils # 0.1 K/mm3 (0-0.2); Eosinophils # 0.2 K/mm3 (0.0-0.4); Eosinophils % 2.5 % (0.1-12.0); Hematocrit 48.6 % (42.0-52.0); Hemoglobin 14.6 g/dL (14.1-18.0); Lymphocytes # 1.5 K/mm3 (0.7-4.5); Lymphocytes % 19.2 % (10-50); Mean Corpuscular HGB Conc 30.1 g/dL (31.8-35.4); Mean Corpuscular Hemoglobin 27.8 pg (27.0-31.2); Mean Corpuscular Volume 92.4 fl (80-94); Mean Platelet Volume 7.8 fl (7.4-10.4); Monocytes # 0.4 K/mm3 (0.1-1.0); Monocytes % 5.1 % (1.7-9.3); Neutrophils # 5.6 K/mm3 (1.8-7.8); Neutrophils % 72.1 % (37.0-80.0); Platelet Count 851 K/mm3 (142-424); Red Blood Count 5.26 M/mm3 (4.60-6.20); Red Cell Distribution Width 16.9 % (11.5-17.5); White Blood Count 7.8 K/mm3 (4.8-10.8)
[2022-07-04 12:39] LABS: Alanine Aminotransferase 28 U/L (12-78); Albumin Level 4.2 g/dl (3.5-5.0); Albumin/Globulin Ratio 1.6 (1.1-1.8); Alkaline Phosphatase 93 U/L (38-126); Aspartate Amino Transferase 35 U/L (17-59); Bilirubin,Total 0.4 mg/dl (0.2-1.3); Blood Urea Nitrogen 12 mg/dl (9-20); Calcium 9.4 mg/dl (8.4-10.2); Carbon Dioxide 30 mmol/L (22.0-30.0); Chloride 104 mmol/L (98-107); Estimated Glomerular Filt Rate 74 ml/min (>60); GFR (African American) 89 ML/MIN (>60); Globulin 2.7 g/dL (1.3-3.2); Glucose 118 mg/dl (74-100); Sodium 141 mmol/L (136-145); Total Protein,Serum 6.9 g/dl (6.3-8.2)
== END ==
PROVIDERS: PCP Family Medicine; Visit Provider Internal Medicine Medical Oncology
DX: D69.6 Thrombocytopenia, unspecified (principal)
CPT/HCPCS: 36415; 80053; 85025

== ENCOUNTER → 2022-07-18 07:31 | Outpatient (CLI) | payer MEDICARE, SELFPAY ==
[2022-07-18 08:35] LABS: Basophils # 0.2 K/mm3 (0-0.2); Eosinophils # 0.2 K/mm3 (0.0-0.4); Eosinophils % 2.8 % (0.1-12.0); Hematocrit 48.7 % (42.0-52.0); Hemoglobin 14.6 g/dL (14.1-18.0); Lymphocytes # 1.6 K/mm3 (0.7-4.5); Lymphocytes % 21.1 % (10-50); Mean Corpuscular HGB Conc 29.9 g/dL (31.8-35.4); Mean Corpuscular Hemoglobin 28.2 pg (27.0-31.2); Mean Corpuscular Volume 94.4 fl (80-94); Mean Platelet Volume 7.8 fl (7.4-10.4); Monocytes # 0.4 K/mm3 (0.1-1.0); Monocytes % 5.6 % (1.7-9.3); Neutrophils # 5.2 K/mm3 (1.8-7.8); Neutrophils % 68.4 % (37.0-80.0); Platelet Count 835 K/mm3 (142-424); Red Blood Count 5.16 M/mm3 (4.60-6.20); Red Cell Distribution Width 17.6 % (11.5-17.5); White Blood Count 7.7 K/mm3 (4.8-10.8)
[2022-07-18 09:23] LABS: Alanine Aminotransferase 25 U/L (12-78); Albumin/Globulin Ratio 1.5 (1.1-1.8); Alkaline Phosphatase 76 U/L (38-126); Anion Gap 10.8 mEq/L (5-15); Aspartate Amino Transferase 38 U/L (17-59); Bilirubin,Total 0.3 mg/dl (0.2-1.3); Blood Urea Nitrogen 16 mg/dl (9-20); Calcium 9.3 mg/dl (8.4-10.2); Carbon Dioxide 33 mmol/L (22.0-30.0); Chloride 101 mmol/L (98-107); Estimated Glomerular Filt Rate 74 ml/min (>60); GFR (African American) 89 ML/MIN (>60); Globulin 2.6 g/dL (1.3-3.2); Glucose 100 mg/dl (74-100); Potassium 3.8 mmoL/L (3.5-5.1); Sodium 141 mmol/L (136-145); Total Protein,Serum 6.6 g/dl (6.3-8.2)
== END ==
PROVIDERS: PCP Family Medicine; Visit Provider Internal Medicine Medical Oncology
DX: D69.6 Thrombocytopenia, unspecified (principal)
CPT/HCPCS: 36415; 80053; 85025

== ENCOUNTER → 2022-08-09 08:15 | Outpatient (CLI) | payer MEDICARE, SELFPAY ==
[2022-08-09 09:08] LABS: Basophils # 0.1 K/mm3 (0-0.2); Basophils % 1.1 % (0.1-2.0); Eosinophils # 0.2 K/mm3 (0.0-0.4); Eosinophils % 2.2 % (0.1-12.0); Hematocrit 45.8 % (42.0-52.0); Lymphocytes # 1.5 K/mm3 (0.7-4.5); Lymphocytes % 17.1 % (10-50); Mean Corpuscular HGB Conc 30.7 g/dL (31.8-35.4); Mean Corpuscular Hemoglobin 28.5 pg (27.0-31.2); Mean Platelet Volume 7.8 fl (7.4-10.4); Monocytes # 0.6 K/mm3 (0.1-1.0); Monocytes % 6.3 % (1.7-9.3); Neutrophils # 6.5 K/mm3 (1.8-7.8); Neutrophils % 73.3 % (37.0-80.0); Platelet Count 802 K/mm3 (142-424); Red Blood Count 4.92 M/mm3 (4.60-6.20); Red Cell Distribution Width 17.3 % (11.5-17.5); White Blood Count 8.8 K/mm3 (4.8-10.8)
[2022-08-09 09:24] LABS: Alanine Aminotransferase 28 U/L (12-78); Albumin Level 3.9 g/dl (3.5-5.0); Albumin/Globulin Ratio 1.5 (1.1-1.8); Alkaline Phosphatase 87 U/L (38-126); Anion Gap 14.1 mEq/L (5-15); Aspartate Amino Transferase 34 U/L (17-59); Bilirubin,Total 0.3 mg/dl (0.2-1.3); Blood Urea Nitrogen 13 mg/dl (9-20); Calcium 8.9 mg/dl (8.4-10.2); Carbon Dioxide 33 mmol/L (22.0-30.0); Chloride 98 mmol/L (98-107); Estimated Glomerular Filt Rate 74 ml/min (>60); GFR (African American) 89 ML/MIN (>60); Globulin 2.6 g/dL (1.3-3.2); Glucose 105 mg/dl (74-100); Potassium 4.1 mmoL/L (3.5-5.1); Sodium 141 mmol/L (136-145); Total Protein,Serum 6.5 g/dl (6.3-8.2)
== END ==
PROVIDERS: PCP Family Medicine; Visit Provider Internal Medicine Medical Oncology
DX: D75.839 Thrombocytosis, unspecified (principal)
CPT/HCPCS: 36415; 80053; 85025

== ENCOUNTER → 2022-08-20 08:37 | Outpatient (POV) | payer MEDICARE, SELFPAY | PROVIDERS: Visit Provider Dermatology | DX: Z00.00 Encounter for general adult medical examination without abnormal findings (principal) ==

== ENCOUNTER → 2022-09-04 13:41 | Outpatient (CLI) | payer MEDICARE, SELFPAY ==
[2022-09-04 16:27] LABS: Basophils # 0.1 K/mm3 (0-0.2); Basophils % 1.2 % (0.1-2.0); Eosinophils # 0.3 K/mm3 (0.0-0.4); Eosinophils % 3.4 % (0.1-12.0); Hematocrit 49.8 % (42.0-52.0); Hemoglobin 15.4 g/dL (14.1-18.0); Lymphocytes # 1.6 K/mm3 (0.7-4.5); Lymphocytes % 17.2 % (10-50); Mean Corpuscular HGB Conc 30.9 g/dL (31.8-35.4); Mean Corpuscular Hemoglobin 29.1 pg (27.0-31.2); Mean Corpuscular Volume 94.2 fl (80-94); Mean Platelet Volume 8.7 fl (7.4-10.4); Monocytes # 0.5 K/mm3 (0.1-1.0); Monocytes % 5.6 % (1.7-9.3); Neutrophils # 6.6 K/mm3 (1.8-7.8); Neutrophils % 72.6 % (37.0-80.0); Platelet Count 811 K/mm3 (142-424); Red Blood Count 5.29 M/mm3 (4.60-6.20); Red Cell Distribution Width 16.2 % (11.5-17.5); White Blood Count 9.1 K/mm3 (4.8-10.8)
[2022-09-04 16:59] LABS: Alanine Aminotransferase 38 U/L (12-78); Albumin Level 4.1 g/dl (3.5-5.0); Albumin/Globulin Ratio 1.5 (1.1-1.8); Alkaline Phosphatase 91 U/L (38-126); Anion Gap 14.2 mEq/L (5-15); Aspartate Amino Transferase 42 U/L (17-59); Bilirubin,Total 0.6 mg/dl (0.2-1.3); Blood Urea Nitrogen 16 mg/dl (9-20); Calcium 8.8 mg/dl (8.4-10.2); Carbon Dioxide 31 mmol/L (22.0-30.0); Chloride 98 mmol/L (98-107); Estimated Glomerular Filt Rate 74 ml/min (>60); GFR (African American) 89 ML/MIN (>60); Globulin 2.7 g/dL (1.3-3.2); Glucose 115 mg/dl (74-100); Potassium 4.2 mmoL/L (3.5-5.1); Sodium 139 mmol/L (136-145); Total Protein,Serum 6.8 g/dl (6.3-8.2)
== END ==
PROVIDERS: PCP Family Medicine; Visit Provider Internal Medicine Medical Oncology
DX: D69.6 Thrombocytopenia, unspecified (principal)
CPT/HCPCS: 36415; 80053; 85025

== ENCOUNTER 2022-09-05 09:37 | Outpatient (CLI) | payer MEDICARE, OTHER, SELFPAY | END 2022-09-05 10:30 | disposition home or self-care (01) | LOC: INF 09:38 | PROVIDERS: PCP Family Medicine; Visit Provider Internal Medicine Medical Oncology | DX: D69.6 Thrombocytopenia, unspecified (principal) | CPT/HCPCS: 99195 ==

== ENCOUNTER 2022-10-04 08:13 | Outpatient (CLI) | payer MEDICARE, OTHER, SELFPAY ==
[2022-10-04 08:39] LABS: Basophils # 0.1 K/mm3 (0-0.2); Basophils % 1.6 % (0.1-2.0); Eosinophils # 0.2 K/mm3 (0.0-0.4); Eosinophils % 3.3 % (0.1-12.0); Hematocrit 46.8 % (42.0-52.0); Hemoglobin 14.2 g/dL (14.1-18.0); Lymphocytes # 1.7 K/mm3 (0.7-4.5); Lymphocytes % 23.6 % (10-50); Mean Corpuscular HGB Conc 30.3 g/dL (31.8-35.4); Mean Corpuscular Hemoglobin 28.7 pg (27.0-31.2); Mean Corpuscular Volume 94.5 fl (80-94); Mean Platelet Volume 8.1 fl (7.4-10.4); Monocytes # 0.4 K/mm3 (0.1-1.0); Neutrophils # 4.7 K/mm3 (1.8-7.8); Neutrophils % 65.5 % (37.0-80.0); Platelet Count 839 K/mm3 (142-424); Red Blood Count 4.95 M/mm3 (4.60-6.20); Red Cell Distribution Width 15.1 % (11.5-17.5); White Blood Count 7.1 K/mm3 (4.8-10.8)
[2022-10-04 09:35] VITALS: BP 134/60; PULSE 64; RESP 18; O2SAT 100
[2022-10-04 09:44] LABS: Chloride 99 mmol/L (98-107); Potassium 3.9 mmoL/L (3.5-5.1); Sodium 143 mmol/L (136-145)
[2022-10-04 09:46] LABS: Alanine Aminotransferase 36 U/L (12-78); Aspartate Amino Transferase 39 U/L (17-59); Blood Urea Nitrogen 14 mg/dl (9-20); Estimated Glomerular Filt Rate 74 ml/min (>60); GFR (African American) 89 ML/MIN (>60)
[2022-10-04 09:47] LABS: Albumin Level 4.2 g/dl (3.5-5.0); Albumin/Globulin Ratio 1.6 (1.1-1.8); Alkaline Phosphatase 75 U/L (38-126); Anion Gap 15.9 mEq/L (5-15); Bilirubin,Total 0.3 mg/dl (0.2-1.3); Calcium 9.2 mg/dl (8.4-10.2); Carbon Dioxide 32 mmol/L (22.0-30.0); Globulin 2.6 g/dL (1.3-3.2); Glucose 96 mg/dl (74-100); Total Protein,Serum 6.8 g/dl (6.3-8.2)
[2022-10-04 09:58] VITALS: BP 134/76; PULSE 64; RESP 18
== END 2022-10-04 09:58 | disposition home or self-care (01) ==
LOC: INF 08:14
PROVIDERS: PCP Family Medicine; Visit Provider Internal Medicine Medical Oncology
DX: D69.6 Thrombocytopenia, unspecified (principal)
CPT/HCPCS: 36415; 80053; 85025; 99195

== ENCOUNTER → 2022-12-04 10:43 | Outpatient (CLI) | payer MEDICARE, OTHER, SELFPAY ==
[2022-12-04 12:01] LABS: Basophils # 0.1 K/mm3 (0-0.2); Basophils % 0.8 % (0.1-2.0); Eosinophils # 0.1 K/mm3 (0.0-0.4); Eosinophils % 2.3 % (0.1-12.0); Hematocrit 48.2 % (42.0-52.0); Hemoglobin 14.4 g/dL (14.1-18.0); Lymphocytes # 1.6 K/mm3 (0.7-4.5); Lymphocytes % 25.1 % (10-50); Mean Corpuscular HGB Conc 29.8 g/dL (31.8-35.4); Mean Corpuscular Hemoglobin 28.2 pg (27.0-31.2); Mean Corpuscular Volume 94.6 fl (80-94); Mean Platelet Volume 8.3 fl (7.4-10.4); Monocytes # 0.4 K/mm3 (0.1-1.0); Monocytes % 7.2 % (1.7-9.3); Neutrophils % 64.6 % (37.0-80.0); Platelet Count 869 K/mm3 (142-424); Red Blood Count 5.09 M/mm3 (4.60-6.20); Red Cell Distribution Width 16.8 % (11.5-17.5); White Blood Count 6.2 K/mm3 (4.8-10.8)
[2022-12-04 12:05] LABS: Chloride 100 mmol/L (98-107); Potassium 3.8 mmoL/L (3.5-5.1); Sodium 140 mmol/L (136-145)
[2022-12-04 12:08] LABS: Alanine Aminotransferase 46 U/L (12-78); Alkaline Phosphatase 64 U/L (38-126); Anion Gap 12.8 mEq/L (5-15); Aspartate Amino Transferase 49 U/L (17-59); Bilirubin,Total 0.7 mg/dl (0.2-1.3); Blood Urea Nitrogen 16 mg/dl (9-20); Calcium 8.9 mg/dl (8.4-10.2); Carbon Dioxide 31 mmol/L (22.0-30.0); Estimated Glomerular Filt Rate 66 ml/min (>60); GFR (African American) 80 ML/MIN (>60); Glucose 102 mg/dl (74-100); Total Protein,Serum 7.2 g/dl (6.3-8.2)
[2022-12-04 14:20] LABS: Albumin Level 4.4 g/dl (3.5-5.0); Albumin/Globulin Ratio 1.6 (1.1-1.8); Globulin 2.8 g/dL (1.3-3.2)
== END ==
PROVIDERS: PCP Family Medicine; Visit Provider Internal Medicine Medical Oncology
DX: D45 Polycythemia vera (principal)
CPT/HCPCS: 36415; 80053; 85025

== ENCOUNTER 2022-12-05 10:43 | Outpatient (CLI) | payer MEDICARE, OTHER, SELFPAY ==
[2022-12-05 11:00] VITALS: BP 135/79; PULSE 68; RESP 18; O2SAT 100
[2022-12-05 11:20] VITALS: BP 137/78; PULSE 60; RESP 20
== END 2022-12-05 11:20 | disposition home or self-care (01) ==
LOC: INF 10:44
PROVIDERS: PCP Family Medicine; Visit Provider Internal Medicine Medical Oncology
DX: D45 Polycythemia vera (principal)
CPT/HCPCS: 99195

== ENCOUNTER → 2023-01-20 09:59 | Outpatient (CLI) | payer MEDICARE, OTHER, SELFPAY ==
[2023-01-20 10:40] LABS: Basophils # 0.1 K/mm3 (0-0.2); Basophils % 1.1 % (0.1-2.0); Eosinophils # 0.1 K/mm3 (0.0-0.4); Eosinophils % 1.4 % (0.1-12.0); Hemoglobin 13.9 g/dL (14.1-18.0); Lymphocytes # 1.3 K/mm3 (0.7-4.5); Lymphocytes % 13.1 % (10-50); Mean Corpuscular HGB Conc 31.5 g/dL (31.8-35.4); Mean Corpuscular Hemoglobin 29.5 pg (27.0-31.2); Mean Corpuscular Volume 93.5 fl (80-94); Mean Platelet Volume 7.8 fl (7.4-10.4); Monocytes # 0.5 K/mm3 (0.1-1.0); Monocytes % 4.9 % (1.7-9.3); Neutrophils # 7.6 K/mm3 (1.8-7.8); Neutrophils % 79.5 % (37.0-80.0); Platelet Count 513 K/mm3 (142-424); Red Blood Count 4.71 M/mm3 (4.60-6.20); Red Cell Distribution Width 17.1 % (11.5-17.5); White Blood Count 9.5 K/mm3 (4.8-10.8)
[2023-01-20 11:25] LABS: Alanine Aminotransferase 28 U/L (12-78); Albumin Level 4.3 g/dl (3.5-5.0); Albumin/Globulin Ratio 1.5 (1.1-1.8); Alkaline Phosphatase 89 U/L (38-126); Anion Gap 7.7 mEq/L (5-15); Aspartate Amino Transferase 33 U/L (17-59); Bilirubin,Total 0.8 mg/dl (0.2-1.3); Blood Urea Nitrogen 12 mg/dl (9-20); Calcium 8.9 mg/dl (8.4-10.2); Carbon Dioxide 31 mmol/L (22.0-30.0); Chloride 103 mmol/L (98-107); Estimated Glomerular Filt Rate 66 ml/min (>60); GFR (African American) 80 ML/MIN (>60); Globulin 2.8 g/dL (1.3-3.2); Glucose 108 mg/dl (74-100); Potassium 3.7 mmoL/L (3.5-5.1); Sodium 138 mmol/L (136-145); Total Protein,Serum 7.1 g/dl (6.3-8.2)
== END ==
PROVIDERS: PCP Family Medicine; Visit Provider Internal Medicine Medical Oncology
DX: D45 Polycythemia vera (principal)
CPT/HCPCS: 36415; 80053; 85025

== ENCOUNTER → 2023-02-17 11:40 | Outpatient (CLI) | payer MEDICARE, OTHER, SELFPAY ==
[2023-02-17 12:25] LABS: Basophils # 0.1 K/mm3 (0-0.2); Eosinophils # 0.1 K/mm3 (0.0-0.4); Eosinophils % 1.7 % (0.1-12.0); Hemoglobin 13.9 g/dL (14.1-18.0); Lymphocytes # 1.6 K/mm3 (0.7-4.5); Lymphocytes % 23.6 % (10-50); Mean Corpuscular HGB Conc 30.3 g/dL (31.8-35.4); Mean Corpuscular Hemoglobin 29.4 pg (27.0-31.2); Mean Platelet Volume 8.2 fl (7.4-10.4); Monocytes # 0.3 K/mm3 (0.1-1.0); Monocytes % 4.8 % (1.7-9.3); Neutrophils # 4.7 K/mm3 (1.8-7.8); Neutrophils % 68.9 % (37.0-80.0); Platelet Count 587 K/mm3 (142-424); Red Blood Count 4.75 M/mm3 (4.60-6.20); Red Cell Distribution Width 16.9 % (11.5-17.5); White Blood Count 6.8 K/mm3 (4.8-10.8)
[2023-02-17 12:57] LABS: Chloride 100 mmol/L (98-107); Potassium 4.3 mmoL/L (3.5-5.1); Sodium 140 mmol/L (136-145)
[2023-02-17 12:57] LABS: Alanine Aminotransferase 41 U/L (12-78); Aspartate Amino Transferase 48 U/L (17-59)
[2023-02-17 12:58] LABS: Albumin Level 4.3 g/dl (3.5-5.0); Alkaline Phosphatase 78 U/L (38-126); Bilirubin,Indirect 0.9 mg/dL (0.0-0.9); Bilirubin,Total 0.9 mg/dl (0.2-1.3); Chol/HDL Ratio 3.8 (1-3.5); Cholesterol 102 mg/dl (140-200); HDL Cholesterol 27 mg/dl (40-60); Total Protein,Serum 7.1 g/dl (6.3-8.2); Triglycerides 141 mg/dl (30-150); VLDL Cholesterol 28 mg/dL (0-40)
[2023-02-17 13:00] LABS: Anion Gap 10.3 mEq/L (5-15); Blood Urea Nitrogen 17 mg/dl (9-20); Carbon Dioxide 34 mmol/L (22.0-30.0); Estimated Glomerular Filt Rate 66 ml/min (>60); GFR (African American) 80 ML/MIN (>60)
[2023-02-17 13:01] LABS: Calcium 9.2 mg/dl (8.4-10.2); Glucose 105 mg/dl (74-100)
[2023-02-17 13:10] LABS: Direct LDL Cholesterol 59.58 mg/dL (100-129)
== END ==
PROVIDERS: PCP Internal Medicine Medical Oncology; Visit Provider Nurse Practitioner Family
DX: E78.2 Mixed hyperlipidemia (principal); I10 Essential (primary) hypertension; I51.9 Heart disease, unspecified; Q24.5 Malformation of coronary vessels
CPT/HCPCS: 36415; 80048; 80053; 80061; 80076; 85025

== ENCOUNTER → 2023-03-20 10:41 | Outpatient (CLI) | payer MEDICARE, OTHER, SELFPAY ==
[2023-03-20 11:39] LABS: Basophils % 0.7 % (0.1-2.0); Eosinophils # 0.1 K/mm3 (0.0-0.4); Eosinophils % 1.9 % (0.1-12.0); Hematocrit 43.4 % (42.0-52.0); Hemoglobin 13.6 g/dL (14.1-18.0); Lymphocytes # 1.3 K/mm3 (0.7-4.5); Lymphocytes % 23.8 % (10-50); Mean Corpuscular HGB Conc 31.4 g/dL (31.8-35.4); Mean Corpuscular Hemoglobin 30.4 pg (27.0-31.2); Mean Platelet Volume 7.8 fl (7.4-10.4); Monocytes # 0.4 K/mm3 (0.1-1.0); Monocytes % 6.4 % (1.7-9.3); Neutrophils # 3.8 K/mm3 (1.8-7.8); Neutrophils % 67.3 % (37.0-80.0); Platelet Count 532 K/mm3 (142-424); Red Blood Count 4.47 M/mm3 (4.60-6.20); Red Cell Distribution Width 16.4 % (11.5-17.5); White Blood Count 5.6 K/mm3 (4.8-10.8)
[2023-03-20 13:06] LABS: Alanine Aminotransferase 37 U/L (12-78); Albumin Level 3.9 g/dl (3.5-5.0); Albumin/Globulin Ratio 1.4 (1.1-1.8); Alkaline Phosphatase 71 U/L (38-126); Anion Gap 12.3 mEq/L (5-15); Aspartate Amino Transferase 44 U/L (17-59); Bilirubin,Total 0.5 mg/dl (0.2-1.3); Blood Urea Nitrogen 17 mg/dl (9-20); Calcium 8.6 mg/dl (8.4-10.2); Carbon Dioxide 30 mmol/L (22.0-30.0); Chloride 100 mmol/L (98-107); Estimated Glomerular Filt Rate 60 ml/min (>60); GFR (African American) 72 ML/MIN (>60); Globulin 2.7 g/dL (1.3-3.2); Glucose 96 mg/dl (74-100); Potassium 3.3 mmoL/L (3.5-5.1); Sodium 139 mmol/L (136-145); Total Protein,Serum 6.6 g/dl (6.3-8.2)
== END ==
PROVIDERS: PCP Family Medicine; Visit Provider Internal Medicine Medical Oncology
DX: D45 Polycythemia vera (principal); D69.6 Thrombocytopenia, unspecified
CPT/HCPCS: 36415; 80053; 85025

== ENCOUNTER → 2023-04-17 09:11 | Outpatient (CLI) | payer MEDICARE, OTHER, SELFPAY ==
[2023-04-17 09:48] LABS: Basophils % 0.7 % (0.1-2.0); Eosinophils # 0.1 K/mm3 (0.0-0.4); Hematocrit 45.1 % (42.0-52.0); Hemoglobin 14.5 g/dL (14.1-18.0); Lymphocytes # 1.4 K/mm3 (0.7-4.5); Lymphocytes % 22.7 % (10-50); Mean Corpuscular HGB Conc 32.1 g/dL (31.8-35.4); Mean Corpuscular Hemoglobin 32.3 pg (27.0-31.2); Mean Corpuscular Volume 100.6 fl (80-94); Mean Platelet Volume 7.7 fl (7.4-10.4); Monocytes # 0.4 K/mm3 (0.1-1.0); Monocytes % 5.9 % (1.7-9.3); Neutrophils # 4.2 K/mm3 (1.8-7.8); Neutrophils % 68.7 % (37.0-80.0); Platelet Count 531 K/mm3 (142-424); Red Blood Count 4.48 M/mm3 (4.60-6.20); Red Cell Distribution Width 15.9 % (11.5-17.5); White Blood Count 6.1 K/mm3 (4.8-10.8)
[2023-04-17 10:10] LABS: Alanine Aminotransferase 42 U/L (12-78); Albumin Level 4.2 g/dl (3.5-5.0); Albumin/Globulin Ratio 1.4 (1.1-1.8); Alkaline Phosphatase 77 U/L (38-126); Anion Gap 16.2 mEq/L (5-15); Aspartate Amino Transferase 50 U/L (17-59); Bilirubin,Total 0.8 mg/dl (0.2-1.3); Blood Urea Nitrogen 15 mg/dl (9-20); Carbon Dioxide 33 mmol/L (22.0-30.0); Chloride 94 mmol/L (98-107); Estimated Glomerular Filt Rate 74 ml/min (>60); GFR (African American) 89 ML/MIN (>60); Globulin 2.9 g/dL (1.3-3.2); Glucose 108 mg/dl (74-100); Potassium 4.2 mmoL/L (3.5-5.1); Sodium 139 mmol/L (136-145); Total Protein,Serum 7.1 g/dl (6.3-8.2)
== END ==
PROVIDERS: PCP Family Medicine; Visit Provider Internal Medicine Medical Oncology
DX: D69.6 Thrombocytopenia, unspecified (principal); D45 Polycythemia vera
CPT/HCPCS: 36415; 80053; 85025

== ENCOUNTER → 2023-05-16 23:11 | Outpatient (CLI) | payer MEDICARE, OTHER, SELFPAY | PROVIDERS: PCP Student in an Organized Health Care Education/Training Program; Visit Provider Student in an Organized Health Care Education/Training Program | DX: N39.0 Urinary tract infection, site not specified (principal) | CPT/HCPCS: 87086 ==

== ENCOUNTER → 2023-05-21 10:40 | Outpatient (CLI) | payer MEDICARE, OTHER, SELFPAY ==
[2023-05-21 11:11] LABS: Basophils # 0.1 K/mm3 (0-0.2); Basophils % 0.8 % (0.1-2.0); Eosinophils # 0.1 K/mm3 (0.0-0.4); Eosinophils % 1.7 % (0.1-12.0); Hematocrit 47.2 % (42.0-52.0); Hemoglobin 14.6 g/dL (14.1-18.0); Lymphocytes # 1.2 K/mm3 (0.7-4.5); Lymphocytes % 20.1 % (10-50); Mean Corpuscular Hemoglobin 31.1 pg (27.0-31.2); Mean Corpuscular Volume 100.4 fl (80-94); Monocytes # 0.3 K/mm3 (0.1-1.0); Monocytes % 5.6 % (1.7-9.3); Neutrophils # 4.4 K/mm3 (1.8-7.8); Neutrophils % 71.7 % (37.0-80.0); Platelet Count 513 K/mm3 (142-424); Red Cell Distribution Width 15.3 % (11.5-17.5); White Blood Count 6.1 K/mm3 (4.8-10.8)
[2023-05-21 11:42] LABS: Alanine Aminotransferase 55 U/L (12-78); Albumin Level 4.3 g/dl (3.5-5.0); Albumin/Globulin Ratio 1.5 (1.1-1.8); Alkaline Phosphatase 84 U/L (38-126); Anion Gap 15.2 mEq/L (5-15); Aspartate Amino Transferase 64 U/L (17-59); Bilirubin,Total 0.8 mg/dl (0.2-1.3); Blood Urea Nitrogen 18 mg/dl (9-20); Carbon Dioxide 33 mmol/L (22.0-30.0); Chloride 95 mmol/L (98-107); Estimated Glomerular Filt Rate 66 ml/min (>60); GFR (African American) 80 ML/MIN (>60); Globulin 2.9 g/dL (1.3-3.2); Glucose 107 mg/dl (74-100); Potassium 3.2 mmoL/L (3.5-5.1); Sodium 140 mmol/L (136-145); Total Protein,Serum 7.2 g/dl (6.3-8.2)
== END ==
PROVIDERS: PCP Family Medicine; Visit Provider Internal Medicine Medical Oncology
DX: D69.6 Thrombocytopenia, unspecified (principal); D45 Polycythemia vera; D69.9 Hemorrhagic condition, unspecified
CPT/HCPCS: 36415; 80053; 85025

== ENCOUNTER → 2023-06-19 13:27 | Outpatient (CLI) | payer MEDICARE, OTHER, SELFPAY ==
[2023-06-19 14:25] LABS: Basophils % 0.5 % (0.1-2.0); Eosinophils # 0.1 K/mm3 (0.0-0.4); Eosinophils % 1.5 % (0.1-12.0); Hematocrit 47.3 % (42.0-52.0); Hemoglobin 14.3 g/dL (14.1-18.0); Lymphocytes # 1.4 K/mm3 (0.7-4.5); Lymphocytes % 23.9 % (10-50); Mean Corpuscular HGB Conc 30.3 g/dL (31.8-35.4); Mean Corpuscular Hemoglobin 31.5 pg (27.0-31.2); Mean Corpuscular Volume 103.8 fl (80-94); Mean Platelet Volume 8.2 fl (7.4-10.4); Monocytes # 0.4 K/mm3 (0.1-1.0); Monocytes % 5.9 % (1.7-9.3); Neutrophils % 68.1 % (37.0-80.0); Platelet Count 540 K/mm3 (142-424); Red Blood Count 4.55 M/mm3 (4.60-6.20); Red Cell Distribution Width 15.4 % (11.5-17.5); White Blood Count 5.9 K/mm3 (4.8-10.8)
[2023-06-19 14:59] LABS: Alanine Aminotransferase 41 U/L (12-78); Albumin Level 4.4 g/dl (3.5-5.0); Albumin/Globulin Ratio 1.6 (1.1-1.8); Alkaline Phosphatase 72 U/L (38-126); Anion Gap 12.2 mEq/L (5-15); Aspartate Amino Transferase 47 U/L (17-59); Bilirubin,Total 0.7 mg/dl (0.2-1.3); Blood Urea Nitrogen 15 mg/dl (9-20); Calcium 9.1 mg/dl (8.4-10.2); Carbon Dioxide 33 mmol/L (22.0-30.0); Chloride 103 mmol/L (98-107); Estimated Glomerular Filt Rate 66 ml/min (>60); GFR (African American) 80 ML/MIN (>60); Globulin 2.7 g/dL (1.3-3.2); Glucose 100 mg/dl (74-100); Potassium 4.2 mmoL/L (3.5-5.1); Sodium 144 mmol/L (136-145); Total Protein,Serum 7.1 g/dl (6.3-8.2)
== END ==
PROVIDERS: PCP Family Medicine; Visit Provider Internal Medicine Medical Oncology
DX: D69.6 Thrombocytopenia, unspecified (principal); D45 Polycythemia vera
CPT/HCPCS: 36415; 80053; 85025

== ENCOUNTER → 2023-07-21 13:37 | Outpatient (CLI) | payer MEDICARE, OTHER, SELFPAY ==
[2023-07-21 14:42] LABS: Basophils % 0.5 % (0.1-2.0); Eosinophils # 0.1 K/mm3 (0.0-0.4); Eosinophils % 1.4 % (0.1-12.0); Hematocrit 47.9 % (42.0-52.0); Hemoglobin 15.3 g/dL (14.1-18.0); Lymphocytes # 1.2 K/mm3 (0.7-4.5); Lymphocytes % 18.8 % (10-50); Mean Corpuscular Hemoglobin 33.5 pg (27.0-31.2); Mean Corpuscular Volume 104.7 fl (80-94); Mean Platelet Volume 8.5 fl (7.4-10.4); Monocytes # 0.4 K/mm3 (0.1-1.0); Monocytes % 5.8 % (1.7-9.3); Neutrophils # 4.6 K/mm3 (1.8-7.8); Neutrophils % 73.4 % (37.0-80.0); Platelet Count 558 K/mm3 (142-424); Red Blood Count 4.57 M/mm3 (4.60-6.20); Red Cell Distribution Width 15.2 % (11.5-17.5); White Blood Count 6.3 K/mm3 (4.8-10.8)
[2023-07-21 14:52] LABS: Alanine Aminotransferase 52 U/L (12-78); Albumin Level 4.5 g/dl (3.5-5.0); Albumin/Globulin Ratio 1.4 (1.1-1.8); Alkaline Phosphatase 76 U/L (38-126); Anion Gap 13.9 mEq/L (5-15); Aspartate Amino Transferase 52 U/L (17-59); Bilirubin,Total 0.5 mg/dl (0.2-1.3); Blood Urea Nitrogen 19 mg/dl (9-20); Calcium 9.4 mg/dl (8.4-10.2); Carbon Dioxide 33 mmol/L (22.0-30.0); Chloride 99 mmol/L (98-107); Estimated Glomerular Filt Rate 60 ml/min (>60); GFR (African American) 72 ML/MIN (>60); Globulin 3.2 g/dL (1.3-3.2); Glucose 112 mg/dl (74-100); Potassium 3.9 mmoL/L (3.5-5.1); Sodium 142 mmol/L (136-145); Total Protein,Serum 7.7 g/dl (6.3-8.2)
== END ==
PROVIDERS: PCP Family Medicine; Visit Provider Internal Medicine Medical Oncology
DX: D69.6 Thrombocytopenia, unspecified (principal); D45 Polycythemia vera
CPT/HCPCS: 36415; 80053; 85025

== ENCOUNTER → 2023-08-22 14:39 | Outpatient (CLI) | payer MEDICARE, OTHER, SELFPAY ==
[2023-08-22 15:04] LABS: Basophils % 0.5 % (0.1-2.0); Eosinophils # 0.1 K/mm3 (0.0-0.4); Eosinophils % 0.8 % (0.1-12.0); Hematocrit 46.7 % (42.0-52.0); Hemoglobin 14.6 g/dL (14.1-18.0); Lymphocytes # 1.1 K/mm3 (0.7-4.5); Lymphocytes % 16.5 % (10-50); Mean Corpuscular HGB Conc 31.2 g/dL (31.8-35.4); Mean Corpuscular Hemoglobin 32.8 pg (27.0-31.2); Mean Corpuscular Volume 105.2 fl (80-94); Mean Platelet Volume 8.3 fl (7.4-10.4); Monocytes # 0.4 K/mm3 (0.1-1.0); Monocytes % 5.2 % (1.7-9.3); Neutrophils # 5.1 K/mm3 (1.8-7.8); Platelet Count 611 K/mm3 (142-424); Red Blood Count 4.44 M/mm3 (4.60-6.20); Red Cell Distribution Width 15.6 % (11.5-17.5); White Blood Count 6.6 K/mm3 (4.8-10.8)
[2023-08-22 15:28] LABS: Chloride 101 mmol/L (98-107); Sodium 142 mmol/L (136-145)
[2023-08-22 15:29] LABS: Potassium 3.6 mmoL/L (3.5-5.1)
[2023-08-22 15:31] LABS: Alanine Aminotransferase 51 U/L (12-78); Alkaline Phosphatase 67 U/L (38-126); Aspartate Amino Transferase 55 U/L (17-59); Bilirubin,Total 0.9 mg/dl (0.2-1.3); Blood Urea Nitrogen 17 mg/dl (9-20); Estimated Glomerular Filt Rate 66 ml/min (>60); GFR (African American) 80 ML/MIN (>60)
[2023-08-22 15:32] LABS: Albumin/Globulin Ratio 1.4 (1.1-1.8); Anion Gap 11.6 mEq/L (5-15); Carbon Dioxide 33 mmol/L (22.0-30.0); Globulin 2.8 g/dL (1.3-3.2); Glucose 134 mg/dl (74-100); Total Protein,Serum 6.8 g/dl (6.3-8.2)
== END ==
PROVIDERS: PCP Family Medicine; Visit Provider Internal Medicine Medical Oncology
DX: D69.9 Hemorrhagic condition, unspecified (principal)
CPT/HCPCS: 80053; 85025

== ENCOUNTER → 2023-09-19 10:33 | Outpatient (CLI) | payer MEDICARE, OTHER, SELFPAY ==
[2023-09-19 11:30] LABS: Basophils % 0.6 % (0.1-2.0); Eosinophils # 0.1 K/mm3 (0.0-0.4); Hematocrit 44.6 % (42.0-52.0); Hemoglobin 14.8 g/dL (14.1-18.0); Lymphocytes # 1.4 K/mm3 (0.7-4.5); Lymphocytes % 22.1 % (10-50); Mean Corpuscular HGB Conc 33.2 g/dL (31.8-35.4); Mean Corpuscular Hemoglobin 35.3 pg (27.0-31.2); Mean Corpuscular Volume 106.4 fl (80-94); Mean Platelet Volume 8.2 fl (7.4-10.4); Monocytes # 0.3 K/mm3 (0.1-1.0); Monocytes % 5.3 % (1.7-9.3); Neutrophils # 4.3 K/mm3 (1.8-7.8); Platelet Count 538 K/mm3 (142-424); Red Blood Count 4.19 M/mm3 (4.60-6.20); Red Cell Distribution Width 14.9 % (11.5-17.5); White Blood Count 6.2 K/mm3 (4.8-10.8)
[2023-09-19 12:20] LABS: Alanine Aminotransferase 43 U/L (12-78); Albumin Level 4.1 g/dl (3.5-5.0); Albumin/Globulin Ratio 1.4 (1.1-1.8); Alkaline Phosphatase 67 U/L (38-126); Anion Gap 16.8 mEq/L (5-15); Aspartate Amino Transferase 55 U/L (17-59); Bilirubin,Total 0.7 mg/dl (0.2-1.3); Blood Urea Nitrogen 13 mg/dl (9-20); Carbon Dioxide 29 mmol/L (22.0-30.0); Chloride 101 mmol/L (98-107); Estimated Glomerular Filt Rate 74 ml/min (>60); GFR (African American) 89 ML/MIN (>60); Globulin 2.9 g/dL (1.3-3.2); Glucose 103 mg/dl (74-100); Potassium 3.8 mmoL/L (3.5-5.1); Sodium 143 mmol/L (136-145)
== END ==
PROVIDERS: PCP Family Medicine; Visit Provider Internal Medicine Medical Oncology
DX: D69.9 Hemorrhagic condition, unspecified (principal)
CPT/HCPCS: 36415; 80053; 85025

== ENCOUNTER → 2023-10-20 14:03 | Outpatient (CLI) | payer MEDICARE, OTHER, SELFPAY ==
[2023-10-20 14:37] LABS: Basophils % 0.7 % (0.1-2.0); Eosinophils # 0.2 K/mm3 (0.0-0.4); Eosinophils % 2.3 % (0.1-12.0); Hematocrit 45.5 % (42.0-52.0); Hemoglobin 14.9 g/dL (14.1-18.0); Lymphocytes # 1.6 K/mm3 (0.7-4.5); Lymphocytes % 24.3 % (10-50); Mean Corpuscular HGB Conc 32.8 g/dL (31.8-35.4); Mean Corpuscular Hemoglobin 34.4 pg (27.0-31.2); Mean Corpuscular Volume 105.1 fl (80-94); Mean Platelet Volume 8.2 fl (7.4-10.4); Monocytes # 0.4 K/mm3 (0.1-1.0); Monocytes % 6.7 % (1.7-9.3); Neutrophils # 4.4 K/mm3 (1.8-7.8); Platelet Count 500 K/mm3 (142-424); Red Blood Count 4.33 M/mm3 (4.60-6.20); White Blood Count 6.6 K/mm3 (4.8-10.8)
[2023-10-20 15:37] LABS: Alanine Aminotransferase 51 U/L (12-78); Albumin Level 4.2 g/dl (3.5-5.0); Albumin/Globulin Ratio 1.4 (1.1-1.8); Alkaline Phosphatase 67 U/L (38-126); Anion Gap 9.9 mEq/L (5-15); Aspartate Amino Transferase 56 U/L (17-59); Bilirubin,Total 0.6 mg/dl (0.2-1.3); Blood Urea Nitrogen 16 mg/dl (9-20); Calcium 8.9 mg/dl (8.4-10.2); Carbon Dioxide 32 mmol/L (22.0-30.0); Chloride 102 mmol/L (98-107); Estimated Glomerular Filt Rate 66 ml/min (>60); GFR (African American) 80 ML/MIN (>60); Globulin 3.1 g/dL (1.3-3.2); Glucose 102 mg/dl (74-100); Potassium 3.9 mmoL/L (3.5-5.1); Sodium 140 mmol/L (136-145); Total Protein,Serum 7.3 g/dl (6.3-8.2)
== END ==
PROVIDERS: PCP Family Medicine; Visit Provider Internal Medicine Medical Oncology
DX: D47.3 Essential (hemorrhagic) thrombocythemia (principal)
CPT/HCPCS: 36415; 80053; 85025

== ENCOUNTER 2024-01-21 13:50 | Outpatient (CLI) | payer MEDICARE, OTHER, SELFPAY ==
[2024-01-21 14:50] LABS: Basophils % 0.5 % (0.1-2.0); Eosinophils # 0.1 K/mm3 (0.0-0.4); Eosinophils % 1.1 % (0.1-12.0); Hematocrit 48.5 % (42.0-52.0); Lymphocytes # 1.6 K/mm3 (0.7-4.5); Mean Corpuscular Hemoglobin 33.1 pg (27.0-31.2); Mean Corpuscular Volume 106.9 fl (80-94); Mean Platelet Volume 8.2 fl (7.4-10.4); Monocytes # 0.4 K/mm3 (0.1-1.0); Monocytes % 6.4 % (1.7-9.3); Neutrophils # 4.8 K/mm3 (1.8-7.8); Platelet Count 559 K/mm3 (142-424); Red Blood Count 4.53 M/mm3 (4.60-6.20); Red Cell Distribution Width 14.8 % (11.5-17.5); White Blood Count 6.9 K/mm3 (4.8-10.8)
[2024-01-21 15:46] LABS: Alanine Aminotransferase 46 U/L (12-78); Albumin Level 4.5 g/dl (3.5-5.0); Albumin/Globulin Ratio 1.6 (1.1-1.8); Alkaline Phosphatase 81 U/L (38-126); Anion Gap 12.1 mEq/L (5-15); Aspartate Amino Transferase 47 U/L (17-59); Bilirubin,Total 0.8 mg/dl (0.2-1.3); Blood Urea Nitrogen 14 mg/dl (9-20); Calcium 9.3 mg/dl (8.4-10.2); Carbon Dioxide 30 mmol/L (22.0-30.0); Chloride 103 mmol/L (98-107); Estimated Glomerular Filt Rate 60 ml/min (>60); GFR (African American) 72 ML/MIN (>60); Globulin 2.9 g/dL (1.3-3.2); Glucose 105 mg/dl (74-100); Potassium 4.1 mmoL/L (3.5-5.1); Sodium 141 mmol/L (136-145); Total Protein,Serum 7.4 g/dl (6.3-8.2)
== END 2024-01-21 23:59 ==
LOC: LAB 13:52
PROVIDERS: PCP Family Medicine; Visit Provider Internal Medicine Medical Oncology
DX: D69.9 Hemorrhagic condition, unspecified (principal); Z79.899 Other long term (current) drug therapy
CPT/HCPCS: 36415; 80053; 85025

== ENCOUNTER 2024-02-04 10:22 | Outpatient (CLI) | payer MEDICARE, OTHER, SELFPAY ==
[2024-02-04 10:56] LABS: Basophils # 0.1 K/mm3 (0-0.2); Basophils % 1.5 % (0.1-2.0); Eosinophils # 0.1 K/mm3 (0.0-0.4); Eosinophils % 1.7 % (0.1-12.0); Hematocrit 46.3 % (42.0-52.0); Hemoglobin 14.8 g/dL (14.1-18.0); Lymphocytes # 1.2 K/mm3 (0.7-4.5); Lymphocytes % 23.3 % (10-50); Mean Corpuscular HGB Conc 31.9 g/dL (31.8-35.4); Mean Corpuscular Hemoglobin 34.3 pg (27.0-31.2); Mean Corpuscular Volume 107.6 fl (80-94); Mean Platelet Volume 7.9 fl (7.4-10.4); Monocytes # 0.3 K/mm3 (0.1-1.0); Monocytes % 5.4 % (1.7-9.3); Neutrophils # 3.5 K/mm3 (1.8-7.8); Neutrophils % 68.1 % (37.0-80.0); Platelet Count 526 K/mm3 (142-424); Red Blood Count 4.31 M/mm3 (4.60-6.20); Red Cell Distribution Width 15.6 % (11.5-17.5); White Blood Count 5.2 K/mm3 (4.8-10.8)
== END 2024-02-04 23:59 ==
LOC: LAB 10:23
PROVIDERS: PCP Family Medicine; Visit Provider Internal Medicine Medical Oncology
DX: D45 Polycythemia vera (principal)
CPT/HCPCS: 36415; 85025

== ENCOUNTER 2024-02-11 14:50 | Outpatient (CLI) | payer MEDICARE, OTHER, SELFPAY ==
--- NOTE | 2024-02-11 14:51 | CA_ITS ---
APPROVED REPORT EXAM: Comprehensive 2D, Doppler, and color-flow Echocardiogram Senior Consulting Manager: Marifer Sanchez RVT Ht: 5 ft 8 in Wt: 191lbs BSA: 2.00 BP: 147/71 mmHg Indications: HTN,MYOCARDIAL BRIDGE,DD,HTN,HLD 2D Dimensions LA Volume 50.70 mL LA Volume Index 25.22 mL/m2 (M/F) 16-34 M-Mode Dimensions RVDd 2.82 cm (0.9-2.6) LA Diam 3.74 cm (1.9-4.0) LVDd 5.37 cm (3.5-5.7) LVDs 3.67 cm (3.5-5.7) IVSd 0.98 cm (0.6-1.1) PWd 0.63 cm (0.6-1.1) EF (Teich) 59.10% FS 31.70% EDV (Teich) 139.50 mL TAPSE 3.27 (<1.7) ESV (Teich) 57.00 mL LV Diastology E Decel Time 227 (160-240 msec) E/A Ratio 0.9 Aortic Valve MARY Index 1.57 cm2/m2 AoV Peak Juan. 128.0 (50-130 cm/s) AO Peak GR. 6.50 mmHg AO Mean GR. 3.50 (<5 mmHg) AO VTI 24.9 (18-25 cm) MARY (VTI) 3.22 (2.5-4.5 cm2) Mitral Valve MV E Max Juan. 71.0 (40-130 cm/s) MV A Velocity 82.0 (40-130 cm/s) E/A Ratio 0.87 MV PHT 66.0 ms Pulmonary Valve PV Peak Velocity 66.0 (50-150 cm/s) Tricuspid Valve TR P. Velocity 250.00 cm/s RAP Estimate 10.00 mmHg RVSP 34.90 mmHg Left Ventricle The left ventricle is normal size. The left ventricular systolic function is normal. The left ventricular ejection fraction is within the normal range. There is normal left ventricular wall thickness. There is normal LV segmental wall motion. The left ventricular diastolic function is normal. LVEF is 55%. Right Ventricle The right ventricle is mildly dilated. The right ventricular systolic function is normal. Atria The left atrium is mildly dilated. The right atrium size is normal. There is no Doppler evidence of interatrial shunt. Aortic Valve The aortic valve is mildly thickened. There is no aortic valvular stenosis. Mild aortic regurgitation is present. Mitral Valve There is possible bileaflet prolapse of the mitral valve. No evidence of mitral valve stenosis. Mild to moderate mitral regurgitation. Tricuspid Valve The tricuspid valve leaflets are thin and pliable. Mild tricuspid regurgitation. RVSP is 25-30 mmHg. Pulmonic Valve The pulmonary valve is normal in structure. Trace pulmonic regurgitation. Great Vessels The aortic root is normal in size. The ascending aorta is normal in size. IVC is normal in size and collapses >50% with inspiration. Pericardium There is no pericardial effusion. Other Information Study Quality: Fair Conclusion Normal biventricular systolic function. Mild RV dilation. Mild LA dilation. Possible bileaflet prolapse of the mitral valve leaflets. Mild to moderate mitral regurgitation. Mild tricuspid regurgitation. Electronically signed by : Jocelyne Hamilton MD 02/15/2024 19:09:47
== END 2024-02-11 23:59 ==
LOC: RT 14:51
PROVIDERS: PCP Family Medicine; Visit Provider Physician Assistant
DX: D45 Polycythemia vera (principal); I51.9 Heart disease, unspecified; Q24.5 Malformation of coronary vessels; K21.9 Gastro-esophageal reflux disease without esophagitis; E78.2 Mixed hyperlipidemia; I10 Essential (primary) hypertension; I51.7 Cardiomegaly
CPT/HCPCS: 93306

== ENCOUNTER 2024-04-14 14:16 | Outpatient (CLI) | payer MEDICARE, OTHER, SELFPAY ==
[2024-04-14 14:43] LABS: Basophils # 0.1 K/mm3 (0-0.2); Basophils % 0.8 % (0.1-2.0); Eosinophils % 0.4 % (0.1-12.0); Hematocrit 44.5 % (42.0-52.0); Hemoglobin 14.7 g/dL (14.1-18.0); Lymphocytes % 12.5 % (10-50); Mean Corpuscular Hemoglobin 37.3 pg (27.0-31.2); Monocytes # 0.3 K/mm3 (0.1-1.0); Monocytes % 4.2 % (1.7-9.3); Neutrophils # 6.5 K/mm3 (1.8-7.8); Neutrophils % 82.1 % (37.0-80.0); Platelet Count 526 K/mm3 (142-424); Red Blood Count 3.94 M/mm3 (4.60-6.20); Red Cell Distribution Width 18.8 % (11.5-17.5); White Blood Count 7.9 K/mm3 (4.8-10.8)
[2024-04-14 15:37] LABS: Alanine Aminotransferase 41 U/L (12-78); Albumin Level 4.4 g/dl (3.5-5.0); Albumin/Globulin Ratio 1.4 (1.1-1.8); Alkaline Phosphatase 76 U/L (38-126); Aspartate Amino Transferase 47 U/L (17-59); Bilirubin,Total 1.1 mg/dl (0.2-1.3); Blood Urea Nitrogen 15 mg/dl (9-20); Calcium 9.1 mg/dl (8.4-10.2); Carbon Dioxide 32 mmol/L (22.0-30.0); Chloride 97 mmol/L (98-107); Estimated Glomerular Filt Rate 66 ml/min (>60); GFR (African American) 80 ML/MIN (>60); Globulin 3.1 g/dL (1.3-3.2); Glucose 112 mg/dl (74-100); Sodium 142 mmol/L (136-145); Total Protein,Serum 7.5 g/dl (6.3-8.2)
[2024-04-14 17:28] LABS: Anion Gap 16.2 mEq/L (5-15); Potassium 3.2 mmoL/L (3.5-5.1)
== END 2024-04-14 23:59 | disposition home or self-care (01) ==
LOC: LAB 14:18
PROVIDERS: PCP Family Medicine; Visit Provider Internal Medicine Medical Oncology
DX: D47.3 Essential (hemorrhagic) thrombocythemia
CPT/HCPCS: 36415; 80053; 85025

== ENCOUNTER 2024-09-28 10:30 | Outpatient (POV) | payer MEDICARE, OTHER, SELFPAY | END 2024-09-28 23:59 | disposition home or self-care (01) | LOC: SC 09-29 08:03 | PROVIDERS: Visit Provider Dermatology | DX: Z00.00 Encounter for general adult medical examination without abnormal findings (principal) ==

== ENCOUNTER 2024-10-14 08:39 | Outpatient (CLI) | payer MEDICARE, OTHER, SELFPAY ==
[2024-10-14 08:57] LABS: Basophils # 0.1 K/mm3 (0-0.2); Basophils % 0.8 % (0.1-2.0); Eosinophils # 0.1 K/mm3 (0.0-0.4); Eosinophils % 0.8 % (0.1-12.0); Hematocrit 40.5 % (42.0-52.0); Lymphocytes # 1.2 K/mm3 (0.7-4.5); Lymphocytes % 16.8 % (10-50); Mean Corpuscular HGB Conc 34.5 g/dL (31.8-35.4); Mean Corpuscular Volume 118.2 fl (80-94); Mean Platelet Volume 8.4 fl (7.4-10.4); Monocytes # 0.5 K/mm3 (0.1-1.0); Monocytes % 6.3 % (1.7-9.3); Neutrophils # 5.4 K/mm3 (1.8-7.8); Neutrophils % 75.3 % (37.0-80.0); Platelet Count 496 K/mm3 (142-424); Red Blood Count 3.43 M/mm3 (4.60-6.20); Red Cell Distribution Width 14.5 % (11.5-17.5); White Blood Count 7.2 K/mm3 (4.8-10.8)
[2024-10-14 08:59] LABS: Mean Corpuscular Hemoglobin 40.8 pg (27.0-31.2)
[2024-10-14 09:39] LABS: Chloride 104 mmol/L (98-107); Sodium 143 mmol/L (136-145)
[2024-10-14 09:40] LABS: Potassium 3.6 mmoL/L (3.5-5.1)
[2024-10-14 09:42] LABS: Alanine Aminotransferase 40 U/L (12-78); Albumin/Globulin Ratio 1.6 (1.1-1.8); Alkaline Phosphatase 56 U/L (38-126); Anion Gap 10.6 mEq/L (5-15); Aspartate Amino Transferase 36 U/L (17-59); Bilirubin,Total 1.3 mg/dl (0.2-1.3); Blood Urea Nitrogen 20 mg/dl (9-20); Carbon Dioxide 32 mmol/L (22.0-30.0); Estimated Glomerular Filt Rate 60 ml/min (>60); GFR (African American) 72 ML/MIN (>60); Globulin 2.5 g/dL (1.3-3.2); Total Protein,Serum 6.5 g/dl (6.3-8.2)
[2024-10-14 09:43] LABS: Glucose 105 mg/dl (74-100)
== END 2024-10-14 23:59 | disposition home or self-care (01) ==
LOC: LAB 08:40
PROVIDERS: PCP Family Medicine; Visit Provider Internal Medicine Medical Oncology
DX: D64.9 Anemia, unspecified (principal); D47.3 Essential (hemorrhagic) thrombocythemia
CPT/HCPCS: 36415; 80053; 85025

== ENCOUNTER 2025-03-10 08:35 | Outpatient (CLI) | payer MEDICARE, OTHER, SELFPAY ==
--- NOTE | 2025-03-10 08:41 | XR_ITS ---
FINAL REPORT CLINICAL HISTORY: rt knee pain FINDINGS: RIGHT KNEE Three views demonstrate no acute fracture or dislocation. There are minimal osteophytes along the undersurface of the patella. Mild vascular calcifications are noted. No acute soft tissue abnormality is seen. IMPRESSION: No acute process. Reviewed, Interpreted and Dictated by Krishna Murphy MD Transcribed by Tanisha Cazares Authenticated and [facility]
== END 2025-03-10 23:59 | disposition home or self-care (01) ==
LOC: RAD 08:36
PROVIDERS: PCP Family Medicine; Visit Provider Physician Assistant
DX: M25.561 Pain in right knee (principal)
CPT/HCPCS: 73562

== ENCOUNTER 2025-04-14 08:48 | Outpatient (CLI) | payer MEDICARE, OTHER, SELFPAY ==
[2025-04-14 09:04] LABS: Basophils # 0.1 K/mm3 (0-0.2); Eosinophils # 0.1 Kmm3 (0.0-0.4); Eosinophils % 1.2 % (0.1-12.0); Hematocrit 38.2 % (42.0-52.0); Immature Granulocytes # 0.03 10^3uL; Immature Granulocytes % 0.6 %; Lymphocytes # 1.2 K/mm3 (0.7-4.5); Lymphocytes % 23.5 % (10-50); Mean Corpuscular HGB Conc 36.6 g/dL (31.8-35.4); Mean Corpuscular Volume 115.8 fl (80-94); Mean Platelet Volume 8.9 fl (7.4-10.4); Monocytes # 0.5 K/mm3 (0.1-1.0); Monocytes % 9.1 % (1.7-9.3); Neutrophils # 3.3 K/mm3 (1.8-7.8); Neutrophils % 64.6 % (37.0-80.0); Nucleated Red Blood Cells # 0 10^3/uL; Nucleated Red Blood Cells % 0 %; Platelet Count 374 K/mm3 (142-424); Red Cell Distribution Width 12.9 % (11.5-17.5); Red Cell Distribution Width-SD 54.7 fL
[2025-04-14 09:07] LABS: Mean Corpuscular Hemoglobin 42.4 pg (27.0-31.2)
[2025-04-14 10:24] LABS: Alanine Aminotransferase 41 U/L (12-78); Albumin Level 4.2 g/dl (3.5-5.0); Albumin/Globulin Ratio 1.8 (1.1-1.8); Alkaline Phosphatase 53 U/L (38-126); Anion Gap 10.7 mEq/L (5-15); Aspartate Amino Transferase 41 U/L (17-59); Bilirubin,Total 0.9 mg/dl (0.2-1.3); Blood Urea Nitrogen 17 mg/dl (9-20); Calcium 8.8 mg/dl (8.4-10.2); Carbon Dioxide 32 mmol/L (22.0-30.0); Chloride 101 mmol/L (98-107); Estimated Glomerular Filt Rate 66 ml/min (>60); GFR (African American) 79 ML/MIN (>60); Globulin 2.4 g/dL (1.3-3.2); Glucose 98 mg/dl (74-100); Potassium 3.7 mmoL/L (3.5-5.1); Sodium 140 mmol/L (136-145); Total Protein,Serum 6.6 g/dl (6.3-8.2)
== END 2025-04-14 23:59 | disposition home or self-care (01) ==
LOC: LAB 08:49
PROVIDERS: PCP Family Medicine; Visit Provider Internal Medicine Medical Oncology
DX: D64.9 Anemia, unspecified (principal)
CPT/HCPCS: 36415; 80053; 85025

== ENCOUNTER 2025-05-31 11:00 | Outpatient (CLI) | payer MEDICARE, OTHER, SELFPAY ==
--- OUTSIDE RECORDS SUMMARY | 2025-05-31 11:08 | XMS_ITS | Clinical Summary ---
Author Organization Healthcare Address [address] [place] [address] Care Team Providers Care Gold Miner Name Role Phone Unavailable Primary Care Provider Unavailabl e Social History Tobacco Use Types Packs/Day Years Used Date Smoking Tobacco: Never Alcohol Use Standard Drinks/Week Comments No 0 (1 standard drink = 0.6 oz pur e alcohol) Sex and Gender Information Value Date Recorded Sex Assigned at Not on file Legal Sex Male 8:58 PM EDT Gender Identity Not on file Sexual Orientation Not on file Last Filed Vital Signs Vital Sign Reading Time Taken Comments Blood Pressure - - Pulse - - Temperature - - Respiratory Rate - - Oxygen Saturation - - Inhaled Oxygen Concentration - - Weight 83.9 kg (185 lb 0.2 oz) 08/10/2014 2:11 P M EDT Height 172.7 cm (5' 8 ) 08/10/2014 2:11 PM EDT Body Mass Index 28.13 08/10/2014 2:11 PM EDT Plan of Treatment Not on file
[2025-05-31 12:07] LABS: Alanine Aminotransferase 27 U/L (12-78); Albumin Level 4.4 g/dl (3.5-5.0); Alkaline Phosphatase 59 U/L (38-126); Aspartate Amino Transferase 36 U/L (17-59); Bilirubin,Direct 0.1 mg/dl (0.0-0.4); Bilirubin,Indirect 0.6 mg/dL (0.0-0.9); Bilirubin,Total 0.7 mg/dl (0.2-1.3); Bilirubin,Unconjugated 0.6 mg/dL (0.0-1.1); Blood Urea Nitrogen 14 mg/dl (9-20); Cholesterol 90 mg/dl (140-200); Creatinine,Serum 1.00 mg/dl (0.66-1.25); Estimated Glomerular Filt Rate 73 ml/min (>60); GFR (African American) 89 ML/MIN (>60); HDL Cholesterol 24 mg/dl (40-60); Total Protein,Serum 7.0 g/dl (6.3-8.2); Triglycerides 119 mg/dl (30-150)
== END 2025-05-31 23:59 | disposition home or self-care (01) ==
LOC: LAB 11:02
PROVIDERS: PCP Family Medicine; Visit Provider Physician Assistant
DX: I10 Essential (primary) hypertension (principal); E78.2 Mixed hyperlipidemia
CPT/HCPCS: 36415; 80061; 80076; 82565; 84520

== ENCOUNTER 2025-06-07 13:48 | Outpatient (CLI) | payer MEDICARE, OTHER, SELFPAY ==
--- NOTE | 2025-06-07 14:00 | CT_ITS ---
PROCEDURE INFORMATION: Exam: CT Head With Contrast Exam date and time: 06/07/2025 2:04 PM Age: 75 years old Clinical indication: Other: Headaches TECHNIQUE: Imaging protocol: Computed tomography of the head with intravenous contrast. Radiation optimization: All CT scans at this facility use at least one of these dose optimization techniques: automated exposure control; mA and/or kV adjustment per patient size (includes targeted exams where dose is matched to clinical indication); or iterative reconstruction. Contrast material: ISOVUE; Contrast volume: 100 ml; Contrast route: IV; COMPARISON: CT - SINUSWO CT sinus wo con 06/21/2019 2:29 PM FINDINGS: Brain: Unremarkable white matter. No mass effect. No abnormal enhancing lesions. Cerebral ventricles: Unremarkable. No ventriculomegaly. Bones/joints: Unremarkable. No acute fracture. Paranasal sinuses: Opacification and layering fluid throughout the right sphenoid sinus. Remainder of the paranasal sinuses are clear. Mastoid air cells: Visualized mastoid air cells are well aerated. Orbits: Unremarkable. Soft tissues: Unremarkable. IMPRESSION: 1. Opacification and layering fluid throughout the right sphenoid sinus. Consistent with sinusitis. 2. No acute or concerning intracranial pathology.
--- OUTSIDE RECORDS SUMMARY | 2025-06-07 14:01 | XMS_ITS | Clinical Summary ---
Author Organization Healthcare Address [address] [place] [address] Care Team Providers Care Warehouse Pricing And Inventory Clerk Name Role Phone Unavailable Primary Care Provider [...]
[2025-06-07] MEDS: SODIUM CHLORIDE 0.9% 10ML SYR (RAD ONLY) 10 ML IV (14:21)
[2025-06-07] MEDS: IOPAMIDOL-370 (76%);100ML BOTTLE 100 ML IV (14:21)
== END 2025-06-07 23:59 | disposition home or self-care (01) ==
LOC: RAD 13:49
PROVIDERS: PCP Family Medicine; Visit Provider Physician Assistant
DX: R90.89 Other abnormal findings on diagnostic imaging of central nervous system (principal); I34.0 Nonrheumatic mitral (valve) insufficiency; I11.9 Hypertensive heart disease without heart failure; Q24.5 Malformation of coronary vessels; K21.9 Gastro-esophageal reflux disease without esophagitis; D45 Polycythemia vera; E78.5 Hyperlipidemia, unspecified; R55 Syncope and collapse; R51.9 Headache, unspecified
CPT/HCPCS: 70460; Q9967

== ENCOUNTER 2025-07-12 05:05 | Inpatient (IN) | payer MEDICARE, OTHER, SELFPAY ==
[2025-07-12] VITALS (12 sets, daily range): BP systolic 139–174; BP diastolic 77–94; PULSE 64–92; RESP 13–23; TEMP 36.4–36.8; O2SAT 92–99; BMI 28.1; BMI 27.8
--- OUTSIDE RECORDS SUMMARY | 2025-07-12 05:15 | XMS_ITS | Clinical Summary ---
Author Organization [facility] Address [address] [place] [address] Care Team Providers Care Rn Concurrent Review Name Role Phone Alden Hidalgo MD Primary Care Provider + Allergies No known active allergies Medications esomeprazole (nexIUM) 20 MG capsule Take 20 mg by mouth Every Morning Before Breakfast. Active raNITIdine (ZANTAC) 150 MG tablet Take 150 mg by mouth 2 (Two) Times a Day. Active furosemide (LASIX) 20 MG tablet Take 20 mg by mouth 2 (Two) Times a Day. Active losartan-hydroc hlorothiazide (HYZAAR) 50-12.5 MG per tablet Take 1 tablet by mouth Daily. Active acetaminophen (TYLENOL) 325 MG tablet Take 650 mg by mouth Every 6 (Six) Hours As Needed for Mild Pain . Active levothyroxine sodium (TIROSINT) 88 MCG capsule Take 150 mcg by mouth Daily. Active atenolol (TENORMIN) 50 MG tablet Take 50 mg by mouth Daily. Active montelukast (SINGULAIR) 10 MG tablet Take 10 mg by mouth Every Night. Active fluticasone (FLONASE) 50 MCG/ACT nasal spray 2 sprays into the nostril(s) as directed by provider Daily. Active omeprazole (priLOSEC) 20 MG capsule Take 20 mg by mouth Daily. Active atorvastatin (LIPITOR) 10 MG tablet Take 10 mg by mouth Daily. Active aspirin 81 MG EC tablet Take 81 mg by mouth Daily. Active Active Problems No known active problems Family History Medical History Relation Name Comments No Known Problems Father No Known Problems Mother Relation Name Status Comments Father Mother Social History Tobacco Use Types Packs/Day Years Used Date Smoking Tobacco: Never Smokeless Tobacco: Never Alcohol Use Standard Drinks/Week Comments No 0 (1 standard drink = 0.6 oz pur e alcohol) Abuse Screen Answer Date Recorded Unsafe at Home or Work/School Not on file Feels Threatened by Someone? Not on file 10/2023 Does Anyone Keep You from Co ntacting Others or Doint Things Outside the Home? Not on file 09/04/2023 Physical Sign of Abuse Present Not on file 1 Housing Stability Answer Date Recorded Current Living Arrangements Not on file 08/24 Potentially Unsafe Housing Conditions Not on jackson e 09/04/2023 Family and Community Support Answer David e Recorded Help with Day-to-Day Activities Not on file 09/04/2023 Lonely or Isolated Not on file 09/04/2023 Employment Answer Date Recorded Do you want help finding or keeping work or a kaleb b? Not on file 09/04/2023 Disabilities Answer Date Recorded Concentrating, Remembering, or Making Decisions Difficulty Not on file 09/04/2023 Doing Errands Independently Difficulty Not on fi le 09/04/2023 Education Answer Date Recorded Help with school or training? Not on file Preferred Language Not on file 09/04/2023 Sex and Gender Information Value Date Recorded Sex Assigned at Not on file Legal Sex Male 10:32 AM EDT Gender Identity Not on file Sexual Orientation Not on file Last Filed Vital Signs Vital Sign Reading Time Taken Comments Blood Pressure - - Pulse - - Temperature 36.3 C (97.3 F) 05/07/2019 9:37 AM EDT Respiratory Rate - - Oxygen Saturation - - Inhaled Oxygen Concentration - - Weight 84.4 kg (186 lb) 05/07/2019 9:37 AM EDT Height 172.7 cm (5' 8 ) 05/07/2019 9:37 AM EDT Body Mass Index 28.28 05/07/2019 9:37 AM EDT Plan of Treatment Health Maintenance Due Date Last Done Comments TDAP/TD VACCINES (1 - Tdap) 1971 COLOGUARD 1997 COLON CANCER SCREENING 5 YEAR SIGMOIDOSCOPY 1997 COLONOSCOPY 1997 COL[address]AL CANCER SCREENING 1997 CT COLONOGRAPHY 1997 FECAL OCCULT BLOOD TEST 1997 FIT Testing (1 year) 1997 Pneumococcal Vaccine 50+ (1 of 1 - PCV) 2002 ZOSTER VACCINE (1 of 2) 2002 AAA SCREEN ONCE 2017 ANNUAL PHYSICAL 09/03/2018 HEPATITIS C SCREENING 09/03/2018 COVID-19 Vaccine (1 - 2023- season) 2024 INFLUENZA VACCINE 08/24/2025 Insurance [facility] MEDICARE ADVANTAGE Care Teams Rn Concurrent Review Relationship Specialty Start Date End Date Alden Hidalgo MD PCP - General Family Medicine 08/21/18
--- OUTSIDE RECORDS SUMMARY | 2025-07-12 05:15 | XMS_ITS | Clinical Summary ---
Author Organization Healthcare Address [address] [place] [address] Care Team Providers Care Plant Operator Name Role Phone Unavailable Primary Care Provider [...]
--- NOTE | 2025-07-12 05:24 | ED_ITS ---
Discharge Plan Disposition Patient Disposition: Admitted Condition: Fair Clinical Impressions Clinical Impression: Partial small bowel obstruction, Abdominal pain, Hematuria, Pancreatitis, Hyperbilirubinemia Discharge ED Provider: Hans Ortiz Adult HPI <Leydi David MD - Last Filed: 07/12/25 07:08> General Chief complaint: Abdominal Pain Stated complaint: abd pain Time Seen by Provider: 07/12/25 05:16 Mode of Arrival: Ambulatory Source of Information: Patient Description of Symptoms (Recalled from ER Triage Doc. by RN): abdominal pain since 2099 yesterday Denies vomiting or diarrhea History of Present Illness HPI narrative: 75-year-old male with history of hernia repair with mesh as well as reportedly 6 feet of colon resection and cholecystectomy in 2013 presents to the ER with complaints of 8 hours of abdominal pain. Patient reports last night around 9 PM he started having mid upper abdominal pain. He felt like something was moving through his intestines but then it stopped in the middle and he has had discomfort and pain at that area since that time. He reports he does have history of acid reflux and takes medications for his stomach which he did take last night. Review of records demonstrates he takes omeprazole. He reports he had eaten dinner approximately 3 hours prior to his pain starting but was eating soft peppermints until the time his pain started. He has not had any bowel movement since the time the pain started but had a normal bowel movement yesterday. He denies any nausea or vomiting but states he is belching more than normal, he has no chest pain or difficulty breathing, no numbness, tingling, or weakness. He presented to the ER independently and ambulated into the ER. He reports the pain 8 out of 10 and states it is nonradiating, it does not go through to his back or elsewhere in the abdomen. He denies any alcohol use and reports no history of problems with his pancreas. Patient denies fevers, difficulty breathing, chest pain, vomiting, diarrhea, dysuria, or hematuria. No other complaints or concerns. Related Data Home Medications ?Medication ?Instructions ?Recorded ?Confirmed atorvastatin 10 mg tablet 10 mg PO HS Cholesterol 02/2306/27/25 multivitamin 1 tab PO DAILY Supplement 06/27/25 acetaminophen 500 mg tablet 500 mg PO Q6H PRN pain 06/27/25 (Tylenol Extra Strength) aspirin 81 mg tablet,delayed 81 mg PO DAILY Blood thin ner 08/11/18 06/27/25 release (Adult Low Dose Aspirin) omeprazole 20 mg capsule,delayed 20 mg PO BID GERD 09/1206/27/25 release levothyroxine 100 mcg tablet 100 mcg PO DAILY Suppleme nt 01/03/22 06/27/25 fluticasone propionate 50 intranasal 06/06/22 06/27/25 mcg/actuation nasal spray,suspension azelastine 137 mcg (0.1 %) nasal intranasal 06/27/25 0 06/27/25 spray Previous Rx's ?Medication ?Instructions ?Recorded hydroxyurea 500 mg capsule See Rx Instructions .Route 11/23/24 .COMPLEX #180 caps atenolol 25 mg tablet See Rx Instructions .Route 0 02/21/25 .COMPLEX #90 tabs hydrochlorothiazide 12.5 mg tablet 12.5 mg PO .COMPLEX #30 tabs 06/14/25 losartan 50 mg tablet 50 mg PO DAILY #30 tabs 05/25 01/18 levocetirizine 5 mg tablet (Xyzal) 5 mg PO DAILY #30 t abs 06/27/25 Allergies Allergy/AdvReac Type Severity Reaction Status Date / Time No Known Allergies Allergy Verified 06/27/25 14:54 [facility] <Leydi David MD - Last Filed: 07/12/25 07:08> [facility] Disclaimer: The information contained in this section may have been updated after the patient was seen, as this information can be updated by other users. Medical History (Updated 07/12/25 @ 07:00 by Leydi David MD) Impacted cerumen, left ear Chronic sinusitis Mixed hyperlipidemia Idiopathic thrombocytopenic purpura (ITP) Bradycardia Diastolic dysfunction Myocardial bridge Surgical History History of shoulder surgery H/O hernia repair History of colon resection Family History Other No significant family history Social History Smoking Status: Never smoker alcohol intake: never substance use type: denies use current occupational status: retired Travel in the last 8 weeks?: None household members: none housing: house caffeine: Yes Have you lived/traveled outside [place] in past 30 days?: No Contact w/someone who lives/traveled outside US past 30 days?: No Exposure to someone with infectious disease in past 14 days?: No Do you have a fever (greater than 100.4 F or 38 C)?: No Have you tested positive for COVID-19?: No Exposed to someone with COVID-19 in past 14 days?: No Do you have a sore throat?: No Do you have a cough?: No Do you have any weakness?: No Do you have any diarrhea?: No Are you experiencing any unusual bleeding?: No Do you have any muscle aches/pain?: No Do you have any abdominal pain?: Yes Are you experiencing loss of taste or smell?: No Other Medical History Have you received the Flu Vaccine for this season: No Have you received the Pneumonia Vaccine: Yes <Leydi David MD - Last Filed: 07/12/25 07:08> ROS Obtained: Yes Systems reviewed as appropriate & no additional complaints except as documented Per HPI Physical Exam <Leydi David MD - Last Filed: 07/12/25 07:08> General General appearance: alert and in no apparent distress Head Head exam: atraumatic and normocephalic Eye Eye exam: Present PERRL and EOMI ENT ENT exam: Present mucous membranes moist Neck Neck exam: Present normal inspection and full ROM Chest Chest inspection: Present symmetric chest wall rise Respiratory Respiratory exam: Present normal lung sounds bilaterally; Absent respiratory distress, wheezes or stridor Cardiovascular Cardiovascular exam: Present regular rate and normal rhythm Abdominal Exam Abdominal exam: Present soft and tenderness (Epigastric and mid abdomen); Absent distention, guarding, rebound, mass or hernia Extremities Exam Extremities exam: Present full ROM; Absent edema Neurological Exam Neurological exam: Present alert and oriented X3; Absent motor sensory deficit Psychiatric Psychiatric exam: Present normal affect and normal mood Skin Skin exam: Present warm and dry Medical Decision Making <Leydi David MD - Last Filed: 07/12/25 07:08> Medical Records Medical records reviewed: Yes I reviewed the patient's medical records. Screening: Per USPSTF and CDC recommendations, given the prevalence of disease in our region, it is our hospital?s policy to screen for HIV and viral Hepatitis for all patients aged 18 and over and those with ongoing risk factors. MR Comment: Most recent visit within our system at the beginning of June with ENT for chronic sinusitis and was started on Xyzal [place] Inquiry Pt receiving controlled substance: No Vital Signs: 07/12/25 05:11 07/12/25 05:15 07/12/25 05:30 Temperature 98.3 F Temperature Source Oral Pulse Rate 82 76 Pulse Rate [Right Radial] 79 Respiratory Rate 20 Blood Pressure 139/92 H 158/79 H Blood Pressure [Right Arm] 139/92 H Blood Pressure Mean Blood Pressure Mean [Right Arm] 107 Blood Pressure Source [Right Arm] Automatic Cuff 02 Sat by Pulse Oximetry 99 99 93 L Oxygen Delivery Method Room Air 07/12/25 06:29 07/12/25 06:29 07/12/25 07:00 Temperature Temperature Source Pulse Rate 82 Pulse Rate [Right Radial] Respiratory Rate 19 23 Blood Pressure 158/77 H 165/83 H Blood Pressure [Right Arm] Blood Pressure Mean 104 Blood Pressure Mean [Right Arm] Blood Pressure Source [Right Arm] 02 Sat by Pulse Oximetry 94 L Oxygen Delivery Method Room Air Lab Data Lab Results 07/12/25 05:08: Urine Color Yellow, Urine Appearance Clear, Urine pH 6.0, Ur Specific [place] >= 1.030, Urine Protein Trace, Urine Glucose (UA) Negative, Urine Ketones Negative, Urine Blood Trace-i, Urine Nitrate Negative, Urine Bilirubin Negative, Urine Urobilinogen 1.0, Ur Leukocyte Esterase Negative, Urine WBC 3-5, Ur Squamous Epith Cells Occasional, Urine Bacteria 1+, Urine Mucus 2+ 07/12/25 05:15: WBC 11.1 H, RBC 3.58 L, Hgb 15.9, Hct 43.0, MCV 120.1 H, MCH 44.4 H*, MCHC 37.0 H, RDW 12.3, Plt Count 523 H, MPV 9.4, Neut % (Auto) 82.6 H, Lymph % (Auto) 10.5, [place] % (Auto) 5.2, Eos % (Auto) 0.4, Baso % (Auto) 0.5, N eut # (Auto) 9.2 H, Lymph # (Auto) 1.2, [place] # (Auto) 0.6, Eos # (Auto) 0.0, Baso # (Auto) 0.1, PT 11.9, INR 1.08, Sodium 146 H, Potassium 3.5, Chloride 107, Carbon Dioxide 28, Anion Gap 14.5, BUN 16, Creatinine 1.10, Estimated Creat Clear 71, Estimated GFR 66, Est GFR ( Amer) 79, Glucose 120 H, Lactate 1.9, Calcium 9.3, Total Bilirubin 1.7 H, Direct Bilirubin 0.2, AST 43, ALT 35, Alkaline Phosphatase 87, Troponin I < 0.01, Total Protein 8.1, Albumin 4.9, Globulin 3.2, Albumin/Globulin Ratio 1.5, Lipase 355 H, HIV Ag/Ab Combo Qual Negative 07/12/25 05:15 07/12/25 05:15 Orders (Tests/Meds): ED MEDICATIONS Generic Name Dose Route Start Last Admin Trade Name Freq PRN Reason Stop Dose Admin Piperacillin Sod/Tazobactam 100 mls @ 200 mls/hr 07/12/25 06:15 07/12/25 06:56 Sod 4.5 gm/ Sodium Chloride IV 07/22/25 06:14 0 mls/hr Q8H RAY Infusion Sodium Chloride 25 ml 07/12/25 07:56 Sodium Chloride 0.9% 25ml Bag IV 08/11/25 07:55 NEEDED PRN for Use with IV Promethazine Discontinued Medications Generic Name Dose Route Start Last Admin Trade Name Freq PRN Reason Stop Dose Admin Hydromorphone HCl 0.5 mg 07/12/25 06:42 07/12/25 06:47 Hydromorphone 2mg/Ml Syringe IV 07/12/25 06:43 0.5 mg ONCE ONE Administration Lactated Ringer's 1,000 mls @ 999 mls/hr 07/12/25 05:22 07/12/25 06:48 Lactated Ringer's 1000 Ml Bag IV 07/12/25 06:22 Infused .Q1H1M ONE Infusion Iopamidol 80 ml 07/12/25 06:04 07/12/25 06:05 Iopamidol-370 (76%);100ml Bottle IV 07/12/25 06:05 80 ml ONCE ONE Administration Morphine Sulfate 4 mg 07/12/25 05:22 07/12/25 05:43 Morphine 4mg/Ml Syringe IV 07/12/25 05:23 4 mg ONCE ONE Administration Ondansetron HCl 4 mg 07/12/25 05:22 07/12/25 05:44 Ondansetron 4mg/2ml Vial IV 07/12/25 05:23 4 mg ONCE ONE Administration Ondansetron HCl 4 mg 07/12/25 06:50 07/12/25 06:52 Ondansetron 4mg/2ml Vial IV 07/12/25 06:51 4 mg ONCE ONE Administration Promethazine HCl 25 mg 07/12/25 07:57 Promethazine Hcl 25mg/Ml 1ml Vial IV 07/12/25 07:58 ONCE ONE Sodium Chloride 10 ml 07/12/25 06:04 07/12/25 06:05 Sodium Chloride 0.9% 10ml Syr (Rad Only) IV 07/12/25 06:05 10 ml ONCE ONE Administration ORDERS Category Date Time Status CT angio abdomen pelvis Stat Cat Scan 07/12/25 05:34 Completed CXR --portable [XR chest portable] Stat Exams 07/12/25 05:24 Completed CXR --portable [XR chest portable] Stat Exams 07/12/25 06:42 Taken KUB (single view) [XR KUB] Stat Exams 07/12/25 06:09 Completed Bilirubin,Direct Stat Lab 07/12/25 05:15 Completed Complete Blood Count Auto Diff Stat Lab 07/12/25 05:15 Completed Comprehensive Metabolic Panel Stat Lab 07/12/25 05:15 Completed HIV Combo Routine Lab 07/12/25 05:15 Completed Hepatitis C Ab Qual. W/ RFX Routine Lab 07/12/25 05:15 Received Lactic Acid Stat Lab 07/12/25 05:15 Completed Lipase Stat Lab 07/12/25 05:15 Completed Prothrombin Time INR Stat Lab 07/12/25 05:15 Completed Troponin I Q3H Lab 07/12/25 08:30 Ordered Troponin I Q3H Lab 07/12/25 11:30 Ordered Troponin I Stat Lab 07/12/25 05:15 Completed Urinalysis and Microscopic Stat Lab 07/12/25 05:08 Completed ECG Request Stat Y 07/12/25 06:46 Ordered Medical Decision Narrative: In summary, this 75-year-old male with comorbidities described in the HPI presents to the emergency department today with mid abdominal pain. On initial evaluation patient is hemodynamically stable, afebrile, cardiopulmonary exam benign, no peripheral edema, GCS 15, patient has mild-moderate epigastric to mid abdominal tenderness with no evidence of hernia or mass appreciated on exam, no rebound or guarding, no peritonitic findings. Differential diagnosis includes but is not limited to atypical presentation of ACS, hernia, bowel obstruction, pancreatitis, mesenteric ischemia, viral syndrome, mesenteric adenitis, also considered appendicitis, patient has already had cholecystectomy which rules out cholecystitis, among others. Based on these concerns, I ordered serum labs, cardiac workup, CT imaging with angiography. ECG personally interpreted demonstrates normal sinus rhythm, rate 68, normal axis, normal IL and QTc, Q waves and inverted T waves in the inferior leads likely indicate previous inferior ischemia but patient has no evidence of STEMI. Patient received IV fluids, morphine, Zofran for treatment. Labs personally reviewed demonstrate UA negative for findings of infection, trace blood Which can be followed up outpatient, I have recommended the patient be reevaluated by his PCP for this. Patient has mild leukocytosis with WBC 11.1, no anemia, MCH elevated consistent with previous, thrombocythemia which he has had previously, PT/INR normal, CMP nonactionable but patient does have indirect hyperbilirubinemia, no transaminitis, undetectable troponin reassuring against cardiac etiology. Lipase elevated at 355 likely indicative of pancreatitis. Lactate normal. XR personally interpreted demonstrates no acute thoracic abnormality, see radiology read for final dictation. CT imaging personally interpreted demonstrate evidence of small bowel obstruction, stomach distended and multiple air-fluid levels with distended loops of small bowel. No evidence of mesenteric ischemia. See radiology read for final interpretation which is pending at this time. Based on my personal interpretation of CT, NG tube was placed for gastric decompression since patient has a large, distended stomach. He was also given a dose of IV Zosyn. KUB personally interpreted after NGT placement demonstrates good positioning. NGT placed to LIWS. Discussed this case with [facility]ica pharmacist Ed to review compatibility of our piperacillin?tazobactam formula with lactated Ringer's because her compatibility chart in the ER states no data . He confirmed that it is compatible with LR at the Y site in the tubing. I appreciate his recommendations. A while after NG tube had been placed patient was complaining of additional pain including into the chest. His initial EKG was very reassuring, repeat ECG is ordered and chest x-ray is being added post NGT placement to ensure no evidence of perforation though the tube appears to be well-placed in the stomach and is suction and gastric contents at this time. Dilaudid ordered. Repeat ECG personally interpreted demonstrates normal sinus rhythm, rate 75, normal axis, normal IL and QTc, no dynamic changes, no STEMI. Patient had additional nausea and did have an episode of nonbloody, nonbilious emesis. Additional Zofran administered. No longer having emesis. More comfortable at this time. Radiology read resulted and is in agreement with my read and suggests partial small bowel obstruction. I spoke with general surgery on-call Dr. Chong. He agrees with management at this point and requested the patient be admitted to the hospitalist service for conservative management hoping to be able to avoid surgical intervention. Post NGT chest x-ray is pending at this time. Patient handed off to Dr. Ortiz in stable condition pending this chest x-ray and will likely be admitted to the hospitalist service once we are sure there is no pneumomediastinum or evidence of perforation from the NG tube for which I have low suspicion. <Hans Ortiz, DO - Last Filed: 07/12/25 08:05> Vital Signs: 07/12/25 05:11 07/12/25 05:15 07/12/25 05:30 Temperature 98.3 F Temperature Source Oral Pulse Rate 82 76 Pulse Rate [Right Radial] 79 Respiratory Rate 20 Blood Pressure 139/92 H 158/79 H Blood Pressure [Right Arm] 139/92 H Blood Pressure Mean Blood Pressure Mean [Right Arm] 107 Blood Pressure Source [Right Arm] Automatic Cuff 02 Sat by Pulse Oximetry 99 99 93 L Oxygen Delivery Method Room Air 07/12/25 06:29 07/12/25 06:29 07/12/25 07:00 Temperature Temperature Source Pulse Rate 82 Pulse Rate [Right Radial] Respiratory Rate 19 23 Blood Pressure 158/77 H 165/83 H Blood Pressure [Right Arm] Blood Pressure Mean 104 Blood Pressure Mean [Right Arm] Blood Pressure Source [Right Arm] 02 Sat by Pulse Oximetry 94 L Oxygen Delivery Method Room Air Lab Data Lab Results 07/12/25 05:08: Urine Color Yellow, Urine Appearance Clear, Urine pH 6.0, Ur Specific [place] >= 1.030, Urine Protein Trace, Urine Glucose (UA) Negative, Urine Ketones Negative, Urine Blood Trace-i, Urine Nitrate Negative, Urine Bilirubin Negative, Urine Urobilinogen 1.0, Ur Leukocyte Esterase Negative, Urine WBC 3-5, Ur Squamous Epith Cells Occasional, Urine Bacteria 1+, Urine Mucus 2+ 07/12/25 05:15: WBC 11.1 H, RBC 3.58 L, Hgb 15.9, Hct 43.0, MCV 120.1 H, MCH 44.4 H*, MCHC 37.0 H, RDW 12.3, Plt Count 523 H, MPV 9.4, Neut % (Auto) 82.6 H, Lymph % (Auto) 10.5, [place] % (Auto) 5.2, Eos % (Auto) 0.4, Baso % (Auto) 0.5, N eut # (Auto) 9.2 H, Lymph # (Auto) 1.2, [place] # (Auto) 0.6, Eos # (Auto) 0.0, Baso # (Auto) 0.1, PT 11.9, INR 1.08, Sodium 146 H, Potassium 3.5, Chloride 107, Carbon Dioxide 28, Anion Gap 14.5, BUN 16, Creatinine 1.10, Estimated Creat Clear 71, Estimated GFR 66, Est GFR ( Amer) 79, Glucose 120 H, Lactate 1.9, Calcium 9.3, Total Bilirubin 1.7 H, Direct Bilirubin 0.2, AST 43, ALT 35, Alkaline Phosphatase 87, Troponin I < 0.01, Total Protein 8.1, Albumin 4.9, Globulin 3.2, Albumin/Globulin Ratio 1.5, Lipase 355 H, HIV Ag/Ab Combo Qual Negative Orders (Tests/Meds): ED MEDICATIONS Generic Name Dose Route Start Last Admin Trade Name Freq PRN Reason Stop Dose Admin Piperacillin Sod/Tazobactam 100 mls @ 200 mls/hr 07/12/25 06:15 07/12/25 06:56 Sod 4.5 gm/ Sodium Chloride IV 07/22/25 06:14 0 mls/hr Q8H RAY Infusion Sodium Chloride 25 ml 07/12/25 07:56 Sodium Chloride 0.9% 25ml Bag IV 08/11/25 07:55 NEEDED PRN for Use with IV Promethazine Discontinued Medications Generic Name Dose Route Start Last Admin Trade Name Freq PRN Reason Stop Dose Admin Hydromorphone HCl 0.5 mg 07/12/25 06:42 07/12/25 06:47 Hydromorphone 2mg/Ml Syringe IV 07/12/25 06:43 0.5 mg ONCE ONE Administration Lactated Ringer's 1,000 mls @ 999 mls/hr 07/12/25 05:22 07/12/25 06:48 Lactated Ringer's 1000 Ml Bag IV 07/12/25 06:22 Infused .Q1H1M ONE Infusion Iopamidol 80 ml 07/12/25 06:04 07/12/25 06:05 Iopamidol-370 (76%);100ml Bottle IV 07/12/25 06:05 80 ml ONCE ONE Administration Morphine Sulfate 4 mg 07/12/25 05:22 07/12/25 05:43 Morphine 4mg/Ml Syringe IV 07/12/25 05:23 4 mg ONCE ONE Administration Ondansetron HCl 4 mg 07/12/25 05:22 07/12/25 05:44 Ondansetron 4mg/2ml Vial IV 07/12/25 05:23 4 mg ONCE ONE Administration Ondansetron HCl 4 mg 07/12/25 06:50 07/12/25 06:52 Ondansetron 4mg/2ml Vial IV 07/12/25 06:51 4 mg ONCE ONE Administration Promethazine HCl 25 mg 07/12/25 07:57 Promethazine Hcl 25mg/Ml 1ml Vial IV 07/12/25 07:58 ONCE ONE Sodium Chloride 10 ml 07/12/25 06:04 07/12/25 06:05 Sodium Chloride 0.9% 10ml Syr (Rad Only) IV 07/12/25 06:05 10 ml ONCE ONE Administration ORDERS Category Date Time Status CT angio abdomen pelvis Stat Cat Scan 07/12/25 05:34 Completed CXR --portable [XR chest portable] Stat Exams 07/12/25 05:24 Completed CXR --portable [XR chest portable] Stat Exams 07/12/25 06:42 Taken KUB (single view) [XR KUB] Stat Exams 07/12/25 06:09 Completed Bilirubin,Direct Stat Lab 07/12/25 05:15 Completed Complete Blood Count Auto Diff Stat Lab 07/12/25 05:15 Completed Comprehensive Metabolic Panel Stat Lab 07/12/25 05:15 Completed HIV Combo Routine Lab 07/12/25 05:15 Completed Hepatitis C Ab Qual. W/ RFX Routine Lab 07/12/25 05:15 Received Lactic Acid Stat Lab 07/12/25 05:15 Completed Lipase Stat Lab 07/12/25 05:15 Completed Prothrombin Time INR Stat Lab 07/12/25 05:15 Completed Troponin I Q3H Lab 07/12/25 08:30 Ordered Troponin I Q3H Lab 07/12/25 11:30 Ordered Troponin I Stat Lab 07/12/25 05:15 Completed Urinalysis and Microscopic Stat Lab 07/12/25 05:08 Completed ECG Request Stat Y 07/12/25 06:46 Ordered Medical Decision Narrative: In summary, this 75-year-old male with comorbidities described in the HPI presents to the emergency department today with mid abdominal pain. On initial evaluation patient is hemodynamically stable, afebrile, cardiopulmonary exam benign, no peripheral edema, GCS 15, patient has mild-moderate epigastric to mid abdominal tenderness with no evidence of hernia or mass appreciated on exam, no rebound or guarding, no peritonitic findings. Differential diagnosis includes but is not limited to atypical presentation of ACS, hernia, bowel obstruction, pancreatitis, mesenteric ischemia, viral syndrome, mesenteric adenitis, also considered appendicitis, patient has already had cholecystectomy which rules out cholecystitis, among others. Based on these concerns, I ordered serum labs, cardiac workup, CT imaging with angiography. ECG personally interpreted demonstrates normal sinus rhythm, rate 68, normal axis, normal IL and QTc, Q waves and inverted T waves in the inferior leads likely indicate previous inferior ischemia but patient has no evidence of STEMI. Patient received IV fluids, morphine, Zofran for treatment. Labs personally reviewed demonstrate UA negative for findings of infection, trace blood Which can be followed up outpatient, I have recommended the patient be reevaluated by his PCP for this. Patient has mild leukocytosis with WBC 11.1, no anemia, MCH elevated consistent with previous, thrombocythemia which he has had previously, PT/INR normal, CMP nonactionable but patient does have indirect hyperbilirubinemia, no transaminitis, undetectable troponin reassuring against cardiac etiology. Lipase elevated at 355 likely indicative of pancreatitis. Lactate normal. XR personally interpreted demonstrates no acute thoracic abnormality, see radiology read for final dictation. CT imaging personally interpreted demonstrate evidence of small bowel obstruction, stomach distended and multiple air-fluid levels with distended loops of small bowel. No evidence of mesenteric ischemia. See radiology read for final interpretation which is pending at this time. Based on my personal interpretation of CT, NG tube was placed for gastric decompression since patient has a large, distended stomach. He was also given a dose of IV Zosyn. KUB personally interpreted after NGT placement demonstrates good positioning. NGT placed to LIWS. Discussed this case with [facility]ica pharmacist Ed to review compatibility of our piperacillin?tazobactam formula with lactated Ringer's because her compatibility chart in the ER states no data . He confirmed that it is compatible with LR at the Y site in the tubing. I appreciate his recommendations. A while after NG tube had been placed patient was complaining of additional pain including into the chest. His initial EKG was very reassuring, repeat ECG is ordered and chest x-ray is being added post NGT placement to ensure no evidence of perforation though the tube appears to be well-placed in the stomach and is suction and gastric contents at this time. Dilaudid ordered. Repeat ECG personally interpreted demonstrates normal sinus rhythm, rate 75, normal axis, normal IL and QTc, no dynamic changes, no STEMI. Patient had additional nausea and did have an episode of nonbloody, nonbilious emesis. Additional Zofran administered. No longer having emesis. More comfortable at this time. Radiology read resulted and is in agreement with my read and suggests partial small bowel obstruction. I spoke with general surgery on-call Dr. Chong. He agrees with management at this point and requested the patient be admitted to the hospitalist service for conservative management hoping to be able to avoid surgical intervention. Post NGT chest x-ray is pending at this time. Patient handed off to Dr. Ortiz in stable condition pending this chest x-ray and will likely be admitted to the hospitalist service once we are sure there is no pneumomediastinum or evidence of perforation from the NG tube for which I have low suspicion. Hans Ortiz, DO I took over care of this patient at 7 AM this morning upon arrival to the hospital. The patient had reportedly presented this morning with abdominal discomfort as well as belching. He does have an abdominal surgical history including hernia repair as well as a partial colectomy in the past. At the time of shift change this patient's chest x-ray was pending in the setting of developing chest pain after insertion of NG tube. Chest x-ray was personally turbid by me and demonstrates no evidence of streaking within the mediastinum to suggest pneumomediastinum. No obvious pneumothorax appreciated. Official radiology read is pending. I did have an interactive discussion with the patient's primary care physician Dr. Keane who agreed to admit the patient to their service and accept primary responsibility the patient moving forward. I have placed the ED bridge order set at this time. I have confirmed CODE STATUS with the patient and he confirms that he is DNR/DNI officially. I have corrected this orders in the computer at this time. Critical Care <Leydi David MD - Last Filed: 07/12/25 07:08> Critical Care Time Critical Care Time: No
--- NOTE | 2025-07-12 05:24 | XR_ITS ---
PROCEDURE INFORMATION: Exam: XR Chest Exam date and time: 07/12/2025 5:51 AM Age: 75 years old Clinical indication: Other: Upper abd pain; Additional info: Upper-mid abd pain TECHNIQUE: Imaging protocol: Radiologic exam of the chest. Views: 1 view. COMPARISON: No relevant prior studies available. FINDINGS: Lungs: Unremarkable. No consolidation. Pleural spaces: Unremarkable. No pleural effusion. No pneumothorax. Heart/Mediastinum: Unremarkable. No cardiomegaly. Bones/joints: Unremarkable. IMPRESSION: No acute findings.
--- NOTE | 2025-07-12 05:25 | PC.NURSE ---
Pt awake alert and oriented Skin pink warm and dry resp full and easy Speech clear and appropriate IV site without redness or edema
[2025-07-12 05:29] LABS: Microscopic, Urine URINE MICROSCOPIC (MICROSCOPIC)
[2025-07-12 05:32] LABS: Color,Urine YELLOW (Yellow); Glucose,Urine (UA) Negative (Negative); Ketones,Urine Negative (Negative); Leukocyte Esterase,Urine Negative (Negative); PH,Urine 6.0 (5.0-8.5); Protein,Urine TRACE (Negative); Specific Gravity, Urine >= 1.030 (1.005-1.030); Urobilinogen,Urine 1.0 EU/dl (0.2)
[2025-07-12 05:33] LABS: Bilirubin,Urine Negative (Negative)
--- NOTE | 2025-07-12 05:34 | ECG_ITS ---
APPROVED REPORT Exam: Resting ECG HR:68 bpm ECG Measurements Heart Rate 68 AXES MI 193 P 59 QRSd 89 QRS -1 QT 395 T -19 QTc 413 Conclusion SINUS RHYTHM INDETERMINATE AXIS T waves and T wave inversions in inferior leads may indicate previous ischemic insult but there is no STEMI Electronically signed by : ARIEL SHIPLEY, 07/13/2025 04:41:14
--- NOTE | 2025-07-12 05:34 | CT_ITS ---
PROCEDURE INFORMATION: Exam: CTA Abdomen and Pelvis With Contrast Exam date and time: 07/12/2025 5:58 AM Age: 75 years old Clinical indication: Abdominal pain; Epigastric; Additional info: Epigastric-mid abdominal pain, ttp, HX hernia TECHNIQUE: Imaging protocol: Computed tomographic angiography of the abdomen and pelvis with contrast. Exam focused on the arteries. 3D rendering (Not supervised by radiologist): MIP and/or 3D reconstructed images were created by the technologist. Radiation optimization: All CT scans at this facility use at least one of these dose optimization techniques: automated exposure control; mA and/or kV adjustment per patient size (includes targeted exams where dose is matched to clinical indication); or iterative reconstruction. Contrast material: ISOVUE; Contrast volume: 80 ml; Contrast route: INTRAVENOUS (IV); COMPARISON: CR XR CHEST PORTABLE 07/12/2025 5:51 AM FINDINGS: Lungs: The lung bases are clear. Aorta: No aortic aneurysm. No aortic dissection. Celiac trunk and mesenteric arteries: No occlusion or significant stenosis. Renal arteries: No occlusion or significant stenosis. Right iliac arteries: No occlusion or significant stenosis. Left iliac arteries: No occlusion or significant stenosis. Liver: Mild hepatic steatosis. Gallbladder and biliary ducts: Status post cholecystectomy. Pancreas: The pancreas is normal in appearance. No evidence of pancreatic ductal dilatation. Spleen: Old calcified granulomas in the spleen. Adrenal glands: The adrenal glands are normal in appearance. Kidneys and ureters: The kidneys are normal in appearance. No evidence of hydronephrosis or hydroureter. No nephroureteral calculi are identified. Stomach and bowel: The stomach is distended with fluid. Previous bowel surgery. There are multiple dilated loops small bowel measuring up to 3.3 cm. The terminal ileum is fluid-filled but nondilated. The findings suggest a partial small bowel obstruction. There is a small volume of free fluid adjacent to right lower quadrant small bowel loops. Minimal colonic diverticulosis but no evidence of diverticulitis. Appendix: The appendix was not visualized. Intraperitoneal space: No visible intra-abdominal free air. Lymph nodes: Unremarkable. No enlarged lymph nodes. Urinary bladder: The urinary bladder is normal in appearance. Reproductive: Prostatomegaly. Bones/joints: No acute osseous lesions Soft tissues: Previous ventral hernia repair with mesh. No recurrent hernia identified. IMPRESSION: 1. Distended stomach with fluid. There are multiple dilated loops of small bowel measuring up to 3.3 cm. The terminal ileum is fluid-filled but nondilated. The findings suggest at least a partial small bowel obstruction. Small volume free fluid adjacent to right lower quadrant small bowel loops but no evidence of intra-abdominal free air. 2. Colonic diverticulosis but no evidence of diverticulitis. 3. Mesenteric arteries are widely patent. 4. Mild hepatic steatosis. 5. Previous ventral hernia repair with mesh. No recurrent hernia identified.
[2025-07-12 05:38] LABS: Albumin Level 4.9 g/dl (3.5-5.0); Chloride 107 mmol/L (98-107); Potassium 3.5 mmoL/L (3.5-5.1); Sodium 146 mmol/L (136-145)
[2025-07-12 05:40] LABS: Bacteria,Urine 1+ /lpf; Mucus,Urine 2+ /lpf; Squamous Epithelial Cell,Urine Occasional #/hpf (0-5)
[2025-07-12 05:41] LABS: Alanine Aminotransferase 35 U/L (12-78); Albumin/Globulin Ratio 1.5 (1.1-1.8); Alkaline Phosphatase 87 U/L (38-126); Anion Gap 14.5 mEq/L (5-15); Aspartate Amino Transferase 43 U/L (17-59); Bilirubin,Total 1.7 mg/dl (0.2-1.3); Blood Urea Nitrogen 16 mg/dl (9-20); Calcium 9.3 mg/dl (8.4-10.2); Carbon Dioxide 28 mmol/L (22.0-30.0); Creatinine Clearance Estimated 71 mL/min (50-200); Creatinine,Serum 1.10 mg/dl (0.66-1.25); Estimated Glomerular Filt Rate 66 ml/min (>60); GFR (African American) 79 ML/MIN (>60); Globulin 3.2 g/dL (1.3-3.2); Glucose 120 mg/dl (74-100); Lipase 355 U/L (23-300); Total Protein,Serum 8.1 g/dl (6.3-8.2)
[2025-07-12] MEDS: LACTATED RINGERS 1000ML 1,000 ML 999 ML IV (05:41)
[2025-07-12 05:42] LABS: INR 1.08 (0.9-1.1); Prothrombin Time 11.9 seconds (10.1-12.5)
[2025-07-12] MEDS: MORPHINE 4MG/ML SYRINGE 4 MG IV (05:43)
[2025-07-12] MEDS: ONDANSETRON 4MG/2ML VIAL 4 MG IV ×2 (05:44→06:52)
[2025-07-12 05:51] LABS: Hematocrit 43.0 % (42.0-52.0); Hemoglobin 15.9 g/dL (14.1-18.0); Immature Granulocytes % 0.8 %; Mean Corpuscular HGB Conc 37.0 g/dL (31.8-35.4); Mean Corpuscular Volume 120.1 fl (80-94); Nucleated Red Blood Cells % 0 %; Platelet Count 523 K/mm3 (142-424); Red Blood Count 3.58 M/mm3 (4.60-6.20); Red Cell Distribution Width-SD 54.6 fL; White Blood Count 11.1 K/mm3 (4.8-10.8)
[2025-07-12 05:52] LABS: Mean Corpuscular Hemoglobin 44.4 pg (27.0-31.2)
[2025-07-12 05:55] LABS: Troponin I < 0.01 ng/ml (0.00-0.034)
[2025-07-12 06:01] LABS: Bilirubin,Direct 0.2 mg/dl (0.0-0.4)
--- NOTE | 2025-07-12 06:01 | PC.NURSE ---
Pt back from CT scan
[2025-07-12] MEDS: IOPAMIDOL-370 (76%);100ML BOTTLE 80 ML IV (06:05)
[2025-07-12] MEDS: SODIUM CHLORIDE 0.9% 10ML SYR (RAD ONLY) 10 ML IV (06:05)
--- NOTE | 2025-07-12 06:09 | XR_ITS ---
PROCEDURE INFORMATION: Exam: XR Abdomen Exam date and time: 07/12/2025 6:20 AM Age: 75 years old Clinical indication: Device placement; Gi device; Nasogastric tube; Additional info: Ngt placement TECHNIQUE: Imaging protocol: Radiologic exam of the abdomen. Views: Frontal supine view of the abdomen. 1 View. COMPARISON: CT ANGIO ABDOMEN PELVIS 07/12/2025 5:58 AM FINDINGS/IMPRESSION: Tubes, catheters and devices: There is a nasogastric tube in good position within the stomach. Gastrointestinal tract: Several mildly dilated loops of mid small bowel. Intraperitoneal space: No visible intra-abdominal free air. Organs: The kidneys are excreting contrast. Bones/joints: Unremarkable.
--- NOTE | 2025-07-12 06:10 | PC.NURSE ---
Pt in SR per continuous heart monitor
--- NOTE | 2025-07-12 06:16 | PC.NURSE ---
#16fr NG tube placed and anchored at 55 cm nare line. Gastric contentes returned Placement check by aspiration and post film ordered. Pt tolerated procedure well.
[2025-07-12] MEDS: PIPERACILLIN/TAZO 4.5 GM in 0.9 % SODIUM CHLORIDE 100 ML IV ×3 (06:28→21:22)
--- NOTE | 2025-07-12 06:31 | PC.NURSE ---
Placement of NG confirmed by Pt placed on med continuous wall suction
--- NOTE | 2025-07-12 06:42 | XR_ITS ---
FINAL REPORT CLINICAL HISTORY: recheck post-NGT, has some CP COMPARISON: Earlier same day FINDINGS: An NG tube is present with the tip located in the stomach. The heart size is normal. The mediastinum is normal. The lungs are underinflated. There is mild basilar atelectasis. There are no pleural effusions. There is no pneumothorax. There is no osseous abnormality. IMPRESSION: Mild basilar atelectasis. NG tube tip in the stomach. Reviewed, Interpreted and Dictated by Krishna Murphy MD Transcribed by Marilee Randolph Authenticated and . [facility]
[2025-07-12] MEDS: HYDROMORPHONE 2MG/ML SYRINGE 0.5 MG IV (06:47)
--- NOTE | 2025-07-12 06:49 | PC.NURSE ---
Pt complaining of chest pain. Pt pale and skin moist MD aware new orders received.
--- NOTE | 2025-07-12 06:53 | ECG_ITS ---
APPROVED REPORT Exam: Resting ECG HR:75 bpm ECG Measurements Heart Rate 75 AXES DE 204 P 54 QRSd 97 QRS -6 QT 416 T -7 QTc 445 Conclusion SINUS RHYTHM INDETERMINATE AXIS T waves and T wave inversions in inferior leads may indicate previous ischemic insult but there is no STEMI. No dynamic changes Electronically signed by : ARIEL SHIPLEY, 07/13/2025 04:41:48
--- NOTE | 2025-07-12 07:06 | PC.NURSE ---
repeat xray being done at [facility]
--- NOTE | 2025-07-12 07:14 | EXP.SURG.CON ---
History of Present Illness *Admission Date: 07/12/25 *Reason for visit:: Partial small bowel obstruction *History of present illness: Patient is a 75-year-old who presented to the emergency department with mid abdominal pain. He has a prior history of cholecystectomy. He has a history of undergoing colon resection for colon cancer years ago by [facility] surgeons. He has prior ventral hernia repair with mesh placement at outside facility in 2013. CT evaluation reveals findings of distended stomach and multiple dilated loops of small bowel suggestive of partial bowel obstruction. Previous ventral hernia repair without evidence of recurrent hernia noted. He had nasogastric tube placed. He was admitted for inpatient management and surgical consultation. His last bowel movement was on 07/10/2025. [facility] Disclaimer: The information contained in this section may have been updated after the patient was seen, as this information can be updated by other users. Medical History (Updated 07/12/25 @ 09:34 by Gwen Avilez APRN) Mitral regurgitation Prostatitis Colon cancer Hypertension Impacted cerumen, left ear Chronic sinusitis Mixed hyperlipidemia Idiopathic thrombocytopenic purpura (ITP) Bradycardia Diastolic dysfunction Myocardial bridge Surgical History (Updated 07/12/25 @ 09:13 by Gwen Avilez APRN) History of cholecystectomy H/O hemorrhoidectomy History of shoulder surgery H/O hernia repair History of colon resection Family History (Updated 07/12/25 @ 09:14 by Gwen Avilez APRN) Other Hypertension No significant family history Stroke Social History Smoking Status: Never smoker alcohol intake: never substance use type: denies use current occupational status: retired Travel in the last 8 weeks?: None household members: none housing: house caffeine: Yes Have you lived/traveled outside [place] in past 30 days?: No Contact w/someone who lives/traveled outside [place] past 30 days?: No Exposure to someone with infectious disease in past 14 days?: No Do you have a fever (greater than 100.4 F or 38 C)?: No Have you tested positive for COVID-19?: No Exposed to someone with COVID-19 in past 14 days?: No Do you have a sore throat?: No Do you have a cough?: No Do you have any weakness?: No Do you have any diarrhea?: No Are you experiencing any unusual bleeding?: No Do you have any muscle aches/pain?: No Do you have any abdominal pain?: Yes Are you experiencing loss of taste or smell?: No Meds Home Medications and Allergies Home Medications ?Medication ?Instructions ?Recorded ?Confirmed ?Type atorvastatin 10 mg tablet 10 mg PO HS 03/22/18 07/12/25 History acetaminophen 500 mg tablet 500 mg PO Q6HP PRN Mild Pain 08/11/18 07/12/25 History (Tylenol Extra Strength) (Scale Score 1-4) aspirin 81 mg tablet,delayed 81 mg PO DAILY 08/11/18 07/12/25 History release (Adult Low Dose Aspirin) omeprazole 20 mg capsule,delayed 20 mg PO BID 02/01/20 07/12/25 History release levothyroxine 100 mcg tablet 100 mcg PO DAILY 01/03/22 07/12/25 History fluticasone propionate 50 2 spray intranasal DAILY 06/06/22 07/12/25 History mcg/actuation nasal spray,suspension losartan 50 mg tablet 50 mg PO DAILY #30 tabs 06/14/25 07/12/25 Rx azelastine 137 mcg (0.1 %) nasal 2 spray intranasal BID 06/27/25 07/12/25 History spray levocetirizine 5 mg tablet (Xyzal) 5 mg PO DAILY #30 tabs 06/27/25 07/12/25 Rx atenolol 25 mg tablet 25 mg PO DAILY 07/12/25 07/12/25 History hydrochlorothiazide 12.5 mg tablet 12.5 mg PO MOWEFR 07/12/25 07/12/25 History hydroxyurea 500 mg capsule 500 mg PO BID 07/12/25 07/12/25 History New Prescriptions to Start Prescriptions: Allergies Allergy/AdvReac Type Severity Reaction Status Date / Time No Known Allergies Allergy Verified 06/27/25 14:54 Exam (Inpt) Vital signs and Labs for Last 24 Hours: Temp Pulse Resp BP Pulse Ox O2 Del Method 98.3 F 76 19 158/77 H 93 L Room Air 07/12/25 05:15 07/12/25 05:30 07/12/25 06:29 07/12/25 06:29 07/12/25 05:30 07/12/25 05:15 Laboratory Results - last 24 hr 07/12/25 05:08: Urine Color Yellow, Urine Appearance Clear, Urine pH 6.0, Ur Specific Doon >= 1.030, Urine Protein Trace, Urine Glucose (UA) Negative, Urine Ketones Negative, Urine Blood Trace-i, Urine Nitrate Negative, Urine Bilirubin Negative, Urine Urobilinogen 1.0, Ur Leukocyte Esterase Negative, Urine WBC 3-5, Ur Squamous Epith Cells Occasional, Urine Bacteria 1+, Urine Mucus 2+ 07/12/25 05:15: WBC 11.1 H, RBC 3.58 L, Hgb 15.9, Hct 43.0, MCV 120.1 H, MCH 44.4 H*, MCHC 37.0 H, RDW 12.3, Plt Count 523 H, MPV 9.4, Neut % (Auto) 82.6 H, Lymph % (Auto) 10.5, [place] % (Auto) 5.2, Eos % (Auto) 0.4, Baso % (Auto) 0.5, Neut # (Auto) 9.2 H, Lymph # (Auto) 1.2, [place] # (Auto) 0.6, Eos # (Auto) 0.0, Baso # (Auto) 0.1, PT 11.9, INR 1.08, Sodium 146 H, Potassium 3.5, Chloride 107, Carbon Dioxide 28, Anion Gap 14.5, BUN 16, Creatinine 1.10, Estimated Creat Clear 71, Estimated GFR 66, Est GFR ( Amer) 79, Glucose 120 H, Lactate 1.9, Calcium 9.3, Total Bilirubin 1.7 H, Direct Bilirubin 0.2, AST 43, ALT 35, Alkaline Phosphatase 87, Troponin I < 0.01, Total Protein 8.1, Albumin 4.9, Globulin 3.2, Albumin/Globulin Ratio 1.5, Lipase 355 H, HIV Ag/Ab Combo Qual Negative I & O for Labs for Last 24 Hours: Intake & Output 07/09/25 07/10/25 07/11/25 07/12/25 11:59 11:59 11:59 11:59 Intake Total 1093.333 / 1093.333 Balance 1093.333 / 1093.333 Weight 185 lb Comments:: On examination his abdomen is slightly distended. No appreciable tenderness. Results Labs 07/12/25 05:15 07/12/25 05:15 Labs: Laboratory Results - last 24 hr 07/12/25 05:08: Urine Color Yellow, Urine Appearance Clear, Urine pH 6.0, Ur Specific Doon >= 1.030, Urine Protein Trace, Urine Glucose (UA) Negative, Urine Ketones Negative, Urine Blood Trace-i, Urine Nitrate Negative, Urine Bilirubin Negative, Urine Urobilinogen 1.0, Ur Leukocyte Esterase Negative, Urine WBC 3-5, Ur Squamous Epith Cells Occasional, Urine Bacteria 1+, Urine Mucus 2+ 07/12/25 05:15: WBC 11.1 H, RBC 3.58 L, Hgb 15.9, Hct 43.0, MCV 120.1 H, MCH 44.4 H*, MCHC 37.0 H, RDW 12.3, Plt Count 523 H, MPV 9.4, Neut % (Auto) 82.6 H, Lymph % (Auto) 10.5, Oxford % (Auto) 5.2, Eos % (Auto) 0.4, Baso % (Auto) 0.5, Neut # (Auto) 9.2 H, Lymph # (Auto) 1.2, [place] # (Auto) 0.6, Eos # (Auto) 0.0, Baso # (Auto) 0.1, PT 11.9, INR 1.08, Sodium 146 H, Potassium 3.5, Chloride 107, Carbon Dioxide 28, Anion Gap 14.5, BUN 16, Creatinine 1.10, Estimated Creat Clear 71, Estimated GFR 66, Est GFR ( Amer) 79, Glucose 120 H, Lactate 1.9, Calcium 9.3, Total Bilirubin 1.7 H, Direct Bilirubin 0.2, AST 43, ALT 35, Alkaline Phosphatase 87, Troponin I < 0.01, Total Protein 8.1, Albumin 4.9, Globulin 3.2, Albumin/Globulin Ratio 1.5, Lipase 355 H, HIV Ag/Ab Combo Qual Negative Assessment and Plan *Assessment and plan (1) Partial small bowel obstruction: Status: Acute Category: Medical Code(s): K56.600 - Partial intestinal obstruction, unspecified as to cause Plan Attempt with nonoperative management of partial small bowel obstruction. If his symptoms progress or remain refractory could require operative intervention.
--- NOTE | 2025-07-12 07:41 | PC.NURSE ---
speaking w/ Dr. Keane via phone
[2025-07-12] MEDS: PROMETHAZINE HCL 25MG/ML 1ML VIAL 25 MG IV (08:05)
[2025-07-12] MEDS: SODIUM CHLORIDE 0.9% 25ML BAG 25 ML IV (08:05)
--- NOTE | 2025-07-12 08:05 | PC.NURSE ---
Called report to Donna Damico RN
--- NOTE | 2025-07-12 08:12 | PC.NURSE ---
Gwen Avilez @ bedside speaking w/ pt
--- NOTE | 2025-07-12 08:35 | PC.NURSE ---
pt being transported to 2nd floor via .
--- NOTE | 2025-07-12 08:50 | EXP.HP ---
History of Present Illness *Admission Date: 07/12/25 *Reason for visit:: Abdominal pain *History of present illness: Mr. Mims is a 75-year-old male patient who is followed by Dr. Keane at [facility] and has a history of hypertension, congestive heart failure, hypothyroidism, hyperlipidemia, allergic rhinitis, arthritis, colon cancer diagnosed in 2010, prostatitis, myeloprolific disease and followed by heme/oncology, and thrombocytosis who presented to the emergency room last night after experiencing lower abdominal pain which started about 9 PM. He describes the pain as severe and like something was moving down his colon and then stopped. He did experience some nausea and did vomit while in the emergency room. He denies any melena, hematochezia, or hematemesis and dysuria. He ate normally yesterday and had no problems. He did have a ibarra cheeseburger and tea from [employer] for dinner last night. His last bowel movement was 07/10/2025 and was normal. He had an NG tube placed in the emergency room after which he started having some anterior chest pain. EKGs and labs were normal for this. Pain was relieved with meds by ER. While in the ER he received hydromorphone IV, a liter of IV fluids, morphine sulfate 4 mg IV, Zofran and promethazine IV. Patient was voiding QS without dysuria and labs indicated a negative urinalysis. He was noted to have a mild leukocytosis with a white blood cell count of 11,100. He was not anemic. PT and INR were normal. He did have an elevated indirect hyperbilirubinemia. Lipase was mildly elevated at 355. CT scan of the abdomen revealed a small bowel obstruction with a distended stomach and multiple air-fluid levels with distended loops of small bowel. NG tube was placed. There was no evidence of mesenteric ischemia. Post NG tube x-ray indicated no evidence of streaking or evidence to suggest pneumomediastinum and No pneumothorax appreciated. Patient was then admitted for further evaluation and treatment. Dr. Chong, surgeon was consulted. At the time of this exam in the emergency room patient states he has no pain. Abdominal and chest pain have resolved. He is not nauseated. He continues with NG tube in place and feels the abdominal distention has resolved. He is awaiting transfer to a bed on the medical floor. [facility] Disclaimer: The information contained in this section may have been updated after the patient was seen, as this information can be updated by other users. Medical History (Updated 07/12/25 @ 09:34 by Gwen Avilez APRN) Mitral regurgitation Prostatitis Colon cancer Hypertension Impacted cerumen, left ear Chronic sinusitis Mixed hyperlipidemia Idiopathic thrombocytopenic purpura (ITP) Bradycardia Diastolic dysfunction Myocardial bridge Surgical History (Updated 07/12/25 @ 09:13 by Gwen Avilez APRN) History of cholecystectomy H/O hemorrhoidectomy History of shoulder surgery H/O hernia repair History of colon resection Family History (Updated 07/12/25 @ 09:14 by Gwen Avilez APRN) Other Hypertension No significant family history Stroke Social History Smoking Status: Never smoker alcohol intake: never substance use type: denies use current occupational status: retired Travel in the last 8 weeks?: None household members: none housing: house caffeine: Yes Have you lived/traveled outside [place] in past 30 days?: No Contact w/someone who lives/traveled outside US past 30 days?: No Exposure to someone with infectious disease in past 14 days?: No Do you have a fever (greater than 100.4 F or 38 C)?: No Have you tested positive for COVID-19?: No Exposed to someone with COVID-19 in past 14 days?: No Do you have a sore throat?: No Do you have a cough?: No Do you have any weakness?: No Do you have any diarrhea?: No Are you experiencing any unusual bleeding?: No Do you have any muscle aches/pain?: No Do you have any abdominal pain?: Yes Are you experiencing loss of taste or smell?: No Other Medical History Have you received the Flu Vaccine for this season: No Have you received the Pneumonia Vaccine: Yes Review of Systems Constitutional Constitutional: Denies body ache(s), Denies fever(s), Denies frequent falls and Denies headache(s) Eyes Eyes: Denies change in vision ENT Ears, Nose, Mouth, and Throat: Denies dizziness, Denies headache(s), Reports nasal congestion, Denies post nasal drip and Denies sore throat Comments: Has known environmental allergies and chronic sinusitis *Cardiovascular Cardiovascular: Reports chest pain, Denies dyspnea, Denies irregular heart rhythm and Denies leg edema *Respiratory Respiratory: Denies chest congestion, Denies cough and Denies dyspnea *Gastrointestinal Gastrointestinal: Reports abdominal pain, Denies belching, Reports bloating, Denies change in stool character, Denies constipation, Denies diarrhea, Reports dyspepsia (Controlled with PPI), Denies excessive flatus, Denies fecal incontinence, Denies hematemesis, Denies loose stools, Denies melena, Reports nausea and Reports vomiting *Genitourinary Genitourinary: Denies difficulty urinating *Musculoskeletal Musculoskeletal: Denies abnormal gait and Denies arthralgias *Neurologic Neurologic: Denies abnormal gait, Denies behavioral changes, Denies confusion, Denies dizziness, Denies frequent falls and Denies headache(s) Psychiatric Psychiatric: Denies behavioral changes and Denies confusion Meds Home Medications and Allergies Home Medications ?Medication ?Instructions ?Recorded ?Confirmed ?Type atorvastatin 10 mg tablet 10 mg PO HS 03/22/18 07/12/25 History acetaminophen 500 mg tablet 500 mg PO Q6HP PRN Mild Pain 08/11/18 07/12/25 History (Tylenol Extra Strength) (Scale Score 1-4) aspirin 81 mg tablet,delayed 81 mg PO DAILY 08/11/18 07/12/25 History release (Adult Low Dose Aspirin) omeprazole 20 mg capsule,delayed 20 mg PO BID 02/01/20 07/12/25 History release levothyroxine 100 mcg tablet 100 mcg PO DAILY 01/03/22 07/12/25 History fluticasone propionate 50 2 spray intranasal DAILY 06/06/22 07/12/25 History mcg/actuation nasal spray,suspension losartan 50 mg tablet 50 mg PO DAILY #30 tabs 06/14/25 07/12/25 Rx azelastine 137 mcg (0.1 %) nasal 2 spray intranasal BID 06/27/25 07/12/25 History spray levocetirizine 5 mg tablet (Xyzal) 5 mg PO DAILY #30 tabs 06/27/25 07/12/25 Rx atenolol 25 mg tablet 25 mg PO DAILY 07/12/25 07/12/25 History hydrochlorothiazide 12.5 mg tablet 12.5 mg PO MOWEFR 07/12/25 07/12/25 History hydroxyurea 500 mg capsule 500 mg PO BID 07/12/25 07/12/25 History New Prescriptions to Start Prescriptions: Allergies Allergy/AdvReac Type Severity Reaction Status Date / Time No Known Allergies Allergy Verified 06/27/25 14:54 Exam Data for Last 24 hours Vital signs and Labs for Last 24 Hours: Temp Pulse Resp BP Pulse Ox O2 Del Method 97.6 F 78 17 163/86 H 98 Room Air 07/12/25 08:41 07/12/25 08:41 07/12/25 08:41 07/12/25 08:41 07/12/25 08:41 07/12/25 08:41 Laboratory Results - last 24 hr 07/12/25 05:08: Urine Color Yellow, Urine Appearance Clear, Urine pH 6.0, Ur Specific Hobbs >= 1.030, Urine Protein Trace, Urine Glucose (UA) Negative, Urine Ketones Negative, Urine Blood Trace-i, Urine Nitrate Negative, Urine Bilirubin Negative, Urine Urobilinogen 1.0, Ur Leukocyte Esterase Negative, Urine WBC 3-5, Ur Squamous Epith Cells Occasional, Urine Bacteria 1+, Urine Mucus 2+ 07/12/25 05:15: WBC 11.1 H, RBC 3.58 L, Hgb 15.9, Hct 43.0, MCV 120.1 H, MCH 44.4 H*, MCHC 37.0 H, RDW 12.3, Plt Count 523 H, MPV 9.4, Neut % (Auto) 82.6 H, Lymph % (Auto) 10.5, Barton % (Auto) 5.2, Eos % (Auto) 0.4, Baso % (Auto) 0.5, Neut # (Auto) 9.2 H, Lymph # (Auto) 1.2, Barton # (Auto) 0.6, Eos # (Auto) 0.0, Baso # (Auto) 0.1, PT 11.9, INR 1.08, Sodium 146 H, Potassium 3.5, Chloride 107, Carbon Dioxide 28, Anion Gap 14.5, BUN 16, Creatinine 1.10, Estimated Creat Clear 71, Estimated GFR 66, Est GFR ( Amer) 79, Glucose 120 H, Lactate 1.9, Calcium 9.3, Total Bilirubin 1.7 H, Direct Bilirubin 0.2, AST 43, ALT 35, Alkaline Phosphatase 87, Troponin I < 0.01, Total Protein 8.1, Albumin 4.9, Globulin 3.2, Albumin/Globulin Ratio 1.5, Lipase 355 H, HIV Ag/Ab Combo Qual Negative I & O for Last 24 hours: Intake & Output 07/09/25 07/10/25 07/11/25 07/12/25 11:59 11:59 11:59 11:59 Intake Total 1093.333 / 1093.333 Balance 1093.333 / 1093.333 Weight 183 lb 5 oz Constitutional Constitutional: no acute distress Comments: Lying on stretcher in the emergency room. Appears comfortable. NG tube to drainage in place. *Routine HEENT Exam Head: Present normocephalic and atraumatic Eye: Present PERRL; Absent conjunctival icterus, scleral injection or conjunctivae pink ENT: Present mucous membranes moist and oropharynx clear *Routine Neck Exam Neck: Present supple; Absent carotid bruit, lymphadenopathy or thyromegaly *Routine Respiratory Exam Respiratory: Present CTA bilaterally (Anteriorly and posteriorly) *Routine Cardiovascular Exam Cardiovascular: Present RRR (Monitor showing sinus rhythm in the 70s; no ectopy noted) *Routine Abdominal Exam Abdominal: Present soft and distended (Slight distention); Absent normoactive bowel sounds (No audible bowel sounds at this time), tenderness or guarding *Routine Rectal Exam Rectal:: deferred *Routine Genitalia Exam Genitalia:: deferred *Routine Extremities Exam Extremities: Present full ROM and pulses intact; Absent edema or calf tenderness *Routine Neurological Exam Neurological: Present alert and oriented X3 Assessment and Plan *Assessment and plan (1) Abdominal pain: Status: Acute Category: Medical Code(s): R10.9 - Unspecified abdominal pain (2) Partial small bowel obstruction: Status: Acute Category: Medical Code(s): K56.600 - Partial intestinal obstruction, unspecified as to cause (3) Chest pain: Status: Acute Category: Medical Code(s): R07.9 - Chest pain, unspecified (4) Hypertension: Status: Chronic Qualifiers: Hypertension type: essential hypertension Qualified Code(s): I10 - Essential (primary) hypertension Category: Medical Code(s): I10 - Essential (primary) hypertension (5) Hyperbilirubinemia: Status: Acute Category: Medical Code(s): E80.6 - Other disorders of bilirubin metabolism (6) Hematuria: Status: Acute Category: Medical Code(s): R31.9 - Hematuria, unspecified (7) GERD (gastroesophageal reflux disease): Status: Chronic Qualifiers: Esophagitis presence: without esophagitis Qualified Code(s): K21.9 - Gastro-esophageal reflux disease without esophagitis Category: Medical Code(s): K21.9 - Gastro-esophageal reflux disease without esophagitis (8) Hyperlipidemia: Status: Chronic Qualifiers: Hyperlipidemia type: mixed hyperlipidemia Qualified Code(s): E78.2 - Mixed hyperlipidemia Category: Medical Code(s): E78.5 - Hyperlipidemia, unspecified Plan Surgical consult; NG tube to low wall suction; GI rest;Pain and nausea management; patient has been started on piperacillin as well. Monitor labs/xrays Dr. Keane entry - Saw patient, agree with above note.
[2025-07-12 09:34] LABS: Troponin I < 0.01 ng/ml (0.00-0.034)
--- NOTE | 2025-07-12 09:53 | HMH.PHAINT1 ---
Pharmacy Intervention Comments: MEDICATION RECONCILIATION COMPLETED ON PATIENT USING EXTERNAL FILL HISTORY FROM PHARMACY. -TARI LEONARDO, VERÓNICAD
[2025-07-12 11:51] LABS: Hepatitis C Ab Qual. W/ RFX NEGATIVE (Negative)
[2025-07-12 12:09] LABS: Troponin I < 0.01 ng/ml (0.00-0.034)
[2025-07-13 04:00] VITALS: BP 120/75; PULSE 77; RESP 16; TEMP 36.7; O2SAT 95; BMI 27.8
--- NOTE | 2025-07-13 05:23 | PC.NURSE ---
Alert and oriented. NG to left nare at 56cm. Patient has not complained of any abdominal pain or nausea. NG tube to LWS, very little output this shift, light brown in color. Room air. Lung sounds clear. Patient did ambulate to the restroom, small pebble like bowel movement. Bowel sounds active. Abdomen soft and nontender. Call light in reach.
[2025-07-13 06:41] LABS: Albumin Level 3.7 g/dl (3.5-5.0); Chloride 110 mmol/L (98-107); Potassium 3.1 mmoL/L (3.5-5.1); Sodium 143 mmol/L (136-145)
[2025-07-13] MEDS: PIPERACILLIN/TAZO 4.5 GM in 0.9 % SODIUM CHLORIDE 100 ML IV ×3 (06:41→21:10)
[2025-07-13 06:44] LABS: Alanine Aminotransferase 79 U/L (12-78); Albumin/Globulin Ratio 1.5 (1.1-1.8); Alkaline Phosphatase 93 U/L (38-126); Amylase 65 U/L (30-110); Anion Gap 9.1 mEq/L (5-15); Aspartate Amino Transferase 73 U/L (17-59); Bilirubin,Total 1.4 mg/dl (0.2-1.3); Blood Urea Nitrogen 14 mg/dl (9-20); Calcium 8.6 mg/dl (8.4-10.2); Carbon Dioxide 27 mmol/L (22.0-30.0); Creatinine Clearance Estimated 77 mL/min (50-200); Creatinine,Serum 1.00 mg/dl (0.66-1.25); Estimated Glomerular Filt Rate 73 ml/min (>60); GFR (African American) 89 ML/MIN (>60); Globulin 2.4 g/dL (1.3-3.2); Glucose 107 mg/dl (74-100); Lipase 152 U/L (23-300); Total Protein,Serum 6.1 g/dl (6.3-8.2)
[2025-07-13 08:00] VITALS: BP 141/68; PULSE 65; RESP 18; TEMP 36.9; O2SAT 93
--- NOTE | 2025-07-13 08:11 | P.PN_ITS ---
Subjective *Date: 07/13/25 *Time: 08:43 Interval history: Patient is feeling better today. NG tube is still in place but abdominal pain has resolved. He has had 1 BM and is passing gas. No further vomiting. Medical Exam Vital signs and Labs for Last 24 Hours: Vital Signs Temp Pulse Pulse Resp BP BP Pulse Ox 07/13/25 06:56 07/13/25 04:57 07/13/25 04:00 98.0 F 77 16 120/75 95 07/13/25 02:59 07/13/25 01:00 07/12/25 23:00 07/12/25 21:00 07/12/25 20:00 07/12/25 20:00 97.5 F L 72 16 147/81 H 96 07/12/25 18:46 07/12/25 17:00 07/12/25 16:00 97.8 F 64 16 166/78 H 97 07/12/25 15:00 07/12/25 13:00 07/12/25 11:00 07/12/25 09:00 07/12/25 08:57 97.6 F 78 17 163/86 H 07/12/25 08:41 97.6 F 78 17 163/86 H 98 07/12/25 08:30 13 157/80 H O2 Del Method 07/13/25 06:56 Room Air 07/13/25 04:57 Room Air 07/13/25 04:00 Room Air 07/13/25 02:59 Room Air 07/13/25 01:00 Room Air 07/12/25 23:00 Room Air 07/12/25 21:00 Room Air 07/12/25 20:00 Room Air 07/12/25 20:00 Room Air 07/12/25 18:46 Room Air 07/12/25 17:00 Room Air 07/12/25 16:00 Room Air 07/12/25 15:00 Room Air 07/12/25 13:00 Room Air 07/12/25 11:00 Room Air 07/12/25 09:00 Room Air 07/12/25 08:57 Room Air 07/12/25 08:41 Room Air 07/12/25 08:30 Intake and Output 07/12/25 07/13/25 07/13/25 19:59 03:59 11:59 Intake Total 100 / 300 100 / 300 100 / 300 Output Total 0 / 350 0 / 350 350 / 350 Balance 100 / -50 100 / -50 -250 / -50 Intake: Intake, Oral Amount 0 / 0 Intake, Total IV Amount 100 / 300 100 / 300 100 / 300 Piperacillin/Tazo 4.5 gm In 0.9 100 / 300 100 / 300 100 / 300 % Sodium Chloride 100 ml @ 200 mls/hr IV Q8H [facility] Rx#:[id number] Output: Output, Urine Amount 0 / 0 0 / 0 Output, Gastric Drainage Amount 350 / 350 Left Nare 350 / 350 Other: Number of Unmeasured Voids 1 1 Number of Bowel Movements 1 Weight 183 lb 5 oz Patient Weight 07/13/25 11:59 Weight 183 lb 5 oz Laboratory Results - last 24 hr 07/12/25 05:15: HCV Ab ALYSA w/Rflx PCR Qn Negative 07/12/25 08:49: Troponin I < 0.01 07/12/25 11:29: Troponin I < 0.01 07/13/25 05:50: Sodium 143, Potassium 3.1 L, Chloride 110 H, Carbon Dioxide 27, Anion Gap 9.1, BUN 14, Creatinine 1.00, Estimated Creat Clear 77, Estimated GFR 73, Est GFR ( Amer) 89, Glucose 107 H, Calcium 8.6, Total Bilirubin 1.4 H , AST 73 H D, ALT 79 H D, Alkaline Phosphatase 93, Total Protein 6.1 L, Albumin 3.7 D, Globulin 2.4, Albumin/Globulin Ratio 1.5, Amylase 65, Lipase 152 I & O for Labs for Last 24 Hours: Intake & Output 07/10/25 07/11/25 07/12/25 07/13/25 11:59 11:59 11:59 11:59 Intake Total 1093.333 / 1093.333 300 / 300 Output Total 350 / 350 Balance 1093.333 / 1093.333 -50 / -50 Weight 183 lb 5 oz 183 lb 5 oz Constitutional: Present no acute distress Respiratory: Present CTA bilaterally Cardiac: Present Reg Rate and Rhythm GI: Present soft and normal bowel sounds; Absent distention or tenderness Extremities: Absent edema, clubbing or cyanosis Skin: Present intact Neuro: Present alert and awake Assessment and Plan *Assessment and plan (1) Abdominal pain: Status: Acute Category: Medical Code(s): R10.9 - Unspecified abdominal pain (2) Partial small bowel obstruction: Status: Acute Category: Medical Code(s): K56.600 - Partial intestinal obstruction, unspecified as to cause (3) Chest pain: Status: Acute Category: Medical Code(s): R07.9 - Chest pain, unspecified (4) Hypertension: Status: Chronic Qualifiers: Hypertension type: essential hypertension Qualified Code(s): I10 - Essential (primary) hypertension Category: Medical Code(s): I10 - Essential (primary) hypertension (5) Hyperbilirubinemia: Status: Acute Category: Medical Code(s): E80.6 - Other disorders of bilirubin metabolism (6) Hematuria: Status: Acute Category: Medical Code(s): R31.9 - Hematuria, unspecified (7) GERD (gastroesophageal reflux disease): Status: Chronic Qualifiers: Esophagitis presence: without esophagitis Qualified Code(s): K21.9 - Gastro-esophageal reflux disease without esophagitis Category: Medical Code(s): K21.9 - Gastro-esophageal reflux disease without esophagitis (8) Hyperlipidemia: Status: Chronic Qualifiers: Hyperlipidemia type: mixed hyperlipidemia Qualified Code(s): E78.2 - Mixed hyperlipidemia Category: Medical Code(s): E78.5 - Hyperlipidemia, unspecified Plan Surgery to follow. Patient is improving. Potassium is low this am and LFT's are elevated. Will discuss with Dr. Keane. Dr. Keane entry - Saw patient, agree with above note. He has improved, will replace potassium today, possibly remove NG tube later today.
--- NOTE | 2025-07-13 08:13 | P.PN_ITS ---
Subjective Patient reports: no new complaints, feels better, flatus and bowel movement Exam Data for Last 24 hours Vital signs and Labs for Last 24 Hours: Temp Pulse Resp BP Pulse Ox O2 Del Method 98.0 F 77 16 120/75 95 Room Air 07/13/25 04:00 07/13/25 04:00 07/13/25 04:00 07/13/25 04:00 07/13/25 04:00 07/13/25 06:56 Laboratory Results - last 24 hr 07/12/25 05:15: HCV Ab ALYSA w/Rflx PCR Qn Negative 07/12/25 08:49: Troponin I < 0.01 07/12/25 11:29: Troponin I < 0.01 07/13/25 05:50: Sodium 143, Potassium 3.1 L, Chloride 110 H, Carbon Dioxide 27, Anion Gap 9.1, BUN 14, Creatinine 1.00, Estimated Creat Clear 77, Estimated GFR 73, Est GFR ( Amer) 89, Glucose 107 H, Calcium 8.6, Total Bilirubin 1.4 H , AST 73 H D, ALT 79 H D, Alkaline Phosphatase 93, Total Protein 6.1 L, Albumin 3.7 D, Globulin 2.4, Albumin/Globulin Ratio 1.5, Amylase 65, Lipase 152 I & O for Last 24 hours: Intake & Output 07/10/25 07/11/25 07/12/25 07/13/25 11:59 11:59 11:59 11:59 Intake Total 1093.333 / 1093.333 300 / 300 Output Total 350 / 350 Balance 1093.333 / 1093.333 -50 / -50 Weight 183 lb 5 oz 183 lb 5 oz Constitutional Constitutional: no acute distress *Routine Respiratory Exam Respiratory: Absent respiratory distress *Routine Cardiovascular Exam Cardiovascular: Absent tachycardia *Routine Abdominal Exam Abdominal: Present soft Progress Note: A&P Assessment and plan (1) Partial small bowel obstruction: Status: Acute Assessment and plan: Improving. Flatus/bowel movement overnight. Nasogastric tube to drain bag (possibly remove if 4-hour residual minimal) Slowly increase diet if able to remove nasogastric tube in 4 hours
--- NOTE | 2025-07-13 08:32 | PC.NURSE ---
NG tube placed to gravity at this time per surgeon's order. No complaints of nausea, vomiting, or abdominal distention at this time.
--- OUTSIDE RECORDS SUMMARY | 2025-07-13 12:01 | XMS_ITS | Clinical Summary ---
Author Organization Healthcare Address [address] [place] [address] Care Team Providers Care Pipe Layer Name Role Phone Unavailable Primary Care Provider [...]
--- OUTSIDE RECORDS SUMMARY | 2025-07-13 12:01 | XMS_ITS | Clinical Summary ---
Author Organization [facility] Address [address] [place] [address] Care Team Providers Care Moss Gatherer Name Role Phone Alden Hidalgo MD Primary [...] 2024 INFLUENZA VACCINE 08/24/[address] [facility] MEDICARE ADVANTAGE Care Teams Moss Gatherer Relationship Specialty Start Date End Date Alden Hidalgo MD PCP - General Family Medicine 08/21/18
--- NOTE | 2025-07-13 12:37 | PC.NURSE ---
Pt has had no nausea, vomiting, or abdominal distention since hanging NG tube to gravity. Residual's checked. Pt had 0mL out on residual. Per surgeon's nursing communication order, NG tube pulled. Pt tolerated well. Clear liquid diet ordered.
[2025-07-13] MEDS: FLUTICASONE PROP 50MCG NASAL SPRAY 16GM 2 SPRAY NS (14:18)
[2025-07-13] MEDS: AZELASTINE NASAL SPRAY 30ML BOTTLE 137 MCG NS ×2 (14:18→20:12)
[2025-07-13] MEDS: LEVOTHYROXINE 100MCG (0.1MG) TAB 100 MCG PO (14:19)
[2025-07-13 16:00] VITALS: BP 138/65; PULSE 56; RESP 16; TEMP 36.4; O2SAT 99
--- NOTE | 2025-07-13 16:45 | PC.NURSE ---
Pt is A&Ox4. Vital signs stable tolerating room air. IV abx infused per MAR. No complaints of nausea, vomiting, or abdominal distension since NG being pulled. Pt tolerating clear liquids. Pt ambulated in hallways independently several times. Pt resting comfortably with no further needs voiced at this time. Call light within reach.
[2025-07-13 20:00] VITALS: BP 130/72; PULSE 63; RESP 18; TEMP 36.4; O2SAT 96
[2025-07-13] MEDS: ATORVASTATIN 10MG TABLET 10 MG PO (20:12)
[2025-07-14 04:00] VITALS: BP 121/62; PULSE 73; RESP 16; TEMP 36.9; O2SAT 92; BMI 28.0
--- NOTE | 2025-07-14 04:15 | PC.NURSE ---
Patient is alert and oriented x4. He was observed to be resting in bed with eyes closed, respirations even and unlabored, and no apparent distress throughout the majority of the night. Patient reports passing lots of gas and denies any abdominal pain, bloating, or nausea/vomiting. He has been tolerating a full liquid diet without difficulties; avoidance of carbonated drinks encouraged. Abdomen is soft and non-tender upon palpation. Bowel sounds are active in all quadrants. Scheduled medications were administered as appropriately per MAR. Patient ambulates independently in his room/to the bathroom without any difficulties. Electrolyte replacement protocol as directed. Vital signs stable. At this time, the patient is resting in bed without any further complaints. No acute changes noted thus far. Call light within reach.
[2025-07-14] MEDS: PIPERACILLIN/TAZO 4.5 GM in 0.9 % SODIUM CHLORIDE 100 ML IV ×2 (06:08→13:26)
[2025-07-14] MEDS: LEVOTHYROXINE 100MCG (0.1MG) TAB 100 MCG PO (06:08)
[2025-07-14 06:35] LABS: Hematocrit 37.9 % (42.0-52.0); Hemoglobin 13.5 g/dL (14.1-18.0); Immature Granulocytes % 0.5 %; Mean Corpuscular HGB Conc 35.6 g/dL (31.8-35.4); Mean Corpuscular Volume 119.9 fl (80-94); Nucleated Red Blood Cells % 0 %; Platelet Count 308 K/mm3 (142-424); Red Blood Count 3.16 M/mm3 (4.60-6.20); Red Cell Distribution Width-SD 54.4 fL; White Blood Count 5.9 K/mm3 (4.8-10.8)
[2025-07-14 06:43] LABS: Chloride 109 mmol/L (98-107); Sodium 141 mmol/L (136-145)
[2025-07-14 06:44] LABS: Mean Corpuscular Hemoglobin 42.7 pg (27.0-31.2)
[2025-07-14 06:46] LABS: Anion Gap 11.8 mEq/L (5-15); Blood Urea Nitrogen 11 mg/dl (9-20); Calcium 8.7 mg/dl (8.4-10.2); Carbon Dioxide 23 mmol/L (22.0-30.0); Creatinine Clearance Estimated 78 mL/min (50-200); Creatinine,Serum 0.90 mg/dl (0.66-1.25); Estimated Glomerular Filt Rate 83 ml/min (>60); GFR (African American) 100 ML/MIN (>60); Glucose 99 mg/dl (74-100)
[2025-07-14 07:09] LABS: Potassium 2.8 mmoL/L (3.5-5.1)
[2025-07-14 07:19] VITALS: BP 102/50; PULSE 84; RESP 17; TEMP 36.4; O2SAT 97
--- NOTE | 2025-07-14 08:08 | EXP.ACUTE.PN ---
Subjective *Date: 07/14/25 *Time: 08:56 Interval history: Patient is feeling much better. He denies any pain. He has tolerated his diet and has had BM's and been passing gas. NG tube has been removed. Medical Exam Vital signs and Labs for Last 24 Hours: Vital Signs Temp Pulse Pulse Resp BP Pulse Ox O2 Del Method 07/14/25 07:19 97.6 F 84 17 102/50 L 97 Room Air 07/14/25 06:35 Room Air 07/14/25 05:00 Room Air 07/14/25 04:00 98.4 F 73 16 121/62 92 L Room Air 07/14/25 03:00 Room Air 07/14/25 01:00 Room Air 07/13/25 23:00 Room Air 07/13/25 21:00 Room Air 07/13/25 20:00 Room Air 07/13/25 20:00 97.5 F L 63 18 130/72 96 Room Air 07/13/25 18:49 Room Air 07/13/25 17:00 Room Air 07/13/25 16:00 97.5 F L 56 L 16 138/65 99 Room Air 07/13/25 15:00 Room Air 07/13/25 13:00 Room Air 07/13/25 11:00 Room Air 07/13/25 09:00 Room Air Intake and Output 07/13/25 07/14/25 07/14/25 19:59 03:59 11:59 Intake Total 1643.333 / 2138.333 395 / 2138.333 100 / 2138.333 Output Total 0 / 0 0 / 0 0 / 0 Balance 1643.333 / 2138.333 395 / 2138.333 100 / 2138.333 Intake: Intake, Oral Amount 1540 / 1835 295 / 1835 Intake, Total IV Amount 103.333 / 303.333 100 / 303.333 100 / 303.333 KCl 20mEq/100ml 100 ml @ 50 mls 3.333 / 3.333 /hr IV ONCE ONE Rx#:[id number] Piperacillin/Tazo 4.5 gm In 0.9 100 / 300 100 / 300 100 / 300 % Sodium Chloride 100 ml @ 200 mls/hr IV Q8H [facility] Rx#:[id number] Output: Output, Urine Amount 0 / 0 0 / 0 0 / 0 Other: Number of Unmeasured Voids 1 1 1 Number of Bowel Movements 1 Weight 185 lb 8 oz Patient Weight 07/14/25 11:59 Weight 185 lb 8 oz Laboratory Results - last 24 hr 07/14/25 05:57: WBC 5.9 D, RBC 3.16 L, Hgb 13.5 L, Hct 37.9 L, MCV 119.9 H, MCH 42.7 H*, MCHC 35.6 H, RDW 12.2, Plt Count 308 D, MPV 9.5, Neut % (Auto) 78.8, Lymph % (Auto) 11.0, Simpson % (Auto) 7.5, Eos % (Auto) 1.4, Baso % (Auto) 0.8, Neut # (Auto) 4.6, Lymph # (Auto) 0.7, Simpson # (Auto) 0.4, Eos # (Auto) 0.1, Baso # (Auto) 0.1, Sodium 141, Potassium 2.8 L*, Chloride 109 H, Carbon Dioxide 23, Anion Gap 11.8, BUN 11, Creatinine 0.90, Estimated Creat Clear 78, Estimated GFR 83, Est GFR ( Amer) 100, Glucose 99, Calcium 8.7 I & O for Labs for Last 24 Hours: Intake & Output 07/11/25 07/12/25 07/13/25 07/14/25 11:59 11:59 11:59 11:59 Intake Total 1100 / 1100 396.667 / 987.335 0734.333 / 2138.333 Output Total 350 / 350 0 / 0 Balance 1100 / 1100 46.667 / 46.667 2138.333 / 2138.333 Weight 183 lb 5 oz 183 lb 5 oz 185 lb 8 oz Constitutional: Present no acute distress Respiratory: Present CTA bilaterally Cardiac: Present Other (Irregular rhythm) GI: Present soft and normal bowel sounds; Absent distention or tenderness Extremities: Absent edema, clubbing or cyanosis Skin: Present intact Neuro: Present alert and awake Assessment and Plan *Assessment and plan (1) Abdominal pain: Status: Acute Category: Medical Code(s): R10.9 - Unspecified abdominal pain (2) Partial small bowel obstruction: Status: Acute Category: Medical Code(s): K56.600 - Partial intestinal obstruction, unspecified as to cause (3) Chest pain: Status: Acute Category: Medical Code(s): R07.9 - Chest pain, unspecified (4) Hypertension: Status: Chronic Qualifiers: Hypertension type: essential hypertension Qualified Code(s): I10 - Essential (primary) hypertension Category: Medical Code(s): I10 - Essential (primary) hypertension (5) Hyperbilirubinemia: Status: Acute Category: Medical Code(s): E80.6 - Other disorders of bilirubin metabolism (6) Hematuria: Status: Acute Category: Medical Code(s): R31.9 - Hematuria, unspecified (7) GERD (gastroesophageal reflux disease): Status: Chronic Qualifiers: Esophagitis presence: without esophagitis Qualified Code(s): K21.9 - Gastro-esophageal reflux disease without esophagitis Category: Medical Code(s): K21.9 - Gastro-esophageal reflux disease without esophagitis (8) Hyperlipidemia: Status: Chronic Qualifiers: Hyperlipidemia type: mixed hyperlipidemia Qualified Code(s): E78.2 - Mixed hyperlipidemia Category: Medical Code(s): E78.5 - Hyperlipidemia, unspecified Plan Potassium is lower today. Will give 2 more runs of potassium. Will get an EKG today due to irregular heart rhythm. Dr. Keane entry - Saw patient, agree with above note. Will give some oral and IV potassium today.
--- NOTE | 2025-07-14 08:24 | EXP.SURG.PN ---
Subjective Narrative: Doing well. Passing flatus. Tolerating full liquids. Exam Data for Last 24 hours Vital signs and Labs for Last 24 Hours: Temp Pulse Resp BP Pulse Ox O2 Del Method 97.6 F 84 17 102/50 L 97 Room Air 07/14/25 07:19 07/14/25 07:19 07/14/25 07:19 07/14/25 07:19 07/14/25 07:19 07/14/25 07:19 Laboratory Results - last 24 hr 07/14/25 05:57: WBC 5.9 D, RBC 3.16 L, Hgb 13.5 L, Hct 37.9 L, MCV 119.9 H, MCH 42.7 H*, MCHC 35.6 H, RDW 12.2, Plt Count 308 D, MPV 9.5, Neut % (Auto) 78.8, Lymph % (Auto) 11.0, Cross % (Auto) 7.5, Eos % (Auto) 1.4, Baso % (Auto) 0.8, Neut # (Auto) 4.6, Lymph # (Auto) 0.7, Cross # (Auto) 0.4, Eos # (Auto) 0.1, Baso # (Auto) 0.1, Sodium 141, Potassium 2.8 L*, Chloride 109 H, Carbon Dioxide 23, Anion Gap 11.8, BUN 11, Creatinine 0.90, Estimated Creat Clear 78, Estimated GFR 83, Est GFR ( Amer) 100, Glucose 99, Calcium 8.7 I & O for Last 24 hours: Intake & Output 07/11/25 07/12/25 07/13/25 07/14/25 11:59 11:59 11:59 11:59 Intake Total 1100 / 1100 396.667 / 786.753 2299.333 / 2618.333 Output Total 350 / 350 0 / 0 Balance 1100 / 1100 46.667 / 46.667 2618.333 / 2618.333 Weight 183 lb 5 oz 183 lb 5 oz 185 lb 8 oz *Routine Abdominal Exam Abdominal: Absent tenderness Comments: Slight distension. Progress Note: A&P Assessment and plan (1) Abdominal pain: Status: Acute (2) Partial small bowel obstruction: Status: Acute Assessment and plan: Possible discharge. Recommend low residue diet. (3) Chest pain: Status: Acute (4) Hypertension: Status: Chronic (5) Hyperbilirubinemia: Status: Acute (6) Hematuria: Status: Acute (7) GERD (gastroesophageal reflux disease): Status: Chronic (8) Hyperlipidemia: Status: Chronic
[2025-07-14] MEDS: AZELASTINE NASAL SPRAY 30ML BOTTLE 137 MCG NS (09:26)
[2025-07-14] MEDS: POTASSIUM CHLORIDE 20MEQ TAB 40 MEQ PO (09:26)
[2025-07-14] MEDS: POTASSIUM CHLORIDE 20 MEQ, LIDOCAINE HCL/PF 3 ML in 0.9 % SODIUM CHLORIDE 100 ML 56.5 MEQ IV (09:27)
[2025-07-14] MEDS: FLUTICASONE PROP 50MCG NASAL SPRAY 16GM 2 SPRAY NS (09:27)
[2025-07-14 14:07] VITALS: BMI 28.0
--- NOTE | 2025-07-14 14:29 | ECG_ITS ---
APPROVED REPORT Exam: Resting ECG HR:100 bpm ECG Measurements Heart Rate 100 AXES QRSd 93 QRS -17 QT 338 T 7 QTc 395 Conclusion ATRIAL FIBRILLATION WITH RAPID VENTRICULAR RESPONSE ABNORMAL RHYTHM ECG UNCONFIRMED REPORT Electronically signed by : Alden Mackay MD 07/15/2025 08:06:12
--- NOTE | 2025-07-15 18:05 | EXP.DC.SUM ---
General Admission date:: 07/12/25 Discharge date: 07/14/25 HPI HPI HPI: Patient is a 75-year-old who presented to the emergency department with mid abdominal pain. He has a prior history of cholecystectomy. He has a history of undergoing colon resection for colon cancer years ago by [facility] surgeons. He has prior ventral hernia repair with mesh placement at outside facility in 2013. CT evaluation reveals findings of distended stomach and multiple dilated loops of small bowel suggestive of partial bowel obstruction. Previous ventral hernia repair without evidence of recurrent hernia noted. He had nasogastric tube placed. He was admitted for inpatient management and surgical consultation. His last bowel movement was on 07/10/2025. Hospital Course Hospital Course Hospital Course: The patient was admitted and an NG tube was placed. Surgery was consulted and he was placed on GI rest and was given pain and nausea medication. He was also started on piperacillin. By 07/13/2025, he was feeling better. His abdominal pain had resolved and he had 1 bowel movement and was passing gas. He had no further vomiting. His potassium was low and had to be replaced. Surgery removed the NG tube and he was started on liquids. He tolerated his diet and had more bowel movements and was passing gas. His potassium remained low and he was given 2 more runs of potassium. His heart rhythm was irregular and an EKG was ordered. It did show A-fib. Eliquis was added and his atenolol was discontinued and he was started on metoprolol. He will follow-up in the office with Dr. Keane in 5 days. Exam Data for Last 24 hours Vital signs and Labs for Last 24 Hours: Temp Pulse Resp BP Pulse Ox O2 Del Method 97.6 F 84 17 102/50 L 97 Room Air 07/14/25 07:19 07/14/25 07:19 07/14/25 07:19 07/14/25 07:19 07/14/25 07:19 07/14/25 15:00 I & O for Last 24 hours: Intake & Output 07/13/25 07/14/25 07/15/25 07/16/25 11:59 11:59 11:59 11:59 Intake Total 396.667 / 799.635 9613.333 / 2731.333 340 / 340 Output Total 350 / 350 0 / 0 Balance 46.667 / 46.667 2731.333 / 2731.333 340 / 340 Weight 183 lb 5 oz 185 lb 8 oz 185 lb 8 oz Narrative: Constitutional Constitutional: no acute distress Comments: Lying on stretcher in the emergency room. Appears comfortable. NG tube to drainage in place. *Routine HEENT Exam Head: Present normocephalic and atraumatic Eye: Present PERRL; Absent conjunctival icterus, scleral injection or conjunctivae pink ENT: Present mucous membranes moist and oropharynx clear *Routine Neck Exam Neck: Present supple; Absent carotid bruit, lymphadenopathy or thyromegaly *Routine Respiratory Exam Respiratory: Present CTA bilaterally (Anteriorly and posteriorly) *Routine Cardiovascular Exam Cardiovascular: Present RRR (Monitor showing sinus rhythm in the 70s; no ectopy noted) *Routine Abdominal Exam Abdominal: Present soft and distended (Slight distention); Absent normoactive bowel sounds (No audible bowel sounds at this time), tenderness or guarding *Routine Rectal Exam Rectal:: deferred *Routine Genitalia Exam Genitalia:: deferred *Routine Extremities Exam Extremities: Present full ROM and pulses intact; Absent edema or calf tenderness *Routine Neurological Exam Neurological: Present alert and oriented X3 DS: Diagnosis Discharge Diagnosis (1) Abdominal pain: Status: Acute Code(s): R10.9 - Unspecified abdominal pain (2) Partial small bowel obstruction: Status: Acute Code(s): K56.600 - Partial intestinal obstruction, unspecified as to cause (3) Chest pain: Status: Acute Code(s): R07.9 - Chest pain, unspecified Qualifiers: Chest pain type: other chest pain Qualified Code(s): R07.89 - Other chest pain (4) Hypertension: Status: Chronic Code(s): I10 - Essential (primary) hypertension Qualifiers: Hypertension type: essential hypertension Qualified Code(s): I10 - Essential (primary) hypertension (5) Hyperbilirubinemia: Status: Acute Code(s): E80.6 - Other disorders of bilirubin metabolism (6) Hematuria: Status: Acute Code(s): R31.9 - Hematuria, unspecified (7) GERD (gastroesophageal reflux disease): Status: Chronic Code(s): K21.9 - Gastro-esophageal reflux disease without esophagitis Qualifiers: Esophagitis presence: without esophagitis Qualified Code(s): K21.9 - Gastro-esophageal reflux disease without esophagitis (8) Hyperlipidemia: Status: Chronic Code(s): E78.5 - Hyperlipidemia, unspecified Qualifiers: Hyperlipidemia type: mixed hyperlipidemia Qualified Code(s): E78.2 - Mixed hyperlipidemia (9) New onset a-fib: Status: Acute Code(s): I48.91 - Unspecified atrial fibrillation Meds Home Medications and Allergies Home Medications ?Medication ?Instructions ?Recorded ?Confirmed ?Type atorvastatin 10 mg tablet 10 mg PO HS 03/22/18 07/15/25 History acetaminophen 500 mg tablet 500 mg PO Q6HP PRN Mild Pain 08/11/18 07/15/25 History (Tylenol Extra Strength) (Scale Score 1-4) aspirin 81 mg tablet,delayed 81 mg PO DAILY 08/11/18 07/15/25 History release (Adult Low Dose Aspirin) omeprazole 20 mg capsule,delayed 20 mg PO BID 02/01/20 07/15/25 History release levothyroxine 100 mcg tablet 100 mcg PO DAILY 01/03/22 07/15/25 History fluticasone propionate 50 2 spray intranasal DAILY 06/06/22 07/15/25 History mcg/actuation nasal spray,suspension azelastine 137 mcg (0.1 %) nasal 2 spray intranasal BID 06/27/25 07/15/25 History spray levocetirizine 5 mg tablet (Xyzal) 5 mg PO DAILY #30 tabs 06/27/25 07/15/25 Rx hydroxyurea 500 mg capsule 500 mg PO BID 07/12/25 07/15/25 History apixaban 5 mg tablet (Eliquis) 5 mg PO BID #60 tabs 07/14/25 07/15/25 Rx losartan 50 mg tablet 25 mg (1/2 x 50 mg) PO DAILY #30 07/14/25 07/15/25 Rx tabs metoprolol succinate 50 mg capsule 50 mg PO DAILY #30 ea 07/14/25 07/15/25 Rx sprinkle, ext. release 24 hr potassium chloride 10 mEq 10 meq PO DAILY #7 caps 07/14/25 07/15/25 Rx capsule,extended release New Prescriptions to Start Prescriptions: apixaban [Eliquis] [place],Dwaine metoprolol succinate [place],Dwaine potassium chloride [place],Dwaine Allergies Allergy/AdvReac Type Severity Reaction Status Date / Time No Known Allergies Allergy Verified 07/15/25 08:46 Discharge Plan Disposition Patient Disposition: Home, Self-Care Condition: Fair Discharge Order Discharge Orders: Discharge Order (Routine); Ordered 07/14/25 Ordered By: Dwaine Keane Follow up Plan Follow up with: Dwaine Keane MD [Primary Care Provider, Medical] - 07/21/25 10:45 am Prescriptions/Medication Reconciliation: New metoprolol succinate 50 mg capsule,sprinkle,ER 24hr 50 mg PO DAILY Qty: 30 0RF Eliquis 5 mg tablet 5 mg PO BID Qty: 60 0RF potassium chloride 10 mEq capsule, extended release 10 meq PO DAILY Qty: 7 0RF Continued levothyroxine 100 mcg tablet 100 mcg PO DAILY acetaminophen [Tylenol Extra Strength] 500 mg tablet 500 mg PO Q6HP PRN (Reason: Mild Pain (Scale Score 1-4)) aspirin [Adult Low Dose Aspirin] 81 mg tablet,delayed release (DR/EC) 81 mg PO DAILY fluticasone propionate 50 mcg/actuation spray,suspension 2 spray intranasal DAILY azelastine 137 mcg (0.1 %) spray,non-aerosol 2 spray intranasal BID Patient Comments: pt states he uses one spray daily levocetirizine [Xyzal] 5 mg tablet 5 mg PO DAILY Qty: 30 3RF atorvastatin 10 MG tablet 10 mg PO HS omeprazole 20 mg capsule,delayed release(DR/EC) 20 mg PO BID hydroxyurea 500 mg capsule 500 mg PO BID Changed losartan 50 mg tablet 25 mg PO DAILY Qty: 30 2RF Discontinued atenolol 25 mg tablet 25 mg PO DAILY hydrochlorothiazide 12.5 mg tablet 12.5 mg PO MOWEFR Problem Reconciliation Problems Reviewed?: Yes Patient Discharge Instructions ACTIVITY: Continue current activity DIET: continue same diet Patient Instructions: Small Bowel Obstruction, DI for Atrial Fibrillation, Apixaban Print Language: Marshallese Providers Primary Care Provider: Dwaine Keane Admit Provider: Dwaine Keane Attending Provider: Dwaine Keane
== END 2025-07-14 15:56 | disposition home or self-care (01) | DRG 389 ==
LOC: ER 07:34 → 2ND 07:52
PROVIDERS: Emergency Medicine; Admitting Provider Family Medicine; Emergency Provider Student in an Organized Health Care Education/Training Program; PCP Family Medicine; Visit Provider Family Medicine
DX: K56.600 Partial intestinal obstruction, unspecified as to cause (principal); D47.1 Chronic myeloproliferative disease; D69.3 Immune thrombocytopenic purpura; I48.91 Unspecified atrial fibrillation; K21.9 Gastro-esophageal reflux disease without esophagitis; E78.5 Hyperlipidemia, unspecified; E80.6 Other disorders of bilirubin metabolism; I11.0 Hypertensive heart disease with heart failure; I50.9 Heart failure, unspecified; D72.829 Elevated white blood cell count, unspecified; E03.9 Hypothyroidism, unspecified; Z66 Do not resuscitate; E87.6 Hypokalemia; Z85.038 Personal history of other malignant neoplasm of large intestine; Z90.49 Acquired absence of other specified parts of digestive tract; Z79.82 Long term (current) use of aspirin; Z79.899 Other long term (current) drug therapy; Z79.890 Hormone replacement therapy; Z98.890 Other specified postprocedural states
CPT/HCPCS: 36415; 71045; 74018; 74174; 80048; 80053; 81001; 82150; 82248; 83605; 83690; 84484; 85025; 85610; 86803; 87389; 93005; 99285; J1171; J2003; J2270; J2405; J2543; J2550; J3480; J7120; Q9967

== ENCOUNTER 2025-07-15 09:45 | Outpatient (CLI) | payer MEDICARE, OTHER, SELFPAY ==
--- OUTSIDE RECORDS SUMMARY | 2025-07-15 09:50 | XMS_ITS | Clinical Summary ---
Author Organization [facility] Address [address] [place] [address] Care Team Providers Care Supervisor General Name Role Phone Alden Hidalgo MD Primary [...] 2023- season) 2024 INFLUENZA VACCINE 08/24/2025 Insurance [facility] MEDICARE ADVANTAGE Care Teams Supervisor General Relationship Specialty Start Date End Date Alden Hidalgo MD PCP - General Family Medicine 08/21/18
--- OUTSIDE RECORDS SUMMARY | 2025-07-15 09:50 | XMS_ITS | Clinical Summary ---
Author Organization [facility] Address [address] [place] [address] Care Team Providers Care Yeast Distiller Name Role Phone Unavailable Primary Care Provider [...]
--- NOTE | 2025-07-15 11:20 | SW/DCPLANNER ---
Spoke with patient on the phone. Patient stated that he is doing well. Patient stated that he has no concerns or questions at this time. Patient stated that he is aware of his upcoming appointments. Patient stated that he was able to get his new medicine picked up from clinic pharmacy. Patient stated that he is going to start taking his new medicine today. Leena Wakefield
== END 2025-07-15 23:59 | disposition home or self-care (01) ==
LOC: LAB 09:46
PROVIDERS: PCP Family Medicine; Visit Provider Nurse Practitioner Family
DX: I48.91 Unspecified atrial fibrillation (principal); R94.31 Abnormal electrocardiogram [ECG] [EKG]; I51.89 Other ill-defined heart diseases
CPT/HCPCS: 93225; 93227

== ENCOUNTER 2025-07-17 11:31 | Outpatient (CLI) | payer MEDICARE, OTHER, SELFPAY ==
--- OUTSIDE RECORDS SUMMARY | 2025-07-17 11:36 | XMS_ITS | Clinical Summary ---
Author Organization [facility] Address [address] [place] [address] Care Team Providers Care Scuba Instructor Name Role Phone Alden Hidalgo MD Primary [...] 2023- season) 2024 INFLUENZA VACCINE 08/24/2025 Insurance [facility] MEDICARE ADVANTAGE Care Teams Scuba Instructor Relationship Specialty Start Date End Date Alden Hidalgo MD PCP - General Family Medicine 08/21/18
--- OUTSIDE RECORDS SUMMARY | 2025-07-17 11:36 | XMS_ITS | Clinical Summary ---
Author Organization [facility] Address [address] [place] [address] Care Team Providers Care Patient Care Provider Name Role Phone Unavailable Primary Care Provider [...]
== END 2025-07-17 23:59 | disposition home or self-care (01) ==
LOC: RT 11:34
PROVIDERS: PCP Family Medicine; Visit Provider Nurse Practitioner Family
DX: I49.1 Atrial premature depolarization (principal); I47.19 Other supraventricular tachycardia; I49.3 Ventricular premature depolarization
CPT/HCPCS: 93270

== ENCOUNTER 2025-08-03 11:08 | Outpatient (CLI) | payer MEDICARE, OTHER, SELFPAY ==
--- NOTE | 2025-08-03 | CA_ITS ---
APPROVED REPORT Exam: Exercise Treadmill Technologist: Malissa Madden Stress Nurse: Rita Mims Ht: 5 ft 8 in Wt: 185 lbs BSA: 1.98 m2 HR: 65 bpm BP: 157/75 mmHg Stress Test Details Test: Exercise stress testing was performed using a Mina protocol. HR Resting HR: 65 bpm Max Heart Rate (APMHR): 147.280429 bpm Max HR Achieved: 140 bpm Target HR (85% APMHR): 124.610886 bpm % of APMHR: 95.24 Recovery HR: 88 bpm BP Resting BP: 157.0/75.0 mmHg Max BP: 140.0/68.0 mmHg Recovery BP: 164.0/88.0 mmHg ECG Resting ECG: Sinus rhythm Stress ECG Conclusion Lungs CTA prior to test start. Test stopped due to fatigue/legs tired. Symptoms: None Arrhythmias/Ectopy: PVC ST-T Changes: Less than 0.[address] segment changes. Conclusion: Banks treadmill score +6 Electronically signed by : Jocelyne Hamilton MD 08/03/2025 18:10:38
--- OUTSIDE RECORDS SUMMARY | 2025-08-03 11:11 | XMS_ITS | Clinical Summary ---
Author Organization [facility] Address [address] [place] [address] Care Team Providers Care Needle Punch Machine Operator Helper Name Role Phone Alden Hidalgo MD Primary [...] 09/03/2018 COVID-19 Vaccine (1 - 2023- season) 2025 INFLUENZA VACCINE 08/24/2025 Insurance [facility] MEDICARE ADVANTAGE Care Teams Needle Punch Machine Operator Helper Relationship Specialty Start Date End Date Alden Hidalgo MD PCP - General Family Medicine 08/21/18
--- OUTSIDE RECORDS SUMMARY | 2025-08-03 11:11 | XMS_ITS | Clinical Summary ---
Author Organization [facility] Address [address] [place] [address] Care Team Providers Care Psychologist Social Name Role Phone Unavailable Primary Care Provider [...]
--- NOTE | 2025-08-03 11:30 | NM_ITS ---
APPROVED REPORT Exam: Nuclear Stress Test Indication: soa..fatigue..a-fib..dizziness Patient Location: Outpatient Stress Tech: Malissa Madden [place] Tech:Annie Landers MARCELINA RT(R)(N) Ht: 5 ft 8 in Wt: 180 lbs HR: 77 bpm BP: 157/75 mmHg BSA: 1.95 m2 TID: 0.96 BMI: 27.3 History: soa..fatigue..a-fib..dizziness Procedure: Patient exercised on Mina protocol 6:49 minutes and sec, resting heart rate 77 bpm, resting blood pressure 157/75 mmHg, with exercise maximum heart rate achived was 140 bpm which is 95 % of the maximum predicted heart rate and blood pressure was 164/88 mmHg. Patient denied any complaint of chest pain. Patient has average exercise capacity, achieved 8.3 METs of workload on treadmill, the blood pressure response to exercise was normal. Cardiac Stress and Resting SPECT Images: Cardiac Stress and Resting SPECT images were obtained using technetium 99m Myoview 32.2 mCi stress and 10.23 mCi at rest. Resting and stress imaging in supine and prone positions demonstrate no evidence of fixed or reversible perfusion defects. Gated imaging demonstrates normal global and regional LV systolic function. LVEF is calculated at 55%. Conclusion: No evidence of fixed or reversible perfusion defects. Gated imaging demonstrates normal global and regional LV systolic function. LVEF is calculated at 55%. Electronically signed by : Jocelyne Hamilton MD 08/03/2025 14:47:53
[2025-08-03 13:00] VITALS: BP 157/75; BP 173/72; PULSE 65; RESP 16
[2025-08-03] MEDS: ISOTOPE MYOVIEW (PER STUDY) 1 DOSE IV (13:15)
[2025-08-03] MEDS: SODIUM CHLORIDE 0.9% 10ML SYR (RAD ONLY) 10 ML IV ×2 (13:15)
--- NOTE | 2025-08-03 13:45 | CA_ITS ---
APPROVED REPORT EXAM: Comprehensive 2D, Doppler, and color-flow Echocardiogram Life Insurance Sales Agent: Fernanda Reynoso CRT Ht: 5 ft 8 in Wt: 185lbs BSA: 1.98 BP: 163/84 mmHg Indications: Abnormal ECG, Atrial Fibrillation 2D Dimensions LA Volume 48.80 mL LA Volume Index 24.00 mL/m2 (M/F) 16-34 M-Mode Dimensions RVDd 3.73 cm (0.9-2.6) LA Diam 4.47 cm (1.9-4.0) LVDd 4.17 cm (3.5-5.7) LVDs 2.57 cm (3.5-5.7) IVSd 1.57 cm (0.6-1.1) PWd 1.00 cm (0.6-1.1) EF (Teich) 69.10% FS 38.40% EDV (Teich) 77.30 mL TAPSE 2.34 (<1.7) ESV (Teich) 23.90 mL LV Diastology E Decel Time 203 (160-240 msec) E/A Ratio 0.57 MED A' 11.10 cm/s LAT A' 11.30 cm/s Aortic Valve AO Peak GR. 5.10 mmHg Mitral Valve MV E Max Juan. 56.0 (40-130 cm/s) MV A Velocity 98.0 (40-130 cm/s) E/A Ratio 0.57 MV PHT 60.0 ms Pulmonary Valve PV Peak Velocity 117.0 (50-150 cm/s) Tricuspid Valve TR P. Velocity 255.00 cm/s RAP Estimate 10.00 mmHg RVSP 36.00 mmHg Left Ventricle The left ventricle is normal size. Left ventricular systolic function is normal. The left ventricular ejection fraction is within the normal range. There is increased left ventricular wall thickness. Proximal septal thickening is present. The septum is asynchronous. The left ventricular diastolic function is indeterminate. Transmitral Doppler flow pattern suggests impaired LV relaxation. LVEF is 55% Right Ventricle The right ventricle is normal size. The right ventricular systolic function is normal. Atria The left atrium is mildly dilated. The right atrium is mildly dilated. There is no color Doppler evidence of interatrial shunt. Aortic Valve The aortic valve is mildly thickened. There is no hemodynamically significant aortic valvular stenosis. Trace aortic regurgitation is present. 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 No evidence of mitral valve stenosis. Moderate mitral regurgitation is present. The MR jet is eccentric and posteriorly directed. Tricuspid Valve The tricuspid valve leaflets are thin and pliable. Mild tricuspid regurgitation. RVSP is 25-30 mmHg. Pulmonic Valve The pulmonary valve is grossly normal in structure. Trace pulmonic valve regurgitation is present. Great Vessels The aortic root is normal in size. IVC is normal in size and collapses >50% with inspiration. Pericardium There is no pericardial effusion. Other Information Study Quality: Fair Conclusion Normal biventricular systolic function. Mild biatrial dilation. Prolapse of the anterior MV leaflet. Moderate MR (eccentric posterior jet). Mild TR. Electronically signed by : Jocelyne Hamilton MD 08/03/2025 14:46:26
== END 2025-08-03 23:59 | disposition home or self-care (01) ==
LOC: RAD 11:09
PROVIDERS: PCP Family Medicine; Visit Provider Nurse Practitioner Family
DX: I08.1 Rheumatic disorders of both mitral and tricuspid valves (principal); I49.3 Ventricular premature depolarization; I48.91 Unspecified atrial fibrillation; R94.31 Abnormal electrocardiogram [ECG] [EKG]
CPT/HCPCS: 78452; 93017; 93018; 93306; A9502

== ENCOUNTER 2025-08-11 09:49 | Outpatient (CLI) | payer MEDICARE, OTHER, SELFPAY ==
--- OUTSIDE RECORDS SUMMARY | 2025-08-11 09:52 | XMS_ITS | Clinical Summary ---
Author Organization [facility] Address [address] [place] [address] Care Team Providers Care Air Analysis Engineering Technician Name Role Phone Unavailable Primary Care Provider [...]
--- OUTSIDE RECORDS SUMMARY | 2025-08-11 09:52 | XMS_ITS | Clinical Summary ---
Author Organization [facility] Address [address] [place] [address] Care Team Providers Care Personnel Quality Assurance Auditor Name Role Phone Alden Hidalgo MD Primary [...] 2023- season) 2025 INFLUENZA VACCINE 08/24/2025 Insurance [facility] MEDICARE ADVANTAGE Care Teams Personnel Quality Assurance Auditor Relationship Specialty Start Date End Date Alden Hidalgo MD PCP - General Family Medicine 08/21/18
[2025-08-11 10:29] LABS: Hematocrit 38.7 % (42.0-52.0); Hemoglobin 13.7 g/dL (14.1-18.0); Mean Corpuscular HGB Conc 35.4 g/dL (31.8-35.4); Mean Corpuscular Volume 118.3 fl (80-94); Platelet Count 677 K/mm3 (142-424); Red Blood Count 3.27 M/mm3 (4.60-6.20); White Blood Count 11.5 K/mm3 (4.8-10.8)
[2025-08-11 10:30] LABS: Mean Corpuscular Hemoglobin 41.9 pg (27.0-31.2)
[2025-08-11 10:40] LABS: INR 1.16 (0.9-1.1); Prothrombin Time 12.7 seconds (10.1-12.5)
[2025-08-11 10:58] LABS: Total Cells Counted 100
[2025-08-11 11:00] LABS: Macrocytosis 1+; Polychromasia 2+
[2025-08-11 11:04] LABS: Alanine Aminotransferase 36 U/L (12-78); Albumin Level 4.4 g/dl (3.5-5.0); Albumin/Globulin Ratio 1.6 (1.1-1.8); Alkaline Phosphatase 68 U/L (38-126); Anion Gap 11.8 mEq/L (5-15); Aspartate Amino Transferase 45 U/L (17-59); Bilirubin,Total 0.7 mg/dl (0.2-1.3); Blood Urea Nitrogen 16 mg/dl (9-20); Calcium 9.2 mg/dl (8.4-10.2); Carbon Dioxide 27 mmol/L (22.0-30.0); Chloride 104 mmol/L (98-107); Creatinine,Serum 0.90 mg/dl (0.66-1.25); Estimated Glomerular Filt Rate 83 ml/min (>60); GFR (African American) 100 ML/MIN (>60); Globulin 2.7 g/dL (1.3-3.2); Glucose 84 mg/dl (74-100); Potassium 3.8 mmoL/L (3.5-5.1); Sodium 139 mmol/L (136-145); Total Protein,Serum 7.1 g/dl (6.3-8.2)
== END 2025-08-11 23:59 | disposition home or self-care (01) ==
LOC: LAB 09:50
PROVIDERS: PCP Family Medicine; Visit Provider Internal Medicine
DX: I34.1 Nonrheumatic mitral (valve) prolapse (principal); I34.0 Nonrheumatic mitral (valve) insufficiency
CPT/HCPCS: 36415; 80053; 85007; 85014; 85018; 85048; 85049; 85610

== ENCOUNTER 2025-08-11 10:06 | Outpatient (CLI) | payer MEDICARE, OTHER, SELFPAY ==
--- NOTE | 2025-08-11 10:30 | MR_ITS ---
APPROVED REPORT Adventure Challenge Instructor: CLINICAL INDICATION Mitral valve disease TECHNIQUE Image Acquisition: Cardiac magnetic resonance (CMR) was performed on Siemens Espree MRI 1.5T scanner. Software platform sequences were performed using the Siemens Saisei MR B19 platform. A set of three-plane, low-resolution, large woaov-za-judy localizers were initially acquired. Then axial, coronal, sagittal TrueFISP, as well as axial HASTE images, were obtained. These were followed by gated TrueFISP breathold cinematic sequences obtained in the short axis with 8 mm slices and 2 mm gaps, 2-chamber (vertical long axis), 3-chamber, 4-chamber (horizontal long axis). A bolus of contrast was injected intravenously with first-pass sequences obtained in the short axis and four-chamber planes. After approximately 10 minutes, a TI inclusion manager sequence was performed to determine the optimal TI time. Using the optimized TI time, delayed contrast enhancement segmented inversion???recovery TurboFLASH sequences were obtained in the short axis, 2-chamber, 3-chamber, and 4-chamber projections. 2D-velocity phase mapping was performed. Functional parameters were calculated by offline analysis on an independent workstation ([employer] Platform, [employer]). Contrast: ProHance??? (Gadoteridol) FINDINGS MORPHOLOGY AND FUNCTION Left ventricle: The left ventricle is normal in size. The indexed left ventricular end-diastolic volume (LVEDVi) is 86 ml/m2 (reference range 57-105 ml/m2 in males, 56-96 ml/m2 in females). Normal left ventricular systolic function is present. There is normal left ventricular wall thickness. The septum is asynchronous. There are no regional wall motion abnormalities noted. LVEF is calculated at 59.6% (reference range 57-77%). Right ventricle: The right ventricle is normal in size. The indexed right ventricular end-diastolic volume (RVEDVi) is 72 ml/m2 (reference range 61-121 ml/m2 in males, 48-112 ml/m2 in females). Normal right ventricular systolic function is present. RVEF is calculated at 55.2% (reference range 52-72% in males, 51-71% in females). Atria: The left atrium is severely dilated. The maximum indexed left atrial volume is 55 ml/m2 (reference range 26-52 ml/m2 in males, 27-53 ml/m2 in females). The right atrium is mildly dilated. The maximum indexed right atrial volume is 36 ml/m2 (reference range 18-90 ml/m2). Aorta: The diameter of the aortic annulus is normal, measuring 27 mm (coronal view reference range 21-30 mm in males, 19-27 mm in females). The diameter of the aortic sinus is normal, measuring 33 mm (coronal view reference range 25-42 mm in males, 24-36 mm in females). The diameter of the sinotubular junction is normal, measuring 26 mm (coronal view reference range 18-32 mm in males, 18-28 mm in females). The diameters of the ascending and descending thoracic aorta are normal. Main pulmonary artery: The main pulmonary artery diameter is normal. Pericardium: The pericardial thickness is normal. The pericardial thickness measures 1.5 mm (normal < 4.0 mm). There is no pericardial effusion. 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 Moderate mitral regurgitation is present. The MR jet is eccentric and posteriorly directed. Regurgitant volume is 26 mL (may be underestimated on CMR). Ratio of pulmonary to systemic flow, Qp:Qs ratio = 1.1 (normal < or = 1.2, hemodynamically significant shunt > 1.5), demonstrating no evidence of hemodynamically significant shunt. TISSUE CHARACTERIZATION Resting Perfusion: Normal myocardial blood flow at rest. No evidence of resting hypoperfusion. Myocardial Fibrosis and/or edema: Normal gadolinium kinetics are present. No evidence of late gadolinium enhancement is noted, consistent with absence of myocardial scarring, infarction, or necrosis. T2-weighted imaging demonstrates no evidence of myocardial edema or inflammation. OTHER No other significant findings are noted. However, this exam is focused on the cardiac structure and function. IMPRESSION Normal LV size with normal LV systolic function. LVEDVi= 86 ml/m2 and LVEF= 59.6%. Asynchronous septum. Normal RV size with normal RV systolic function. RVEDVi= 72 ml/m2 and RVEF= 55.2%. Biatrial enlargement. Bileaflet mitral valve prolapse is present (anterior > posterior). Moderate MR (posterior eccentric jet). Regurgitant volume is 26 mL (may be underestimated on CMR). No CMR evidence of myocardial scarring, infarction, or necrosis. No evidence of myocardial edema or inflammation. Perfusion analysis demonstrates normal blood flow at rest with no evidence of resting hypoperfusion. Ratio of pulmonary to systemic flow, Qp:Qs ratio = 1.1 (normal < or = 1.2, hemodynamically significant shunt > 1.5), demonstrating no evidence of hemodynamically significant shunt. COMPARISON None CRITICAL RESULT None COMMUNICATION As above The findings of this cardiac MR were reviewed, reported, and signed by López Hamilton MD (Nitrogen Operator). Conclusion Electronically signed by : Jocelyne Hamilton MD 08/16/2025 01:03:54
[2025-08-11] MEDS: GADOTERIDOL INJ 20ML SYRINGE 19 ML IV (11:22)
[2025-08-11] MEDS: SODIUM CHLORIDE 0.9% 10ML SYR (RAD ONLY) 10 ML IV (11:22)
[2025-08-11] MEDS: 0.9 % SODIUM CHLORIDE 50 ML VIAL 20 ML IV (11:22)
== END 2025-08-11 23:59 | disposition home or self-care (01) ==
LOC: RAD 10:07
PROVIDERS: PCP Family Medicine; Visit Provider Physician Assistant
DX: I34.1 Nonrheumatic mitral (valve) prolapse (principal); I34.0 Nonrheumatic mitral (valve) insufficiency; I50.9 Heart failure, unspecified; R93.1 Abnormal findings on diagnostic imaging of heart and coronary circulation
CPT/HCPCS: 75561; A9576

== ENCOUNTER 2025-08-16 08:58 | Day surgery (SDC) | payer MEDICARE, OTHER, SELFPAY ==
[2025-08-11 09:24] VITALS: BMI 27.3
[2025-08-16 09:20] VITALS: BP 164/85; PULSE 67; RESP 17; TEMP 36.2; O2SAT 98
[2025-08-16] MEDS: LACTATED RINGERS 1000ML 1,000 ML 50 ML IV (09:26)
--- NOTE | 2025-08-16 09:33 | P.PNANES_ITS ---
[facility] Disclaimer: The information contained in this section may have been updated after the patient was seen, as this information can be updated by other users. Medical History Eustachian tube dysfunction Decreased hearing of left ear Congestion of left ear Acute serous otitis media Pancreatitis Near syncope Patellofemoral arthritis of right knee Moderate mitral regurgitation LVH (left ventricular hypertrophy) Essential thrombocythemia Polycythemia vera FH myocardial infarction male first degree age known GERD (gastroesophageal reflux disease) Hyperlipidemia Paroxysmal atrial fibrillation Abnormal ECG New onset a-fib Mitral regurgitation Prostatitis Colon cancer Hypertension Chronic sinusitis Mixed hyperlipidemia Idiopathic thrombocytopenic purpura (ITP) Diastolic dysfunction Myocardial bridge Surgical History History of cholecystectomy H/O hemorrhoidectomy History of shoulder surgery H/O hernia repair History of colon resection Family History Other Hypertension No significant family history Stroke Social History Smoking Status: Never smoker alcohol intake: never substance use type: denies use current occupational status: retired Travel in the last 8 weeks?: None household members: none housing: house caffeine: Yes Have you lived/traveled outside [place] in past 30 days?: No Contact w/someone who lives/traveled outside US past 30 days?: No Exposure to someone with infectious disease in past 14 days?: No Do you have a fever (greater than 100.4 F or 38 C)?: No Have you tested positive for COVID-19?: No Exposed to someone with COVID-19 in past 14 days?: No Do you have a sore throat?: No Do you have a cough?: No Do you have any weakness?: No Do you have any diarrhea?: No Are you experiencing any unusual bleeding?: No Do you have any muscle aches/pain?: No Do you have any abdominal pain?: No Are you experiencing loss of taste or smell?: No [facility] Anesthesia Checklist Patient Identification Patient Identification: Arm Band and Verbal (Name & ) Structural Data Admitted From: Home Planned Operative Procedure/s: KARL Consent for Planned Operative Procedure(s) Verified: Yes Verified Documents: Surgical Consent NPO Status Verified Time NPO: 00:00 Chart Verification Results Verified: ECG Additional verifications Anesthesia Reactions: No Airway Assessment Mallampati Score:: Class II C-Spine Mobility Assessed: Yes TMJ Mobility Assessed: Yes Dentition: Good Dentition Neurological Assessment Level of Consciousness: Awake, Alert and Appropriate Hx Seizures: No Numbness or tingling in extremities: No Anesthesia Plan Anesthesia Risk discussed: Yes Anesthesia Plan: Verified ASA Class: III Anesthesia Type: MAC
--- NOTE | 2025-08-16 09:38 | ECG_ITS ---
APPROVED REPORT Exam: Resting ECG HR:57 bpm ECG Measurements Heart Rate 57 AXES ND 189 P 54 QRSd 92 QRS 10 QT 403 T 24 QTc 398 Conclusion SINUS BRADYCARDIA BORDERLINE ECG UNCONFIRMED REPORT Electronically signed by : Alden Mackay MD 08/16/2025 20:26:10
--- NOTE | 2025-08-16 10:00 | CA_ITS ---
APPROVED REPORT EXAM: Comprehensive 2D+3D, Doppler, and color-flow Echocardiogram Farm Reporter: RT Kayley(R) Ht: 5 ft 8 in Wt: 180lbs BSA: 1.95 BP: 151/87 mmHg Indications: Mderate mitral regurgitation on TTE, Mitral valve prolapse Procedure After obtaining informed consent, patient underwent transesophageal echo in the [facility]. Type of Sedation : MAC Sedation start time: 10:40 Case end Time: 10:55 Transesophageal probe was inserted and advanced into esophagus without difficulty by Dr. López Hamilton. The KARL was performed without complications. Throughout the procedure, the blood pressure, pulse oximetry, cardiac rhythm, and rate were monitored. The patient tolerated the procedure without adverse effects. Recovery from conscious sedation was uneventful and vital signs were stable. Left Ventricle The left ventricle is normal size. The left ventricular systolic function is normal. The left ventricular ejection fraction is within the normal range. There is increased left ventricular wall thickness. There is normal LV segmental wall motion. LVEF is 55%. Right Ventricle The right ventricle is normal size. The right ventricular systolic function is normal. Atria Left atrium is mildly dilated. There is spontaneous contrast noted in the left atrial appendage, but no thrombus is visualized in the left atrium or appendage. Right atrium is mildly dilated. The interatrial septum is intact with no evidence for an atrial septal defect. Aortic Valve The aortic valve is trileaflet. The aortic valve is mildly thickened. Trace aortic regurgitation. Mitral Valve There is bileaflet prolapse of the mitral valve leaflets. 3D-KARL demonstrates presence of A2-P2 prolapse. No evidence of chordal rupture of flail segments. No evidence of mitral valve stenosis. Mild to moderate mitral regurgitation. Tricuspid Valve Tricuspid valve is grossly normal in structure and function. Mild tricuspid regurgitation. RVSP is 18 mmHg + RA pressure. Pulmonic Valve The pulmonary valve is normal in structure. Trace pulmonic regurgitation. Great Vessels The aortic root is normal in size. The ascending aorta is normal in size. Pericardium There is no pericardial effusion. Other Information Study Quality: Fair Conclusion Normal biventricular systolic function. Mild biatrial dilation. Bileaflet prolapse of the mitral valve leaflets (A2-P2 prolapse). No evidence of chordal rupture of flail segments. Mild to moderate MR. Mild TR. No evidence of LA or EDUARD thrombus. Electronically signed by : Jocelyne Hamilton MD 08/16/2025 11:34:03
[2025-08-16 10:57] VITALS: BP 103/64; PULSE 62; RESP 14; TEMP 36.3; O2SAT 94
[2025-08-16 11:07] VITALS: BP 115/68; PULSE 65; RESP 15; TEMP 36.3; O2SAT 95
[2025-08-16 11:17] VITALS: BP 127/71; PULSE 57; RESP 16; TEMP 36.3; O2SAT 99
[2025-08-16 11:27] VITALS: BP 136/72; PULSE 60; RESP 16; TEMP 36.3; O2SAT 98
[2025-08-16] MEDS: APIXABAN 5MG TABLET 5 MG PO (11:40)
== END 2025-08-16 11:52 | disposition home or self-care (01) ==
PROVIDERS: PCP Family Medicine; Visit Provider Internal Medicine
DX: I34.1 Nonrheumatic mitral (valve) prolapse (principal); I34.0 Nonrheumatic mitral (valve) insufficiency; I48.0 Paroxysmal atrial fibrillation; R94.31 Abnormal electrocardiogram [ECG] [EKG]; I50.31 Acute diastolic (congestive) heart failure; I11.0 Hypertensive heart disease with heart failure; I38 Endocarditis, valve unspecified; I25.2 Old myocardial infarction; D47.3 Essential (hemorrhagic) thrombocythemia; K21.9 Gastro-esophageal reflux disease without esophagitis; Z85.038 Personal history of other malignant neoplasm of large intestine; Z79.01 Long term (current) use of anticoagulants; Z79.890 Hormone replacement therapy; Z79.82 Long term (current) use of aspirin; Z79.51 Long term (current) use of inhaled steroids; Z79.69 Long term (current) use of other immunomodulators and immunosuppressants; Z82.49 Family history of ischemic heart disease and other diseases of the circulatory system; Z82.3 Family history of stroke
CPT/HCPCS: 93005; 93270; 93312; 93319; J2003; J2704; J7120

== ENCOUNTER 2025-09-13 10:10 | Outpatient (CLI) | payer MEDICARE, OTHER, SELFPAY ==
--- OUTSIDE RECORDS SUMMARY | 2025-09-13 10:13 | XMS_ITS | Clinical Summary ---
Author Organization [facility] Address [address] [place] [address] Care Team Providers Care Research Program Internship Name Role Phone Alden Hidalgo MD Primary [...] ANNUAL PHYSICAL 09/03/2018 HEPATITIS C SCREENING 09/03/2018 INFLUENZA VACCINE 06/24/2025 COVID-19 Vaccine ( season) 2025 Insurance [facility] MEDICARE ADVANTAGE Care Teams Research Program Internship Relationship Specialty Start Date End Date Alden Hidalgo MD PCP - General Family Medicine 08/21/18
--- OUTSIDE RECORDS SUMMARY | 2025-09-13 10:13 | XMS_ITS | Clinical Summary ---
Author Organization [facility] Address [address] [place] [address] Care Team Providers Care Roll Wrapper Name Role Phone Unavailable Primary Care Provider [...]
[2025-09-13 10:55] LABS: Anion Gap 12.7 mEq/L (5-15); Blood Urea Nitrogen 12 mg/dl (9-20); Calcium 9.1 mg/dl (8.4-10.2); Carbon Dioxide 29 mmol/L (22.0-30.0); Chloride 103 mmol/L (98-107); Creatinine,Serum 1.20 mg/dl (0.66-1.25); Estimated Glomerular Filt Rate 59 ml/min (>60); GFR (African American) 72 ML/MIN (>60); Glucose 112 mg/dl (74-100); Potassium 3.7 mmoL/L (3.5-5.1); Sodium 141 mmol/L (136-145)
== END 2025-09-13 23:59 | disposition home or self-care (01) ==
LOC: LAB 10:10
PROVIDERS: PCP Family Medicine; Visit Provider Internal Medicine
DX: I38 Endocarditis, valve unspecified (principal); I50.9 Heart failure, unspecified
CPT/HCPCS: 36415; 80048

== ENCOUNTER 2025-10-04 09:52 | Outpatient (CLI) | payer MEDICARE, OTHER, SELFPAY ==
[2025-10-04 07:55] VITALS: BMI 27.3
--- OUTSIDE RECORDS SUMMARY | 2025-10-04 09:55 | XMS_ITS | Clinical Summary ---
Author Organization [facility] Address [address] [place] [address] Care Team Providers Care Slot Shift Manager Name Role Phone Unavailable Primary Care Provider [...]
--- OUTSIDE RECORDS SUMMARY | 2025-10-04 09:55 | XMS_ITS | Clinical Summary ---
Author Organization [facility] Address [address] [place] [address] Care Team Providers Care Case Filler Name Role Phone Alden Hidalgo MD Primary [...] 06/24/2025 COVID-19 Vaccine ( season) 2025 Insurance [facility] MEDICARE ADVANTAGE Care Teams Case Filler Relationship Specialty Start Date End Date Alden Hidalgo MD PCP - General Family Medicine 08/21/18
[2025-10-04 10:34] LABS: Hematocrit 36.9 % (42.0-52.0); Hemoglobin 13.1 g/dL (14.1-18.0); Immature Granulocytes % 0.7 %; Mean Corpuscular HGB Conc 35.5 g/dL (31.8-35.4); Mean Corpuscular Volume 113.5 fl (80-94); Nucleated Red Blood Cells % 0 %; Platelet Count 412 K/mm3 (142-424); Red Blood Count 3.25 M/mm3 (4.60-6.20); Red Cell Distribution Width-SD 55.3 fL; White Blood Count 4.6 K/mm3 (4.8-10.8)
[2025-10-04 10:35] LABS: Mean Corpuscular Hemoglobin 40.3 pg (27.0-31.2)
[2025-10-04 10:42] LABS: Alanine Aminotransferase 26 U/L (12-78); Albumin Level 4.1 g/dl (3.5-5.0); Albumin/Globulin Ratio 1.2 (1.1-1.8); Alkaline Phosphatase 66 U/L (38-126); Anion Gap 9.6 mEq/L (5-15); Aspartate Amino Transferase 35 U/L (17-59); Bilirubin,Total 0.7 mg/dl (0.2-1.3); Blood Urea Nitrogen 15 mg/dl (9-20); Calcium 8.9 mg/dl (8.4-10.2); Carbon Dioxide 31 mmol/L (22.0-30.0); Chloride 101 mmol/L (98-107); Creatinine Clearance Estimated 69 mL/min (50-200); Creatinine,Serum 1.10 mg/dl (0.66-1.25); Estimated Glomerular Filt Rate 66 ml/min (>60); GFR (African American) 79 ML/MIN (>60); Globulin 3.3 g/dL (1.3-3.2); Glucose 137 mg/dl (74-100); Potassium 3.6 mmoL/L (3.5-5.1); Sodium 138 mmol/L (136-145); Total Protein,Serum 7.4 g/dl (6.3-8.2)
== END 2025-10-04 23:59 | disposition home or self-care (01) ==
LOC: PREOP 09:52
PROVIDERS: Nurse Anesthetist, Certified Registered; PCP Family Medicine; Visit Provider Student in an Organized Health Care Education/Training Program
DX: Z01.812 Encounter for preprocedural laboratory examination (principal)
CPT/HCPCS: 80053; 85025

== ENCOUNTER 2025-10-12 08:59 | Day surgery (SDC) | payer MEDICARE, OTHER, SELFPAY ==
[2025-10-04 12:26] VITALS: BMI 27.3
[2025-10-12 09:43] VITALS: BP 159/74; PULSE 57; RESP 18; TEMP 36.2; O2SAT 100
[2025-10-12] MEDS: CIPRO 0.3%-DEX 0.1% OTIC SUSP 7.5ML OT (10:12)
[2025-10-12] MEDS: LIDOCAINE 1% W/EPI 1:100,000 20ML VIAL 20 ML (10:12)
[2025-10-12 10:22] VITALS: BP 152/73; PULSE 66; RESP 16; TEMP 36.2; O2SAT 99
--- NOTE | 2025-10-12 10:22 | EXP.OP.NOTE ---
Date of procedure: 10/12/25 Pre-op Diagnosis:: left chronic otitis media Post-op Diagnosis:: same Procedure performed:: left myringotomy with tube insertion Surgeon:: Murtaza Nichols MD Anesthesia: local Estimated blood loss (mL): 0 Operative findings:: left mild serous effusion Operative note:: The patient was brought to the OR, laid in the supine position. His left ear was examined with the operating microscope. He had evidence of a mild to moderate serous effusion. Lidocaine with epinephrine 1-100,000 was injected into the lateral aspect of the ear canal to perform a block. Approximately 2 cc was used. Once appropriate topical anesthetic was achieved a myringotomy was made in the anterior-inferior aspect of the tympanic membrane. Effusion was suctioned from the middle ear space. Naatlia bobbin tube was then placed and then Ciprodex drops instilled into the ear. He was then taken to the recovery room in stable condition. He tolerated the procedure well. Condition: stable Disposition: PACU Complications:: none
== END 2025-10-12 10:22 | disposition home or self-care (01) ==
PROVIDERS: PCP Family Medicine; Visit Provider Student in an Organized Health Care Education/Training Program
PROC: (CPT 69433; principal; 2025-10-12 10:45)
DX: H65.22 Chronic serous otitis media, left ear (principal); I11.9 Hypertensive heart disease without heart failure; J34.2 Deviated nasal septum; M27.0 Developmental disorders of jaws; E78.2 Mixed hyperlipidemia; D69.3 Immune thrombocytopenic purpura; I48.0 Paroxysmal atrial fibrillation; K21.9 Gastro-esophageal reflux disease without esophagitis; Z82.49 Family history of ischemic heart disease and other diseases of the circulatory system; J32.9 Chronic sinusitis, unspecified; Q24.5 Malformation of coronary vessels; I34.0 Nonrheumatic mitral (valve) insufficiency; D45 Polycythemia vera; Z79.01 Long term (current) use of anticoagulants; Z79.890 Hormone replacement therapy; Z79.899 Other long term (current) drug therapy
CPT/HCPCS: 69433; J2004